=== PATIENT | female | born 1970 | race Caucasian/White ===

== ENCOUNTER 2018-06-25 23:28 | Emergency (ER) | payer MEDICARE, OTHER ==
[2018-06-25 23:38] VITALS: TEMP 98.2
--- NOTE | 2018-06-25 23:56 | ED ---
Chest Pain HPI - General Chief Complaint: Chest Pain Stated Complaint: Chest Pain Time Seen by Provider: 06/25/18 23:42 Source: patient, family Mode of arrival: ambulatory Limitations: no limitations - History of Present Illness MD Complaint: chest pain -: days(s) Onset: during rest Pain Location: substernal Pain Radiation: LUE, back Quality: aching Consistency: constant Improves With: nothing Worsens With: nothing Anginal Symptoms: nausea Other Symptoms: acid taste in mouth Treatments Prior to Arrival: none - Related Data Allergies Allergy/AdvReac Type Severity Reaction Status Date / Time alprazolam [From Xanax] Allergy Unknown Verified 06/25/18 23:38 amphetamine aspartate Allergy Unknown Verified 06/25/18 23:38 [From Adderall] amphetamine sulfate Allergy Unknown Verified 06/25/18 23:38 [From Adderall] dextroamphetamine saccharate Allergy Unknown Verified 06/25/18 23:38 [From Adderall] dextroamphetamine sulfate Allergy Unknown Verified 06/25/18 23:38 [From Adderall] pentazocine lactate Allergy Unknown Verified 06/25/18 23:38 [From Talwin] Review of Systems ROS Statement: Those systems with pertinent positive or pertinent negative responses have been documented in the HPI. ROS Other: All systems not noted in ROS Statement are negative. Constitutional: Denies: fever, chills Respiratory: Denies: cough, dyspnea Cardiovascular: Reports: chest pain. Denies: palpitations, edema, syncope Gastrointestinal: Reports: nausea. Denies: abdominal pain, vomiting Genitourinary: Denies: dysuria, hematuria Musculoskeletal: Reports: back pain (Chronic) Skin: Denies: rash Neurological: Denies: headache, weakness, numbness, paresthesias EKG Findings - EKG Results: EKG: interpreted by ZULEMA MORENO, sinus rhythm (Rate approximately 85 bpm), normal axis, normal QRS, normal ST/T, no acute changes - UT, Pacemaker, Normal: Normal tracing: normal tracing Past Medical History Past Medical History: Hypertension, Thyroid Disorder History of Any Multi-Drug Resistant Organisms: None Reported Past Surgical History: Hysterectomy, Tubal Ligation Additional Past Surgical History / Comment(s): lipoma removal Past Psychological History: Bipolar, Depression Smoking Status: Current every day smoker Past Alcohol Use History: None Reported Past Drug Use History: Marijuana General Exam Limitations: no limitations General appearance: alert, in no apparent distress, obese Head exam: Present: atraumatic, normocephalic Eye exam: Present: normal appearance. Absent: scleral icterus, conjunctival injection ENT exam: Present: normal oropharynx Neck exam: Present: normal inspection, full ROM Respiratory exam: Present: normal lung sounds bilaterally. Absent: respiratory distress, wheezes, rales, rhonchi, stridor Cardiovascular Exam: Present: regular rate, normal rhythm, normal heart sounds. Absent: systolic murmur, diastolic murmur, rubs, gallop GI/Abdominal exam: Present: soft. Absent: tenderness, guarding, rebound, rigid , mass Extremities exam: Present: normal inspection, normal capillary refill. Absent: pedal edema, calf tenderness Back exam: Present: normal inspection, paraspinal tenderness. Absent: CVA tenderness (R), CVA tenderness (L) Neurological exam: Present: alert Skin exam: Present: warm, dry, intact, normal color. Absent: rash Course Vital Signs 06/25/18 06/26/18 06/26/18 23:33 01:00 02:00 Temperature 98.2 F Pulse Rate 86 78 72 Respiratory 20 16 17 Rate Blood Pressure 135/96 121/87 117/76 O2 Sat by Pulse 98 96 96 Oximetry 06/26/18 06/26/18 03:00 04:00 Temperature Pulse Rate 87 72 Respiratory 20 12 Rate Blood Pressure 129/80 131/91 O2 Sat by Pulse 95 97 Oximetry Chest Pain MDM - MDM Further history reveals that the patient did have a stress test between 2 and 3 months ago as part of presurgical evaluation for bariatric surgery and she was told that this is normal. The patient is feeling better following the GI cocktail and would like to go home. She has had 2 negative troponins. We did discuss appropriate further care and follow-up as well as return parameters. Disposition Clinical Impression: Chest pain Disposition: HOME SELF-CARE Condition: Good Instructions: Chest Pain (ED) Is patient prescribed a controlled substance at d/c from ED?: No Referrals: Estuardo Aguirre DO [Primary Care Provider] - 1-2 days
[2018-06-26] LABS: Basophils # (A) 0.1 k/uL (0-0.2); Basophils % (A) 1 %; Eosinophils # (A) 0.3 k/uL (0-0.7); Eosinophils % (A) 3 %; HCT 43.1 % (34.0-46.0); Lymphocytes # (A) 2.3 k/uL (1.0-4.8); Lymphocytes % (A) 22 %; MCH 29.9 pg (25.0-35.0); MCHC 32.4 g/dL (31.0-37.0); MCV 92.3 fL (80.0-100.0); Mean Platelet Volume 7.5; Monocytes # (A) 0.3 k/uL (0-1.0); Monocytes % (A) 3 %; Neutrophils # (A) 7.3 k/uL (1.3-7.7); Neutrophils % (A) 70 %; Platelet Count 314 k/uL (150-450); RBC 4.66 m/uL (3.80-5.40); RDW 13.6 % (11.5-15.5); WBC 10.5 k/uL (3.8-10.6)
[2018-06-26 00:09] LABS: ALT 33 U/L (9-52); AST 25 U/L (14-36); Alkaline Phosphatase 116 U/L (38-126); Anion Gap 7 mmol/L; Blood Urea Nitrogen 12 mg/dL (7-17); Calcium 9.4 mg/dL (8.4-10.2); Carbon Dioxide 27 mmol/L (22-30); Chloride 105 mmol/L (98-107); Glucose 109 mg/dL (74-99); Magnesium 2.2 mg/dL (1.6-2.3); Potassium 3.8 mmol/L (3.5-5.1); Sodium 139 mmol/L (137-145); Total Bilirubin 0.2 mg/dL (0.2-1.3)
--- NOTE | 2018-06-26 00:15 | XR ---
EXAMINATION TYPE: XR chest 2V DATE OF EXAM: 06/26/2018 COMPARISON: NONE HISTORY: Chest pain TECHNIQUE: Frontal and lateral views of the chest are obtained. FINDINGS: Heart and mediastinum are normal. Lungs are clear. Diaphragm is normal. Bony thorax is int act. Pulmonary vascularity is normal. There are chest leads. IMPRESSION: Normal chest
[2018-06-26 00:20] LABS: Creatine Kinase 96 U/L (30-135)
[2018-06-26 00:27] LABS: INR 0.9 (<1.2); Partial Thromboplastin Time 24.7 sec (22.0-30.0); Prothrombin Time 9.4 sec (9.0-12.0)
[2018-06-26 00:30] LABS: D-Dimer 0.62 mg/L FEU (<0.60)
[2018-06-26 00:33] LABS: Creatine Kinase MB 0.5 ng/mL (0.0-2.4); Troponin I <0.012 ng/mL (0.000-0.034)
[2018-06-26] MEDS ORDERED: ONDANSETRON 4 MG/2 ML VIAL IVP STA (00:39)
[2018-06-26] MEDS ORDERED: MAG HYDROX/AL HYDROX/SIMETH 30 ML, HYOSCYAMINE ELIXIR 10 ML, CIMETIDINE HCL 300 MG, LID... PO STA ×4 (00:52)
[2018-06-26] MEDS ORDERED: HYDROcodone/APAP 10-325MG 1 EACH TAB PO ONE (00:52)
--- NOTE | 2018-06-26 02:41 | CT ---
EXAMINATION TYPE: CT chest angio for PE DATE OF EXAM: 06/26/2018 COMPARISON: None HISTORY: r/o PE chest pain CT DLP: 518.1 mGycm Automated exposure control for dose reduction was used. CONTRAST: CT Chest for pulmonary embolism performed with with IV Contrast, patient injected with 70 mL of Isovu e 370. FINDINGS: There are 3-D post processed images. The lungs are clear of consolidation. There is no evidence of a pulmonary mass. There is no pleural effusion. There is minimal subsegmental atelectasis at the left l shanda base. There is no pericardial effusion. There is normal contrast opacification of the pulmonary a rteries. There are no filling defects. There are no hilar masses. There is no mediastinal adenopathy. Thoracic aorta is intact without evidence of aneurysm or dissection. The bony thorax is intact. IMPRESSION: No evidence of pulmonary embolism. Negative exam.
[2018-06-26 04:06] VITALS: BP 131/91; PULSE 72; RESP 12
== END 2018-06-26 04:17 | disposition home or self-care (01) ==
LOC: EC 23:28
DX: R07.2 Precordial pain (principal); R11.0 Nausea; F17.200 Nicotine dependence, unspecified, uncomplicated; Z88.8 Allergy status to other drugs, medicaments and biological substances
CPT/HCPCS: 36415 ×2; 93005; 85379; 80053; 82550; 82553; 83735; 84484 ×2; 85025; 85610; 85730; 71046; 71275; 99285; 96374; J2405; Q9967

== ENCOUNTER → 2021-04-04 | Outpatient (CLI) | payer MEDICARE, OTHER ==
--- NOTE | 2021-04-05 16:44 | CT ---
EXAMINATION TYPE: CT lumbar spine wo con DATE OF EXAM: 04/04/2021 COMPARISON: HISTORY: Pt past sx hx L5/S1, several months ago bent over, felt a crack/pop. Chronic pain and numbne ss from waist to mid thigh bilaterally CT DLP: 436.50 mGycm CONTRAST: CT scan of the lumbar is performed , patient injected with mL of . TECHNIQUE: CT of the lumbar spine is performed on a spiral scan at 3 mm thick sections. Reconstructed images are performed in the coronal and sagittal planes. FINDINGS: T12-L1: No focal disc herniation or significant disc bulge is evident. No spinal canal stenosis or neural foraminal stenosis is present. L1-L2: No focal disc herniation or significant disc bulge is evident. No spinal canal stenosis or n eural foraminal stenosis is present L2-L3: Mild broad-based disc bulge present with anterior thecal sac contact. No spinal canal stenosis or neural foraminal stenosis is present. L3-L4: Broad-based disc bulge is mild anterior thecal sac compression. Facet hypertrophy and ligament um flavum laxity is posterior-lateral thecal sac impression. Some spinal canal narrowing may be prese nt. Neural foramen are patent. L4-L5: No focal disc herniation or significant disc bulge is evident. No spinal canal stenosis or n eural foraminal stenosis is present L5-S1: There is a fusion with pedicle screws at L5-S1. No focal disc herniation or significant disc b ulge is identified. Vertebral alignment appears normal. IMPRESSION: 1. Disc bulge at L2-3 discussed above, no stenosis is present. 2. L3-4 Broad-based disc bulging with mild anterior thecal sac impression. Facet hypertrophy and liga mentum flavum laxity or contribute to some spinal canal narrowing through this level
== END | disposition home or self-care (01) ==
LOC: RADCTMAIN 17:06
PROVIDERS: ATTEND Orthopaedic Surgery
DX: M51.26 Other intervertebral disc displacement, lumbar region (principal); M47.816 Spondylosis without myelopathy or radiculopathy, lumbar region; M99.73 Connective tissue and disc stenosis of intervertebral foramina of lumbar region
CPT/HCPCS: 72131

== ENCOUNTER 2021-09-05 23:31 | Inpatient (IN) | payer MEDICARE, OTHER ==
[2021-09-05] MEDS ORDERED: SODIUM CHLORIDE 0.9% 1,000 ML IV STA (23:33)
[2021-09-05] MEDS ORDERED: SODIUM CHLORIDE 0.9% 500 ML 500 ML IV STA (23:33)
--- NOTE | 2021-09-05 23:35 | ED ---
Overdose HPI - General Stated Complaint: Overdose Time Seen by Provider: 09/05/21 23:32 Source: RN notes reviewed, old records reviewed, Caregiver Mode of arrival: EMS Limitations: altered mental status - History of Present Illness Initial Comments: This is a 51-year-old female to the emergency room today. Patient presents today for evaluation of overdose or possibly taking too much over medication. Patient is currently denying suicidal thoughts. No recent travel history or sick contacts. Patient does have a long medical history, mildly responsive. A poor strain. History obtained from EMS and patient's prior chart. Patient apparently did take too much transferring as well as too much Depakote prior to arrival. MD Complaint: intentional overdose -: hour(s) Intent: unwilling to say, other (Denying suicide) How Overdose Was Discovered: family/friend present at time, called 911 Context: Accidental Overdose: uncertain what happened Associated Symptoms: depression Treatments Prior to Arrival: oxygen, IV fluids - Related Data Home Medications Medication Instructions Recorded Confirmed Albuterol Sulfate [Ventolin HFA] 1 - 2 puff INHALATION Q6H PRN 05/20/21 05/20/21 Dextroamphetamine/Amphetamine 20 mg PO DAILY 05/20/21 05/20/21 [Adderall] Divalproex ER [Depakote ER] 750 mg PO HS 05/20/21 05/20/21 Doxepin [SINEquan] 25 mg PO HS 05/20/21 05/20/21 Gabapentin [Neurontin] 600 mg PO TID 05/20/21 05/20/21 HYDROcodone/APAP 10-325MG [[place] 2 tab PO Q6HR PRN 05/20/21 05/20/21 10-325] Tiotropium 18 Mcg/Puff [Spiriva] 1 puff INHALATION DAILY PRN 05/20/21 05/20/21 Vortioxetine Hydrobromide 20 mg PO DAILY 05/20/21 05/20/21 [Trintellix] amLODIPine BESYLATE 5 mg PO DAILY 05/20/21 05/20/21 clonazePAM [KlonoPIN] 0.5 mg PO TID PRN 05/20/21 05/20/21 Allergies Allergy/AdvReac Type Severity Reaction Status Date / Time alprazolam [From Xanax] Allergy Unknown Verified 09/05/21 23:37 codeine Allergy Dyspnea Verified 09/05/21 23:37 Latex, Natural Rubber Allergy Rash/Hives Verified 09/05/21 23:37 pentazocine lactate Allergy Dyspnea Verified 09/05/21 23:37 [From Tangela] morphine AdvReac Itching Verified 09/05/21 23:37 Review of Systems ROS Statement: Those systems with pertinent positive or pertinent negative responses have been documented in the HPI. ROS Other: All systems not noted in ROS Statement are negative. Past Medical History Past Medical History: Asthma, Cancer, COPD, Hypertension, Musculoskeletal Disorder, Thyroid Disorder Additional Past Medical History / Comment(s): herniated disc, had surg. 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 cervical cancer History of Any Multi-Drug Resistant Organisms: None Reported Past Surgical History: Back Surgery, Hysterectomy, Tubal Ligation Additional Past Surgical History / Comment(s): lipoma removal, back surg. x2-2nd was fusion Past Anesthesia/Blood Transfusion Reactions: No Reported Reaction Smoking Status: Current every day smoker General Exam Limitations: altered mental status General appearance: alert, lethargic, in distress Head exam: Present: atraumatic, normocephalic, normal inspection Eye exam: Present: normal appearance, PERRL, EOMI. Absent: scleral icterus, conjunctival injection, periorbital swelling ENT exam: Present: normal exam, mucous membranes dry Neck exam: Present: normal inspection. Absent: tenderness, meningismus, lymphadenopathy Respiratory exam: Present: normal lung sounds bilaterally. Absent: respiratory distress, wheezes, rales, rhonchi, stridor Cardiovascular Exam: Present: regular rate, normal rhythm, normal heart sounds. Absent: systolic murmur, diastolic murmur, rubs, gallop, clicks GI/Abdominal exam: Present: soft, normal bowel sounds. Absent: distended, tenderness, guarding, rebound, rigid Extremities exam: Present: normal inspection, full ROM, normal capillary refill. Absent: tenderness, pedal edema, joint swelling, calf tenderness Back exam: Present: normal inspection Neurological exam: Present: alert, oriented X3, CN II-XII intact Psychiatric exam: Present: normal affect, normal mood Skin exam: Present: warm, dry, intact, normal color. Absent: rash Course Vital Signs 09/05/21 09/06/21 23:32 00:21 Temperature 97.4 F L Pulse Rate 83 95 Respiratory 14 16 Rate Blood Pressure 98/69 103/66 O2 Sat by Pulse 100 98 Oximetry - Reevaluation(s) Reevaluation #1: 09/06/21 00:51 Medical record is reviewed Reevaluation #2: 09/06/21 00:51 Is informed of results and questions are answered Reevaluation #3: 09/06/21 00:52 Patient improvement with symptomatic treatment here in the ER - Consultations Consultation #1: Spoke with jazmin who agrees to admit this patient Medical Decision Making - Medical Decision Making 51 female who took likely overdose of medication unintentional not suicidal, patient severely dehydrated with low blood pressure here in the ER blood pressure improved with hydration here in the ER. Patient will be admitted for continued hydration and monitoring - Lab Data Result diagrams: 09/05/21 23:40 Lab Results 09/05/21 09/05/21 09/06/21 Range/Units 23:40 23:42 00:04 WBC 14.6 H (3.8-10.6) k/uL RBC 4.68 (3.80-5.40) m/uL Hgb 14.8 (11.4-16.0) gm/dL Hct 43.6 (34.0-46.0) % MCV 93.2 (80.0-100.0) fL MCH 31.6 (25.0-35.0) pg MCHC 33.9 (31.0-37.0) g/dL RDW 13.8 (11.5-15.5) % Plt Count 332 (150-450) k/uL MPV 8.9 Neutrophils % 88 % Lymphocytes % 9 % Monocytes % 3 % Eosinophils % 0 % Basophils % 0 % Neutrophils # 12.8 H (1.3-7.7) k/uL Lymphocytes # 1.3 (1.0-4.8) k/uL Monocytes # 0.4 (0-1.0) k/uL Eosinophils # 0.0 (0-0.7) k/uL Basophils # 0.0 (0-0.2) k/uL POC Glucose (mg/dL) 115 H (75-99) mg/dL POC Glu [place] ID Ronna Padilla Urine HCG, Qual Not Detected (Not Detectd) - EKG Data -: EKG Interpreted by Me (EKG is sinus tachycardia 102 [place] 160 QRS 107 QTC 436`) Disposition Clinical Impression: Drug overdose, Weakness, Dehydration Narrative: Triamterene Overdose Disposition: ADMITTED IP TO THIS HOSP Condition: Fair Is patient prescribed a controlled substance at d/c from ED?: No Referrals: None,Stated [REFERRING] - 1-2 days
[2021-09-05 23:44] LABS: Glucose,Whole Blood 115 mg/dL (75-99)
[2021-09-06 00:10] LABS: Basophils % (A) 0 %; Eosinophils % (A) 0 %; HCT 43.6 % (34.0-46.0); HGB 14.8 gm/dL (11.4-16.0); Lymphocytes # (A) 1.3 k/uL (1.0-4.8); Lymphocytes % (A) 9 %; MCH 31.6 pg (25.0-35.0); MCHC 33.9 g/dL (31.0-37.0); MCV 93.2 fL (80.0-100.0); Mean Platelet Volume 8.9; Monocytes # (A) 0.4 k/uL (0-1.0); Monocytes % (A) 3 %; Neutrophils # (A) 12.8 k/uL (1.3-7.7); Neutrophils % (A) 88 %; Platelet Count 332 k/uL (150-450); RBC 4.68 m/uL (3.80-5.40); RDW 13.8 % (11.5-15.5); WBC 14.6 k/uL (3.8-10.6)
[2021-09-06 00:14] LABS: AST 36 U/L (14-36); Acetaminophen <10.0 ug/mL; African American GFR (CKD) 60 (>60 ml/min/1.73 sqM); Albumin 4.3 g/dL (3.5-5.0); Alcohol <10 mg/dL; Alkaline Phosphatase 85 U/L (38-126); Anion Gap 18 mmol/L; Blood Urea Nitrogen 26 mg/dL (7-17); Calcium 9.8 mg/dL (8.4-10.2); Carbon Dioxide 20 mmol/L (22-30); Chloride 100 mmol/L (98-107); Glucose 140 mg/dL (74-99); Lipase 65 U/L (23-300); Non-African American GFR(CKD) 52 (>60 ml/min/1.73 sqM); Phosphorus 4.2 mg/dL (2.5-4.5); Potassium 3.8 mmol/L (3.5-5.1); Salicylate <1.0 mg/dL; Sodium 138 mmol/L (137-145); Total Bilirubin 0.5 mg/dL (0.2-1.3); Total Protein 7.6 g/dL (6.3-8.2)
[2021-09-06 00:20] LABS: ALT 20 U/L (4-34)
[2021-09-06] MEDS ORDERED: SODIUM CHLORIDE 0.9% 1,000 ML IV STA (00:45)
[2021-09-06] MEDS ORDERED: ONDANSETRON 4 MG/2 ML VIAL IVP PRN (00:46)
[2021-09-06] MEDS ORDERED: NALOXONE 0.4 MG/ML 1 ML VIAL IV PRN (00:46)
[2021-09-06 00:55] LABS: Amphetamine Screen,Urine Detected (NotDetected); Barbiturate Screen,Urine Not Detected (NotDetected); Benzodiazepines Screen,Urine Not Detected (NotDetected); Cocaine Screen,Urine Not Detected (NotDetected); Methadone Screen, Urine Not Detected (NotDetected); Opiate Screen,Urine Not Detected (NotDetected); Oxycodone Screen, Urine Not Detected (NotDetected); Phencyclidine Screen,Urine Not Detected (NotDetected); Tricyclic Antidepressant,Urine Detected (NotDetected); Urn Cannabinoid Scrn Detected (NotDetected)
[2021-09-06] MEDS: SODIUM CHLORIDE 0.9% 1,000 ML IV SCH ×3 (03:36→17:07)
[2021-09-06] MEDS ORDERED: SODIUM CHLORIDE 0.9% 1,000 ML IV ONE (03:41)
--- NOTE | 2021-09-06 04:17 | P.HPIM ---
History of Present Illness H&P Date: 09/06/21 The patient is a 51-year-old female with an extensive PMH including bipolar disorder, COPD, hypertension, hypothyroidism, depression, who was brought into the emergency room after an overdose. The patient was was lethargic at the time of interview and thereby history obtained from the sister at the bedside in the ED physician. The patient reportedly told the ED staff that she took her nighttime medications including clonazepam, Flexeril, and gabapentin, and may have taken more than her usual dose. The sister however reports that the patient had been sleeping all day, although she did not pay much attention to this as the patient often sleeps during the daytime. The sister also states анна t the patient is also had multiple social stressors and she believes this may be an intentional overdose as she appeared to be depressed over the past few days. The patient was arousable but was not answering any questions appropriately. EKG in emergency room revealed sinus tachycardia with short MN interval at 102 bpm. laboratory evaluation revealed WBC count of 14.6, BUN 26, creatinine 1.22 (up from baseline of 0.6) with urine toxicology positive for amphetamines, marijuana, and TCAs. Review of systems: Pertinent positives and negatives as discussed in HPI, a complete review of systems was performed and all other systems are negative. Physical examination: General: non toxic, no distress, appears older than stated age, overweight Derm: no unusual rashes/lesions no unusual ecchymoses, warm, dry Head: atraumatic, normocephalic, symmetric Eyes: EOMI, no lid lag, anicteric sclera, pupils equal round reactive to light ENT: Nose and ears atraumatic, no thrush, no pharyngeal erythema Neck: No thyromegaly, no cervical lymphadenopathy, trachea midline, supple Mouth: no lip lesion, mucus membranes dry Cardiovascular: S1S2 reg, no murmur, positive posterior tibial pulse bilateral, no edema, capillary refill less than 2 seconds Lungs: CTA bilateral, no rhonchi, no rales , no accessory muscle use Abdominal: soft, nontender to palpation, no guarding, no appreciable organomegaly, normal bowel sounds Ext: no gross muscle atrophy, moving all extremities, no contractures, Neuro: No gross focal deficits noted although exam limited as patient not following all commands Psych: Somnolent Assessment/plan Overdose of unknown substance, multiple possible medications -Valproic level therapeutic -Salicylates and Tylenol levels unremarkable -Possibly secondary to clonazepam overdose -Continue to monitor closely -IV fluids -Cardiac monitoring -Obtain lactate levels -Question patient regarding possible suicidal ideation upon improvements in mental status Acute kidney injury -Suspect is secondary to dehydration -IV fluids DVT prophylaxis -Heparin subcu The patient is admitted with an anticipated less than 2 midnight stay for evaluation of overdose CODE STATUS: Full Code Discussed with: Patient Anticipated discharge date: 1-[address]: Home Past Medical History Past Medical History: Asthma, Cancer, COPD, Hypertension, Musculoskeletal Disorder, Thyroid Disorder Additional Past Medical History / Comment(s): herniated disc, had surg. 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 cervical cancer History of Any Multi-Drug Resistant Organisms: None Reported Past Surgical History: Back Surgery, Hysterectomy, Tubal Ligation Additional Past Surgical History / Comment(s): lipoma removal, back surg. x2-2nd was fusion Past Anesthesia/Blood Transfusion Reactions: No Reported Reaction Smoking Status: Current every day smoker Medications and Allergies Home Medications Medication Instructions Recorded Confirmed Type Albuterol Sulfate [Ventolin HFA] 1 - 2 puff INHALATION Q6H PRN 05/20/21 05/20/21 History Dextroamphetamine/Amphetamine 20 mg PO DAILY 05/20/21 05/20/21 History [Adderall] Divalproex ER [Depakote ER] 750 mg PO HS 05/20/21 05/20/21 History Doxepin [SINEquan] 25 mg PO HS 05/20/21 05/20/21 History Gabapentin [Neurontin] 600 mg PO TID 05/20/21 05/20/21 History HYDROcodone/APAP 10-325MG [[place] 2 tab PO Q6HR PRN 05/20/21 05/20/21 History 10-325] Tiotropium 18 Mcg/Puff [Spiriva] 1 puff INHALATION DAILY PRN 05/20/21 05/20/21 History Vortioxetine Hydrobromide 20 mg PO DAILY 05/20/21 05/20/21 History [Trintellix] amLODIPine BESYLATE 5 mg PO DAILY 05/20/21 05/20/21 History clonazePAM [KlonoPIN] 0.5 mg PO TID PRN 05/20/21 05/20/21 History Allergies Allergy/AdvReac Type Severity Reaction Status Date / Time alprazolam [From Xanax] Allergy Unknown Verified 09/05/21 23:37 codeine Allergy Dyspnea Verified 09/05/21 23:37 Latex, Natural Rubber Allergy Rash/Hives Verified 09/05/21 23:37 pentazocine lactate Allergy Dyspnea Verified 09/05/21 23:37 [From Talwin] morphine AdvReac Itching Verified 09/05/21 23:37 Physical Exam Vitals: Vital Signs Temp Pulse Resp BP Pulse Ox 09/06/21 02:23 97.4 F L 100 14 102/74 93 L 09/06/21 01:37 94 12 107/64 94 L 09/06/21 00:21 95 16 103/66 98 09/05/21 23:32 97.4 F L 83 14 98/69 100 Intake and Output 09/05/21 09/05/21 09/06/21 14:59 22:59 06:59 Other: Weight 77.111 kg Results CBC & Chem 7: 09/05/21 23:40 09/05/21 23:40 Labs: Abnormal Lab Results - Last 24 Hours (Table) 09/05/21 09/05/21 09/05/21 Range/Units 23:40 23:40 23:42 WBC 14.6 H (3.8-10.6) k/uL Neutrophils # 12.8 H (1.3-7.7) k/uL Carbon Dioxide 20 L (22-30) mmol/L BUN 26 H (7-17) mg/dL Creatinine 1.22 H (0.52-1.04) mg/dL Glucose 140 H (74-99) mg/dL POC Glucose (mg/dL) 115 H (75-99) mg/dL U Tricyclic Antidepress (NotDetected) Ur Amphetamines Screen (NotDetected) U Marijuana (THC) Screen (NotDetected) 09/06/21 Range/Units 00:03 WBC (3.8-10.6) k/uL Neutrophils # (1.3-7.7) k/uL Carbon Dioxide (22-30) mmol/L BUN (7-17) mg/dL Creatinine (0.52-1.04) mg/dL Glucose (74-99) mg/dL POC Glucose (mg/dL) (75-99) mg/dL U Tricyclic Antidepress Detected H (NotDetected) Ur Amphetamines Screen Detected H (NotDetected) U Marijuana (THC) Screen Detected H (NotDetected)
[2021-09-06] MEDS ORDERED: VANCOMYCIN IV PER PHARMACY 1 EACH MISC MISCELLANE PRN (04:34)
[2021-09-06] MEDS: PIPERACILLIN-TAZOBACTAM 3.375 GM in SODIUM CHLORIDE 0.9% 100 ML IVPB SCH ×2 (05:46→17:07)
[2021-09-06] MEDS ORDERED: VANCOMYCIN 1,500 MG in SODIUM CHLORIDE 0.9% 250 ML IVPB SCH (06:00)
[2021-09-06] MEDS ORDERED: HALOPERIDOL LACTATE 5 MG/ML 1 ML VIAL IM STA (07:35)
[2021-09-06 09:29] LABS: Lactic Acid, Venous 6.4 mmol/L (0.7-2.0)
[2021-09-06 09:31] LABS: AST 42 U/L (14-36); African American GFR (CKD) 88 (>60 ml/min/1.73 sqM); Albumin 3.8 g/dL (3.5-5.0); Albumin/Globulin Ratio 1.3; Alkaline Phosphatase 70 U/L (38-126); Anion Gap 14 mmol/L; Blood Urea Nitrogen 23 mg/dL (7-17); Carbon Dioxide 20 mmol/L (22-30); Chloride 104 mmol/L (98-107); Glucose 139 mg/dL (74-99); Non-African American GFR(CKD) 76 (>60 ml/min/1.73 sqM); Potassium 3.2 mmol/L (3.5-5.1); Sodium 138 mmol/L (137-145); Total Bilirubin 0.6 mg/dL (0.2-1.3); Total Protein 6.8 g/dL (6.3-8.2)
[2021-09-06 09:34] LABS: HGB 13.2 gm/dL (11.4-16.0); MCH 31.5 pg (25.0-35.0); MCHC 32.9 g/dL (31.0-37.0); MCV 95.7 fL (80.0-100.0); Mean Platelet Volume 8.7; Platelet Count 267 k/uL (150-450); RBC 4.18 m/uL (3.80-5.40); RDW 13.3 % (11.5-15.5); WBC 19.3 k/uL (3.8-10.6)
[2021-09-06 09:44] LABS: ALT 24 U/L (4-34)
[2021-09-06] MEDS: HEPARIN SODIUM,PORCINE/PF 5,000 UNIT/0.5 ML SYRINGE SQ SCH ×3 (10:13→22:31)
[2021-09-06 12:14] LABS: Appearance,Urine Cloudy (Clear); Bilirubin,Urine Negative (Negative); Blood,Urine Negative (Negative); Color,Urine Yellow; Glucose,Urine (UA) Negative (Negative); Hyaline Casts,Urine 1 /lpf (0-2); Ketones,Urine Negative (Negative); Leukocyte Esterase,Urine Negative (Negative); Mucus,Urine Rare /hpf; Nitrite,Urine Negative (Negative); PH, Urine 6.5 (5.0-8.0); Protein,Urine Negative (Negative); RBC,Urine 1 /hpf (0-5); Specific Gravity,Urine 1.014 (1.001-1.035); Squamous Epithelial Cell,Urine 2 /hpf (0-4); Urobilinogen,Urine <2.0 mg/dL (<2.0); WBC,Urine 1 /hpf (0-5)
[2021-09-06] MEDS: PANTOPRAZOLE 40 MG/10 ML VIAL IV SCH (14:03)
--- NOTE | 2021-09-06 14:03 | XR ---
EXAMINATION TYPE: XR chest 1V portable DATE OF EXAM: 09/06/2021 COMPARISON: X-ray dated 06/26/2018 HISTORY: Pneumonia TECHNIQUE: Single frontal view of the chest is obtained. FINDINGS: Elongated opacity seen in the left mid to lower lung zone with a triangular opacity in the left lung base. They could represent areas of pneumonia versus atelectasis, please correlate clinically. Follow -up to complete resolution is advised as they were not appreciated on the previous x-ray. Grossly unremarkable remainder of the lungs. No sizable pleural effusion or definite pneumothorax. No cardiomegaly. Osteophytosis of the inferior aspect of the left humeral head. IMPRESSION: New opacities in the left mid to lower lung zones as described above, pneumonia versus atelectasis. R ecommend clinical correlation and follow-up to complete resolution after appropriate treatment.
[2021-09-06] MEDS ORDERED: HALOPERIDOL LACTATE 5 MG/ML 1 ML VIAL IM PRN (16:12)
[2021-09-06] MEDS ORDERED: AZITHROMYCIN 500 MG TAB PO STA (17:43)
[2021-09-06] MEDS ORDERED: AMOXIC-POT CLAV 875-125MG 1 EACH TAB PO STA (17:43)
[2021-09-06] MEDS ORDERED: HYDROcodone/APAP 10-325MG 1 EACH TAB PO PRN (17:52)
[2021-09-06] MEDS ORDERED: ALBUTEROL NEBULIZED 2.5 MG/3 ML INHALATION PRN (17:53)
[2021-09-06] MEDS ORDERED: clonazePAM 0.5 MG TAB PO PRN (17:56)
--- NOTE | 2021-09-06 17:58 | P.PN ---
Subjective Progress Note Date: 09/06/21 (delayed charting seen at 0930) Principal diagnosis: suicide attempt Patient is a 51-year-old female with multiple comorbid conditions including COPD, hypertension, hypothyroidism, bipolar disorder, and history of prior overdose attempts was brought to the emergency room after an overdose. In the ER she was found to be rather lethargic. EKG demonstrated sinus tachycardia with short [place] interval at 102. Laboratory analysis demonstrated white blood cell count at 14.6, BUN 26, creatinine 1.22 up from a baseline of 0.6. Urine toxicology was positive for amphetamines, marijuana, and TCAs. She was admitted and started on IV fluids. She did become slightly hypotensive overnight and required 2 L bolus. She was also started on Zosyn with concerns for possible sepsis. On the morning of 09/06 she became arousable and very agitated. She required IM Haldol. She reports that her IV and was refusing all medical interventions. Patient seen and examined at bedside. She is requesting to be discharged. She states she needs to go home. I asked her why she took some any pills and she stated she was depressed and didn't know what to do with herself anymore. She denies any nausea, vomiting, shortness of breath. She demands that she be released I told her we are unable to. Her lactic acid is elevated at 6 I strongly recommended that she allow us to r econsider her IV for fluid hydration. She denies continued to refuse care. We discussed risks and benefits and was clear the patient was not capable of full understanding risks and benefits at this time due to being upset about wanting to leave. General: non toxic, no distress, appears at stated age Derm: warm, dry Head: atraumatic, normocephalic, symmetric Eyes: EOMI, no lid lag, anicteric sclera Mouth: no lip lesion, [mucus membranes dry Cardiovascular: S1S2 reg, no murmur, positive posterior tibial pulse bilateral, Lungs: Decreased breath sounds bilateral, no rhonchi, no rales , no accessory muscle use Abdominal: soft, nontender to palpation, no guarding, no appreciable organomegaly Ext: no gross muscle atrophy, no edema, no contractures Neuro: CN II-XI grossly intact, no focal neuro deficits Psych: Alert, oriented, angry, hostile, and argumentative Suicide attempt Intentional Depakote overdose Patient had a petition filled out, I did fill out a certification and she is kelvin sekou not understanding of her need for treatment at this time and cannot comprehend risks versus benefits. However I do not feel there is an indication to treat over objection. We'll attempt to continue to treat the patient with Haldol and increase her compliance. Should she become more lethargic we will get an insert an IV and it received with rapid fluid resuscitation for her sepsis. Pneumonia with sepsis -Ideally would proceed with IV antibiotics, however patient adamantly refusing to have an IV reinserted. Therefore we'll attempt oral Zithromax and Augmentin. -Repeat chest x-ray as indicated -Patient will not produce sputum cultures. -Urinalysis was negative Elevated lactic acidosis which may be secondary to Depakote ingestion versus sepsis Acute kidney injury -Continue to follow lactic acid -Encourage oral fluid intake as patient has refused IV access - reapt labs in AM HTN, now with hypotnesion - hod triamterene/HCTZ - follow BP Hypothyroidism - synthroid Tobacco abuse - cesation - nicotine replacement DVT prophylaxis: early ambulation Discussed with: patient, nursing Anticipated discharge: in 1-[address]: MHU A total of 65 minutes was spent on the care of this complex patient more than 50% of the time was spent in counseling and care coordination. Objective - Vital Signs Vital signs: Vital Signs Temp 98.3 F 09/06/21 15:22 Pulse 98 09/06/21 15:22 Resp 18 09/06/21 15:22 BP 101/64 09/06/21 15:22 Pulse Ox 96 09/06/21 15:22 Intake & Output 09/05/21 09/06/21 09/06/21 18:59 06:59 18:59 Weight 77.111 kg - Labs CBC & Chem 7: 09/06/21 09:01 09/06/21 09:01 Labs: Abnormal Lab Results - Last 24 Hours (Table) 09/05/21 09/05/21 09/05/21 Range/Units 23:40 23:40 23:42 WBC 14.6 H (3.8-10.6) k/uL Neutrophils # 12.8 H (1.3-7.7) k/uL Potassium (3.5-5.1) mmol/L Carbon Dioxide 20 L (22-30) mmol/L BUN 26 H (7-17) mg/dL Creatinine 1.22 H (0.52-1.04) mg/dL Glucose 140 H (74-99) mg/dL POC Glucose (mg/dL) 115 H (75-99) mg/dL Plasma Lactic Acid Mahamed (0.7-2.0) mmol/L AST (14-36) U/L Urine Appearance (Clear) Urine Mucus (None) /hpf U Tricyclic Antidepress (NotDetected) Ur Amphetamines Screen (NotDetected) U Marijuana (THC) Screen (NotDetected) 09/06/21 09/06/21 09/06/21 Range/Units 00:03 03:47 09:01 WBC (3.8-10.6) k/uL Neutrophils # (1.3-7.7) k/uL Potassium (3.5-5.1) mmol/L Carbon Dioxide (22-30) mmol/L BUN (7-17) mg/dL Creatinine (0.52-1.04) mg/dL Glucose (74-99) mg/dL POC Glucose (mg/dL) (75-99) mg/dL Plasma Lactic Acid Mahamed 6.0 H* 6.4 H* (0.7-2.0) mmol/L AST (14-36) U/L Urine Appearance (Clear) Urine Mucus (None) /hpf U Tricyclic Antidepress Detected H (NotDetected) Ur Amphetamines Screen Detected H (NotDetected) U Marijuana (THC) Screen Detected H (NotDetected) 09/06/21 09/06/21 09/06/21 Range/Units 09:01 09:01 10:50 WBC 19.3 H (3.8-10.6) k/uL Neutrophils # (1.3-7.7) k/uL Potassium 3.2 L (3.5-5.1) mmol/L Carbon Dioxide 20 L (22-30) mmol/L BUN 23 H (7-17) mg/dL Creatinine (0.52-1.04) mg/dL Glucose 139 H (74-99) mg/dL POC Glucose (mg/dL) (75-99) mg/dL Plasma Lactic Acid Mahamed (0.7-2.0) mmol/L AST 42 H (14-36) U/L Urine Appearance Cloudy H (Clear) Urine Mucus Rare H (None) /hpf U Tricyclic Antidepress (NotDetected) Ur Amphetamines Screen (NotDetected) U Marijuana (THC) Screen (NotDetected)
[2021-09-06] MEDS: NICOTINE 21MG/24HR PATCH TRANSDERM SCH (18:18)
[2021-09-06] MEDS ORDERED: POTASSIUM CHLORIDE ER 20 MEQ TAB.ER PO STA (22:01)
[2021-09-06] MEDS: AMOXIC-POT CLAV 875-125MG 1 EACH TAB PO SCH ×2 (22:25)
[2021-09-06] MEDS: PRAMIPEXOLE 1 MG TAB PO SCH ×2 (22:25)
[2021-09-06] MEDS: GABAPENTIN 300 MG CAP PO SCH (22:25)
[2021-09-07] MEDS: SODIUM CHLORIDE 0.9% 1,000 ML IV SCH (01:42)
[2021-09-07] MEDS: LEVOTHYROXINE 25 MCG TAB PO SCH (06:03)
[2021-09-07] MEDS: PANTOPRAZOLE 40 MG/10 ML VIAL IV SCH (07:50)
[2021-09-07] MEDS: NICOTINE 21MG/24HR PATCH TRANSDERM SCH (07:57)
[2021-09-07] MEDS: AMOXIC-POT CLAV 875-125MG 1 EACH TAB PO SCH ×2 (07:58→20:15)
[2021-09-07] MEDS: AZITHROMYCIN 500 MG TAB PO SCH (07:58)
[2021-09-07] MEDS: GABAPENTIN 300 MG CAP PO SCH ×3 (07:58→20:15)
[2021-09-07] MEDS: HEPARIN SODIUM,PORCINE/PF 5,000 UNIT/0.5 ML SYRINGE SQ SCH ×3 (08:03→23:06)
[2021-09-07] MEDS: IPRATROPIUM 0.5 MG/2.5 ML NEBU INHALATION SCH ×4 (08:19→19:36)
[2021-09-07 08:53] LABS: Basophils # (A) 0.04 X 10*3/uL (0.00-0.10); Basophils % (A) 0.2 %; Eosinophils # (A) 0.05 X 10*3/uL (0.04-0.35); Eosinophils % (A) 0.2 %; HCT 37.8 % (37.2-46.3); HGB 12.5 g/dL (12.0-15.0); Immature Grans, Automated 0.8 %; Lymphocytes % (A) 5.9 %; MCH 31.2 pg (27.0-32.0); MCHC 33.1 g/dL (32.0-37.0); MCV 94.3 fL (80.0-97.0); Monocytes # (A) 0.79 X 10*3/uL (0.20-1.00); Monocytes % (A) 3.9 %; NRBC Per 100 WBC 0 /100 WBCS (0.0-0.0); Neutrophils # (A) 18.07 X 10*3/uL (1.80-7.70); Platelet Count 264 X 10*3/uL (140-440); RBC 4.01 X 10*6/uL (4.10-5.20); RDW 13.6 % (11.5-14.5); WBC 20.31 X 10*3/uL (4.50-10.00)
[2021-09-07 09:06] LABS: African American GFR (CKD) 100.3 (60.0-200.0); Albumin 3.5 g/dL (3.8-4.9); Albumin/Globulin Ratio 1.46 (1.60-3.17); Anion Gap 12.5 mmol/L (10.00-18.00); BUN/Creat Ratio 16.5 Ratio (12.00-20.00); Blood Urea Nitrogen 13.2 mg/dL (9.0-27.0); Calcium 8.9 mg/dL (8.7-10.3); Carbon Dioxide 27.5 mmol/L (20.0-27.5); Globulin 2.4 g/dL (1.6-3.3); Non-African American GFR(CKD) 86.6 (60.0-200.0); Potassium 3.5 mmol/L (3.5-5.5); Total Bilirubin 0.6 mg/dL (0.30-1.20); Total Protein 5.9 g/dL (6.2-8.2)
--- NOTE | 2021-09-07 11:35 | P.PN ---
Progress Note - Text Progress Note Date: 09/07/21 medically optimized for discharge. Awaiting mental health evaluation. Will need 5 days of oral antibiotics. Formal note or discharge summary to follow after mental health assessment.
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
--- NOTE | 2021-09-07 17:00 | P.PN ---
Subjective Progress Note Date: 09/07/21 (delayed charting seen at 1130) Principal diagnosis: suicide attempt Patient is a 51-year-old female with multiple comorbid conditions including COPD, hypertension, hypothyroidism, bipolar disorder, and history of prior overdose attempts was brought to the emergency room after an overdose. In the ER she was found to be rather lethargic. EKG demonstrated sinus tachycardia with short [place] interval at 102. Laboratory analysis demonstrated white blood cell count at 14.6, BUN 26, creatinine 1.22 up from a baseline of 0.6. Urine toxicology was positive for amphetamines, marijuana, and TCAs. She was admitted and started on IV fluids. She did become slightly hypotensive overnight and required 2 L bolus. She was also started on Zosyn with concerns for possible sepsis. On the morning of 09/06 she became arousable and very agitated. She required IM Haldol. She reports that her IV and was refusing all medical interventions. Her psychosis was improved on 09/07. Patient seen and examined at bedside. She is feeling much better today. Slight cough, No body aches, No nausea. General: non toxic, no distress, appears at stated age Derm: warm, dry, multiple tattoos Head: atraumatic, normocephalic, symmetric Eyes: EOMI, no lid lag, anicteric sclera Mouth: no lip lesion, [mucus membranes dry Cardiovascular: S1S2 reg, no murmur, positive posterior tibial pulse bilateral, Lungs: course breath sounds bilateral, no rhonchi, no rales , no accessory muscle use Abdominal: soft, nontender to palpation, no guarding, no appreciable organomegaly Ext: no gross muscle atrophy, no edema, no contractures Neuro: CN II-XI grossly intact, no focal neuro deficits Psych: Alert, oriented, appropriate affect Suicide attempt Intentional Depakote overdose - psych recs appreciated no indication for MHU at this time. Pneumonia with sepsis, sepsis resolved -encourage oral fluids - zithromax and augmentin -Repeat chest x-ray as indicated -Patient will not produce sputum cultures. -Urinalysis was negative Elevated lactic acidosis which may be secondary to Depakote ingestion versus sepsis, resolved Acute kidney injury, resolved HTN, controlled - Continue to hold triamterene/HCTZ - follow BP Hypothyroidism - synthroid Tobacco abuse - cesation - nicotine replacement DVT prophylaxis: early ambulation Discussed with: patient, nursing Anticipated discharge: in AM Anticipated discharge place: undetermined A total of 35 minutes was spent on the care of this complex patient more than 50% of the time was spent in counseling and care coordination. Objective - Vital Signs Vital signs: Vital Signs Temp 98.6 F 09/07/21 08:00 Pulse 87 09/07/21 08:00 Resp 16 09/07/21 08:00 BP 95/59 09/07/21 08:00 Pulse Ox 91 L 09/07/21 08:00 Intake & Output 09/06/21 09/07/21 09/07/21 18:59 06:59 18:59 Output Total 4 Balance -4 Output: Urine 4 Other: # Voids 1 2 - Labs CBC & Chem 7: 09/07/21 03:54 09/07/21 03:54 Labs: Abnormal Lab Results - Last 24 Hours (Table) 09/07/21 09/07/21 Range/Units 03:54 03:54 WBC 20.31 H (4.50-10.00) X 10*3/uL RBC 4.01 L (4.10-5.20) X 10*6/uL Immature Gran # 0.16 H (0.00-0.04) X 10*3/uL Neutrophils # 18.07 H (1.80-7.70) X 10*3/uL Total Protein 5.9 L (6.2-8.2) g/dL Albumin 3.5 L (3.8-4.9) g/dL Albumin/Globulin Ratio 1.46 L (1.60-3.17) g/dL
[2021-09-07] MEDS: PRAMIPEXOLE 1 MG TAB PO SCH (20:15)
[2021-09-08] MEDS ORDERED: VANCOMYCIN TROUGH DUE 1 EACH MISC MISCELLANE ONE (05:00)
[2021-09-08 05:52] LABS: MCH 31.5 pg (25.0-35.0); MCHC 33.4 g/dL (31.0-37.0); MCV 94.5 fL (80.0-100.0); Mean Platelet Volume 8.8; Platelet Count 224 k/uL (150-450); RBC 3.81 m/uL (3.80-5.40); RDW 13.1 % (11.5-15.5); WBC 16.4 k/uL (3.8-10.6)
[2021-09-08 06:03] LABS: African American GFR (CKD) >90 (>60 ml/min/1.73 sqM); Anion Gap 6 mmol/L; Blood Urea Nitrogen 16 mg/dL (7-17); Calcium 8.5 mg/dL (8.4-10.2); Carbon Dioxide 30 mmol/L (22-30); Chloride 96 mmol/L (98-107); Glucose 90 mg/dL (74-99); Non-African American GFR(CKD) >90 (>60 ml/min/1.73 sqM); Potassium 3.5 mmol/L (3.5-5.1); Sodium 132 mmol/L (137-145)
[2021-09-08] MEDS ORDERED: PANTOPRAZOLE 40 MG TABLET PO SCH (07:30)
[2021-09-08] MEDS: NICOTINE 21MG/24HR PATCH TRANSDERM SCH (07:53)
[2021-09-08] MEDS: HEPARIN SODIUM,PORCINE/PF 5,000 UNIT/0.5 ML SYRINGE SQ SCH ×2 (07:53→15:10)
[2021-09-08] MEDS: AMOXIC-POT CLAV 875-125MG 1 EACH TAB PO SCH (07:54)
[2021-09-08] MEDS: AZITHROMYCIN 500 MG TAB PO SCH (07:54)
[2021-09-08] MEDS: LEVOTHYROXINE 25 MCG TAB PO SCH (07:54)
[2021-09-08] MEDS: GABAPENTIN 300 MG CAP PO SCH ×2 (07:54→15:48)
[2021-09-08] MEDS: IPRATROPIUM 0.5 MG/2.5 ML NEBU INHALATION SCH ×3 (08:09→15:15)
[2021-09-08 14:43] VITALS: BP 94/60; PULSE 95; RESP 18; TEMP 98.4
--- NOTE | 2021-09-08 15:49 | P.DS ---
Providers Date of admission: 09/06/21 05:26 Expected date of discharge: 09/08/21 Attending physician: Loyd Laurent MD Consults: 09/06/21 11:42 Consult Physician Routine Consulting Provider: Gianluca Chau Consult Reason/Comments: suicide attempt Do you want consulting provider notified?: Yes Primary care physician: Estuardo Aguirre Hospital Course: Discharge Diagnosis: Intentional Depakote overdose Pneumonia with sepsis, sepsis resolved Elevated lactic acidosis which may be secondary to Depakote ingestion versus sepsis, resolved Acute kidney injury, resolved HTN, controlled Hypothyroidism Tobacco abuse Hospital Course: Patient is a 51-year-old female with multiple comorbid conditions including COPD, hypertension, hypothyroidism, bipolar disorder, and history of prior overdose attempts was brought to the emergency room after an overdose. In the ER she was found to be rather lethargic. EKG demonstrated sinus tachycardia with short [place] interval at 102. Laboratory analysis demonstrated white blood cell count at 14.6, BUN 26, creatinine 1.22 up from a baseline of 0.6. Urine toxicology was positive for amphetamines, marijuana, and TCAs. She was admitted and started on IV fluids. She did become slightly hypotensive overnight and required 2 L bolus. She was also started on Zosyn with concerns for possible sepsis. On the morning of 09/06 she became arousable and very agitated. She required IM Haldol. She ripper out her IV and was refusing all medical interventions. Her psychosis was improved on 09/07. She was seen by psychiatry who felt she did not need inpatient admission. Her pneumonia improved. She was determined stable for discharge home. Follow-up: She'll complete 3 additional days of Zithromax and Augmentin. She'll follow up with [facility] on 09/12. She'll remain off Depakote told that time. Patient seen and examined at bedside. No shortness of breath, no nausea, no vomiting, + cough getting better Vital signs reviewed and stable. General: non toxic, no distress, appears at stated age Derm: warm, dry, tattoos Head: atraumatic, normocephalic, symmetric Eyes: EOMI, no lid lag, anicteric sclera Mouth: no lip lesion, mucus membranes moist Cardiovascular: S1S2 reg, no murmur, positive posterior tibial pulse bilateral, Lungs: Course bs bilateral, no rhonchi, no rales , no accessory muscle use Abdominal: soft, nontender to palpation, no guarding, no appreciable organomegaly Ext: no gross muscle atrophy, no edema, no contractures Neuro: CN II-XI grossly intact, no focal neuro deficits Psych: Alert, oriented, appropriate affect A total of 35 minutes of time were spent preparing this complex discharge summary . Patient Condition at Discharge: Fair Plan - Discharge Summary New Discharge Prescriptions: New Amoxic-Pot Clav 875-125Mg [Augmentin 875-125] 1 each PO Q12HR #6 tab Azithromycin [Zithromax] 500 mg PO DAILY #3 tab Continue Tiotropium 18 Mcg/Puff [Spiriva] 1 puff INHALATION RT-DAILY clonazePAM [KlonoPIN] 0.5 mg PO QAM Vortioxetine Hydrobromide [Trintellix] 20 mg PO DAILY Fluticasone Nasal [place] [Flonase Nasal [place]] 2 spray EA NOSTRIL DAILY Doxepin [SINEquan] 10 mg PO HS Dexlansoprazole [Dexilant] 60 mg PO DAILY clonazePAM [KlonoPIN] 1 mg PO HS Meloxicam [Mobic] 15 mg PO DAILY Cyclobenzaprine [Flexeril] 10 mg PO TID PRN PRN Reason: Muscle Spasm HYDROcodone/APAP 10-325MG [[place] 10-325] 2 tab PO Q6HR PRN PRN Reason: Pain Levothyroxine Sodium [Synthroid] 25 mcg PO DAILY Triamterene/Hydrochlorothiazid [Dyazide 37.5-25 Capsule] 1 cap PO DAILY Pramipexole [Mirapex] 1 mg PO HS Gabapentin [Neurontin] 600 mg PO TID Discontinued Divalproex [Depakote] 250 mg PO HS Divalproex [Depakote] 500 mg PO HS Discharge Medication List HYDROcodone/APAP 10-325MG [[place] 10-325] 2 tab PO Q6HR PRN 05/20/21 [History] Tiotropium 18 Mcg/Puff [Spiriva] 1 puff INHALATION RT-DAILY 05/20/21 [History] Vortioxetine Hydrobromide [Trintellix] 20 mg PO DAILY 05/20/21 [History] clonazePAM [KlonoPIN] 0.5 mg PO QAM 05/20/21 [History] Cyclobenzaprine [Flexeril] 10 mg PO TID PRN 09/06/21 [History] Dexlansoprazole [Dexilant] 60 mg PO DAILY 09/06/21 [History] Doxepin [SINEquan] 10 mg PO HS 09/06/21 [History] Fluticasone Nasal [place] [Flonase Nasal [place]] 2 spray EA NOSTRIL DAILY 09/06/21 [History] Gabapentin [Neurontin] 600 mg PO TID 09/06/21 [History] Levothyroxine Sodium [Synthroid] 25 mcg PO DAILY 09/06/21 [History] Meloxicam [Mobic] 15 mg PO DAILY 09/06/21 [History] Pramipexole [Mirapex] 1 mg PO HS 09/06/21 [History] Triamterene/Hydrochlorothiazid [Dyazide 37.5-25 Capsule] 1 cap PO DAILY 09/06/21 [History] clonazePAM [KlonoPIN] 1 mg PO HS 09/06/21 [History] Amoxic-Pot Clav 875-125Mg [Augmentin 875-125] 1 each PO Q12HR #6 tab 09/08/21 [Rx] Azithromycin [Zithromax] 500 mg PO DAILY #3 tab 09/08/21 [Rx] Follow up Appointment(s)/Referral(s): None,Stated [REFERRING] - 1-2 days [facility] [NON-STAFF] - 09/12/21 (Suggested per Dr. Leonardo to change depakote to lamictal. Please keep scheduled appt) Patient Instructions/Handouts: Adult Overdose (ED) Activity/Diet/Wound Care/Special Instructions: Activity: as tolerated Diet: regular Special Instructions: Complete antibiotics Stay off depakote until seen by [facility] Discharge Disposition: HOME SELF-CARE
--- NOTE | 2021-09-08 18:19 | P.PN ---
Subjective Progress Note Date: 09/08/21 Principal diagnosis: Consultation progress note She was seen today on the unit in follow up. I have updated from her RN on the unit commenting she was ready to be medically discharged. No outstanding medical problem was pending. She was convinced that she did not want to transfe red to the MHU for further stabilization. She considered her suicidal atempt to be reactive towards the custody conflict revolving the child . She was convinced that she could work out the custody plan in the [facility] family court or family services. She is aware that her bipolar disorder Rx need to be adjusted or titrated so that her mood fluctuations can be better controlled. No further suicidal or homicidal ideation. No ground for certification . Diagnosis; Bipolar disorder residual depressive symptoms; she was observed to be sobbing slightly but quickly controlled her mood. No delirium or fixation upon suicidal plan . Follow up: she has an appointment with Mental health Clinic the coming week. Objective - Vital Signs Vital signs: Vital Signs Temp 98.4 F 09/08/21 14:00 Pulse 95 09/08/21 14:00 Resp 18 09/08/21 14:00 BP 94/60 09/08/21 14:00 Pulse Ox 93 L 09/08/21 14:00 Intake & Output 09/07/21 09/08/21 09/08/21 18:59 06:59 18:59 Other: # Voids 2 1 3 - Labs CBC & Chem 7: 09/08/21 05:20 09/08/21 05:20 Labs: Abnormal Lab Results - Last 24 Hours (Table) 09/08/21 09/08/21 Range/Units 05:20 05:20 WBC 16.4 H (3.8-10.6) k/uL Sodium 132 L (137-145) mmol/L Chloride 96 L (98-107) mmol/L
== END 2021-09-08 17:16 | disposition home or self-care (01) | DRG 871 ==
LOC: EC 23:31 → 4SSUR 09-06 00:46 → OBSVTOIN 09-06 05:26
PROVIDERS: ADMIT Internal Medicine; ATTEND Internal Medicine
DX: A41.9 Sepsis, unspecified organism (principal); J18.9 Pneumonia, unspecified organism; E87.2 Acidosis; J44.0 Chronic obstructive pulmonary disease with (acute) lower respiratory infection; N17.9 Acute kidney failure, unspecified; T42.6X2A Poisoning by other antiepileptic and sedative-hypnotic drugs, intentional self-harm, initial encounter; E03.9 Hypothyroidism, unspecified; E86.0 Dehydration; Z20.822 Contact with and (suspected) exposure to COVID-19; I95.9 Hypotension, unspecified; F17.200 Nicotine dependence, unspecified, uncomplicated; F31.9 Bipolar disorder, unspecified; I10 Essential (primary) hypertension; Z79.899 Other long term (current) drug therapy; Z85.41 Personal history of malignant neoplasm of cervix uteri; Z90.710 Acquired absence of both cervix and uterus; Z88.5 Allergy status to narcotic agent; Z88.8 Allergy status to other drugs, medicaments and biological substances; Z91.040 Latex allergy status
CPT/HCPCS: 36415; 71045; 80048; 80053; 80143; 80164; 80179; 80306; 80320; 81001; 81025; 82140; 83605; 83690; 83735; 84100; 85025; 85027; 87635; 93005; 94640; 94760; 96360; 99285

== ENCOUNTER 2021-12-04 22:31 | Inpatient (IN) | payer MEDICARE, OTHER ==
[2021-12-04] MEDS ORDERED: SODIUM CHLORIDE 0.9% 1,000 ML IV STA ×2 (22:44)
[2021-12-04] MEDS ORDERED: DEXTROSE 50% SYRINGE 50 ML IVP STA (22:44)
[2021-12-04] MEDS ORDERED: SODIUM CHLORIDE 0.9% 500 ML 500 ML IV STA (22:44)
[2021-12-04] MEDS ORDERED: NALOXONE 0.4 MG/ML 1 ML VIAL IVP STA (22:44)
--- NOTE | 2021-12-04 22:48 | ED ---
Altered Mental Status HPI - General Stated Complaint: Possible overdose Time Seen by Provider: 12/04/21 22:40 Source: RN notes reviewed, old records reviewed Mode of arrival: EMS Limitations: altered mental status, physical limitation - History of Present Illness Initial Comments: This is a 51 year female to the emergency room today for altered mental status. Patient had police called to the house due to domestic dispute is patient then went to the bathroom and came out and became very slurred speech was not speaking very well. Patient per EMS continue to have some altered mental status. Patient has some significant unresponsiveness. Patient has otherwise no travel history or sick contacts, per her records patient does have prior history of overdose. EMS provides history MD Complaint: altered mental status, decreased responsiveness, weakness -: unknown Severity: severe Consistency of Symptoms: getting worse, constant Context: unknown Associated Symptoms: other (AMS) Treatments Prior to Arrival: IV fluid, oxygen - Related Data Home Medications Medication Instructions Recorded Confirmed HYDROcodone/APAP 10-325MG [[place] 2 tab PO Q6HR PRN 05/20/21 09/06/21 10-325] Tiotropium 18 Mcg/Puff [Spiriva] 1 puff INHALATION RT-DAILY 05/20/21 09/06/21 Vortioxetine Hydrobromide 20 mg PO DAILY 05/20/21 09/06/21 [Trintellix] clonazePAM [KlonoPIN] 0.5 mg PO QAM 05/20/21 09/06/21 Cyclobenzaprine [Flexeril] 10 mg PO TID PRN 09/06/21 09/06/21 Dexlansoprazole [Dexilant] 60 mg PO DAILY 09/06/21 09/06/21 Doxepin [SINEquan] 10 mg PO HS 09/06/21 09/06/21 Fluticasone Nasal [place] [Flonase 2 spray EA NOSTRIL DAILY 09/06/21 09/06/21 Nasal [place]] Gabapentin [Neurontin] 600 mg PO TID 09/06/21 09/06/21 Levothyroxine Sodium [Synthroid] 25 mcg PO DAILY 09/06/21 09/06/21 Meloxicam [Mobic] 15 mg PO DAILY 09/06/21 09/06/21 Pramipexole [Mirapex] 1 mg PO HS 09/06/21 09/06/21 Triamterene/Hydrochlorothiazid 1 cap PO DAILY 09/06/21 09/06/21 [Dyazide 37.5-25 Capsule] clonazePAM [KlonoPIN] 1 mg PO HS 09/06/21 09/06/21 Previous Rx's Medication Instructions Recorded Amoxic-Pot Clav 875-125Mg 1 each PO Q12HR #6 tab 09/08/21 [Augmentin 875-125] Azithromycin [Zithromax] 500 mg PO DAILY #3 tab 09/08/21 Allergies Allergy/AdvReac Type Severity Reaction Status Date / Time alprazolam [From Xanax] Allergy Unknown Verified 09/06/21 11:25 codeine Allergy Dyspnea Verified 09/06/21 11:25 Latex, Natural Rubber Allergy Rash/Hives Verified 09/06/21 11:25 pentazocine lactate Allergy Dyspnea Verified 09/06/21 11:25 [From Talwin] morphine AdvReac Itching Verified 09/06/21 11:25 Review of Systems ROS Statement: Those systems with pertinent positive or pertinent negative responses have been documented in the HPI. ROS Other: All systems not noted in ROS Statement are negative. Past Medical History Past Medical History: Asthma, Cancer, COPD, Hypertension, Musculoskeletal Disorder, Thyroid Disorder Additional Past Medical History / Comment(s): herniated disc, had surg. 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 cervical cancer History of Any Multi-Drug Resistant Organisms: None Reported Past Surgical History: Back Surgery, Hysterectomy, Tubal Ligation Additional Past Surgical History / Comment(s): lipoma removal, back surg. x2-2nd was fusion Past Anesthesia/Blood Transfusion Reactions: No Reported Reaction Smoking Status: Current every day smoker General Exam Limitations: altered mental status, physical limitation General appearance: alert, lethargic, obtunded, in distress Head exam: Present: atraumatic, normocephalic, normal inspection Eye exam: Present: normal appearance, PERRL, EOMI. Absent: scleral icterus, conjunctival injection, periorbital swelling ENT exam: Present: normal exam, mucous membranes moist Neck exam: Present: normal inspection. Absent: tenderness, meningismus, lymphadenopathy Respiratory exam: Present: normal lung sounds bilaterally. Absent: respiratory distress, wheezes, rales, rhonchi, stridor Cardiovascular Exam: Present: regular rate, normal rhythm, normal heart sounds. Absent: systolic murmur, diastolic murmur, rubs, gallop, clicks GI/Abdominal exam: Present: soft, normal bowel sounds. Absent: distended, tenderness, guarding, rebound, rigid Extremities exam: Present: normal inspection, full ROM, normal capillary refill. Absent: tenderness, pedal edema, joint swelling, calf tenderness Back exam: Present: normal inspection Neurological exam: Present: alert, oriented X3, CN II-XII intact Psychiatric exam: Present: normal affect, normal mood Skin exam: Present: warm, dry, intact, normal color. Absent: rash Course Vital Signs 12/04/21 12/04/21 12/04/21 22:40 22:45 22:55 Temperature Pulse Rate 78 70 Respiratory 14 12 12 Rate Blood Pressure 67/38 62/41 O2 Sat by Pulse 96 97 Oximetry 12/04/21 12/04/21 12/04/21 23:00 23:15 23:30 Temperature 96.8 F L Pulse Rate 73 71 72 Respiratory 12 12 12 Rate Blood Pressure 59/38 64/38 60/38 O2 Sat by Pulse 97 97 97 Oximetry 12/04/21 12/05/21 12/05/21 23:45 00:00 00:15 Temperature Pulse Rate 71 71 71 Respiratory 12 12 12 Rate Blood Pressure 56/35 55/37 53/33 O2 Sat by Pulse 97 97 97 Oximetry 12/05/21 12/05/21 12/05/21 00:30 00:45 01:00 Temperature 94.0 F L Pulse Rate 87 82 76 Respiratory 12 12 12 Rate Blood Pressure 73/45 67/41 59/36 O2 Sat by Pulse 97 95 95 Oximetry 12/05/21 12/05/21 12/05/21 04:16 04:23 06:04 Temperature 98.6 F Pulse Rate 96 96 Respiratory 18 16 Rate Blood Pressure 79/49 71/48 O2 Sat by Pulse 92 L 93 L Oximetry - Reevaluation(s) Reevaluation #1: 12/04/21 22:47 medical record is reviewe Reevaluation #2: 12/05/21 00:01 Patient does show some improvement blood pressure with significant IV resuscitation here in Reevaluation #3: 12/05/21 00:01 Patient will have potassium replaced Reevaluation #4: 12/05/21 00:02 Patient continues to remain altered - Consultations Consultation #1: Patient will be admitted to [facility] who agree to admit the patient Medical Decision Making - Medical Decision Making 51 female to the ED with overdose, patient remians unresponsive but protective of airway, patient BP remains low, will start on levophed, occasional improvement with fluid, patient will admit to ICU - Lab Data Result diagrams: 12/04/21 22:50 12/04/21 22:50 Lab Results 12/04/21 12/04/21 12/04/21 Range/Units 22:49 22:50 22:50 WBC 5.7 (3.8-10.6) k/uL RBC 3.71 L (3.80-5.40) m/uL Hgb 11.4 (11.4-16.0) gm/dL Hct 34.1 (34.0-46.0) % MCV 91.9 (80.0-100.0) fL MCH 30.8 (25.0-35.0) pg MCHC 33.5 (31.0-37.0) g/dL RDW 13.5 (11.5-15.5) % Plt Count 218 (150-450) k/uL MPV 8.6 Neutrophils % 69 % Lymphocytes % 22 % Monocytes % 5 % Eosinophils % 2 % Basophils % 0 % Neutrophils # 3.9 (1.3-7.7) k/uL Lymphocytes # 1.3 (1.0-4.8) k/uL Monocytes # 0.3 (0-1.0) k/uL Eosinophils # 0.1 (0-0.7) k/uL Basophils # 0.0 (0-0.2) k/uL PT 10.7 (9.0-12.0) sec INR 1.0 (<1.2) APTT 26.1 (22.0-30.0) sec VBG pH (7.31-7.41) VBG pCO2 (37-51) mmHg VBG HCO3 (24-28) mmol/L Sodium (137-145) mmol/L Potassium (3.5-5.1) mmol/L Chloride (98-107) mmol/L Carbon Dioxide (22-30) mmol/L Anion Gap mmol/L BUN (7-17) mg/dL Creatinine (0.52-1.04) mg/dL Est GFR (CKD-EPI)AfAm (>60 ml/min/1.73 sqM) Est GFR (CKD-EPI)NonAf (>60 ml/min/1.73 sqM) Glucose (74-99) mg/dL POC Glucose (mg/dL) 90 (75-99) mg/dL POC Glu Dupligraph Operator ID [place], Mathew Plasma Lactic Acid Mahamed (0.7-2.0) mmol/L Calcium (8.4-10.2) mg/dL Phosphorus (2.5-4.5) mg/dL Magnesium (1.6-2.3) mg/dL Total Bilirubin (0.2-1.3) mg/dL AST (14-36) U/L ALT (4-34) U/L Alkaline Phosphatase (38-126) U/L Ammonia (<30) umol/L Troponin I (0.000-0.034) ng/mL Total Protein (6.3-8.2) g/dL Albumin (3.5-5.0) g/dL TSH (0.465-4.680) mIU/L Urine Color Urine Appearance (Clear) Urine pH (5.0-8.0) Ur Specific [employer] (1.001-1.035) Urine Protein (Negative) Urine Glucose (UA) (Negative) Urine Ketones (Negative) Urine Blood (Negative) Urine Nitrite (Negative) Urine Bilirubin (Negative) Urine Urobilinogen (<2.0) mg/dL Ur Leukocyte Esterase (Negative) Urine RBC (0-5) /hpf Urine WBC (0-5) /hpf Ur Squamous Epith Cells (0-4) /hpf Hyaline Casts (0-2) /lpf Urine Mucus (None) /hpf Salicylates mg/dL Urine Opiates Screen (NotDetected) Ur Oxycodone Screen (NotDetected) Urine Methadone Screen (NotDetected) Ur Propoxyphene Screen (NotDetected) Acetaminophen ug/mL Ur Barbiturates Screen (NotDetected) Valproic Acid ug/mL U Tricyclic Antidepress (NotDetected) Ur Phencyclidine Scrn (NotDetected) Ur Amphetamines Screen (NotDetected) U Methamphetamines Scrn (NotDetected) U Benzodiazepines Scrn (NotDetected) Urine Cocaine Screen (NotDetected) U Marijuana (THC) Screen (NotDetected) Serum Alcohol mg/dL 12/04/21 12/04/21 12/04/21 Range/Units 22:50 22:50 22:50 WBC (3.8-10.6) k/uL RBC (3.80-5.40) m/uL Hgb (11.4-16.0) gm/dL Hct (34.0-46.0) % MCV (80.0-100.0) fL MCH (25.0-35.0) pg MCHC (31.0-37.0) g/dL RDW (11.5-15.5) % Plt Count (150-450) k/uL MPV Neutrophils % % Lymphocytes % % Monocytes % % Eosinophils % % Basophils % % Neutrophils # (1.3-7.7) k/uL Lymphocytes # (1.0-4.8) k/uL Monocytes # (0-1.0) k/uL Eosinophils # (0-0.7) k/uL Basophils # (0-0.2) k/uL PT (9.0-12.0) sec INR (<1.2) APTT (22.0-30.0) sec VBG pH (7.31-7.41) VBG pCO2 (37-51) mmHg VBG HCO3 (24-28) mmol/L Sodium 135 L (137-145) mmol/L Potassium 2.8 L (3.5-5.1) mmol/L Chloride 102 (98-107) mmol/L Carbon Dioxide 30 (22-30) mmol/L Anion Gap 3 mmol/L BUN 16 (7-17) mg/dL Creatinine 0.85 (0.52-1.04) mg/dL Est GFR (CKD-EPI)AfAm >90 (>60 ml/min/1.73 sqM) Est GFR (CKD-EPI)NonAf 81 (>60 ml/min/1.73 sqM) Glucose 82 (74-99) mg/dL POC Glucose (mg/dL) (75-99) mg/dL POC Glu Dupligraph Operator ID Plasma Lactic Acid Mahamed 1.0 (0.7-2.0) mmol/L Calcium 8.5 (8.4-10.2) mg/dL Phosphorus 3.5 (2.5-4.5) mg/dL Magnesium 2.0 (1.6-2.3) mg/dL Total Bilirubin 0.3 (0.2-1.3) mg/dL AST 19 (14-36) U/L ALT 13 (4-34) U/L Alkaline Phosphatase 58 (38-126) U/L Ammonia <9 (<30) umol/L Troponin I (0.000-0.034) ng/mL Total Protein 6.0 L (6.3-8.2) g/dL Albumin 3.5 (3.5-5.0) g/dL TSH (0.465-4.680) mIU/L Urine Color Yellow Urine Appearance Clear (Clear) Urine pH 5.5 (5.0-8.0) Ur Specific [employer] 1.020 (1.001-1.035) Urine Protein 1+ H (Negative) Urine Glucose (UA) Negative (Negative) Urine Ketones Negative (Negative) Urine Blood Negative (Negative) Urine Nitrite Negative (Negative) Urine Bilirubin Negative (Negative) Urine Urobilinogen 2.0 (<2.0) mg/dL Ur Leukocyte Esterase Negative (Negative) Urine RBC 1 (0-5) /hpf Urine WBC 1 (0-5) /hpf Ur Squamous Epith Cells 3 (0-4) /hpf Hyaline Casts 20 H (0-2) /lpf Urine Mucus Rare H (None) /hpf Salicylates mg/dL Urine Opiates Screen (NotDetected) Ur Oxycodone Screen (NotDetected) Urine Methadone Screen (NotDetected) Ur Propoxyphene Screen (NotDetected) Acetaminophen ug/mL Ur Barbiturates Screen (NotDetected) Valproic Acid <10.0 ug/mL U Tricyclic Antidepress (NotDetected) Ur Phencyclidine Scrn (NotDetected) Ur Amphetamines Screen (NotDetected) U Methamphetamines Scrn (NotDetected) U Benzodiazepines Scrn (NotDetected) Urine Cocaine Screen (NotDetected) U Marijuana (THC) Screen (NotDetected) Serum Alcohol mg/dL 12/04/21 12/04/21 12/04/21 Range/Units 22:50 22:50 22:53 WBC (3.8-10.6) k/uL RBC (3.80-5.40) m/uL Hgb (11.4-16.0) gm/dL Hct (34.0-46.0) % MCV (80.0-100.0) fL MCH (25.0-35.0) pg MCHC (31.0-37.0) g/dL RDW (11.5-15.5) % Plt Count (150-450) k/uL MPV Neutrophils % % Lymphocytes % % Monocytes % % Eosinophils % % Basophils % % Neutrophils # (1.3-7.7) k/uL Lymphocytes # (1.0-4.8) k/uL Monocytes # (0-1.0) k/uL Eosinophils # (0-0.7) k/uL Basophils # (0-0.2) k/uL PT (9.0-12.0) sec INR (<1.2) APTT (22.0-30.0) sec VBG pH 7.38 (7.31-7.41) VBG pCO2 48 (37-51) mmHg VBG HCO3 28 (24-28) mmol/L Sodium (137-145) mmol/L Potassium (3.5-5.1) mmol/L Chloride (98-107) mmol/L Carbon Dioxide (22-30) mmol/L Anion Gap mmol/L BUN (7-17) mg/dL Creatinine (0.52-1.04) mg/dL Est GFR (CKD-EPI)AfAm (>60 ml/min/1.73 sqM) Est GFR (CKD-EPI)NonAf (>60 ml/min/1.73 sqM) Glucose (74-99) mg/dL POC Glucose (mg/dL) (75-99) mg/dL POC Glu Dupligraph Operator ID Plasma Lactic Acid Mahamed (0.7-2.0) mmol/L Calcium (8.4-10.2) mg/dL Phosphorus (2.5-4.5) mg/dL Magnesium (1.6-2.3) mg/dL Total Bilirubin (0.2-1.3) mg/dL AST (14-36) U/L ALT (4-34) U/L Alkaline Phosphatase (38-126) U/L Ammonia (<30) umol/L Troponin I <0.012 (0.000-0.034) ng/mL Total Protein (6.3-8.2) g/dL Albumin (3.5-5.0) g/dL TSH (0.465-4.680) mIU/L Urine Color Urine Appearance (Clear) Urine pH (5.0-8.0) Ur Specific [employer] (1.001-1.035) Urine Protein (Negative) Urine Glucose (UA) (Negative) Urine Ketones (Negative) Urine Blood (Negative) Urine Nitrite (Negative) Urine Bilirubin (Negative) Urine Urobilinogen (<2.0) mg/dL Ur Leukocyte Esterase (Negative) Urine RBC (0-5) /hpf Urine WBC (0-5) /hpf Ur Squamous Epith Cells (0-4) /hpf Hyaline Casts (0-2) /lpf Urine Mucus (None) /hpf Salicylates mg/dL Urine Opiates Screen Not Detected (NotDetected) Ur Oxycodone Screen Not Detected (NotDetected) Urine Methadone Screen Not Detected (NotDetected) Ur Propoxyphene Screen Not Detected (NotDetected) Acetaminophen ug/mL Ur Barbiturates Screen Not Detected (NotDetected) Valproic Acid ug/mL U Tricyclic Antidepress Detected H (NotDetected) Ur Phencyclidine Scrn Not Detected (NotDetected) Ur Amphetamines Screen Detected H (NotDetected) U Methamphetamines Scrn Not Detected (NotDetected) U Benzodiazepines Scrn Not Detected (NotDetected) Urine Cocaine Screen Not Detected (NotDetected) U Marijuana (THC) Screen Detected H (NotDetected) Serum Alcohol mg/dL 12/05/21 Range/Units 00:00 WBC (3.8-10.6) k/uL RBC (3.80-5.40) m/uL Hgb (11.4-16.0) gm/dL Hct (34.0-46.0) % MCV (80.0-100.0) fL MCH (25.0-35.0) pg MCHC (31.0-37.0) g/dL RDW (11.5-15.5) % Plt Count (150-450) k/uL MPV Neutrophils % % Lymphocytes % % Monocytes % % Eosinophils % % Basophils % % Neutrophils # (1.3-7.7) k/uL Lymphocytes # (1.0-4.8) k/uL Monocytes # (0-1.0) k/uL Eosinophils # (0-0.7) k/uL Basophils # (0-0.2) k/uL PT (9.0-12.0) sec INR (<1.2) APTT (22.0-30.0) sec VBG pH (7.31-7.41) VBG pCO2 (37-51) mmHg VBG HCO3 (24-28) mmol/L Sodium (137-145) mmol/L Potassium (3.5-5.1) mmol/L Chloride (98-107) mmol/L Carbon Dioxide (22-30) mmol/L Anion Gap mmol/L BUN (7-17) mg/dL Creatinine (0.52-1.04) mg/dL Est GFR (CKD-EPI)AfAm (>60 ml/min/1.73 sqM) Est GFR (CKD-EPI)NonAf (>60 ml/min/1.73 sqM) Glucose (74-99) mg/dL POC Glucose (mg/dL) (75-99) mg/dL POC Glu Dupligraph Operator ID Plasma Lactic Acid Mahamed (0.7-2.0) mmol/L Calcium (8.4-10.2) mg/dL Phosphorus (2.5-4.5) mg/dL Magnesium (1.6-2.3) mg/dL Total Bilirubin (0.2-1.3) mg/dL AST (14-36) U/L ALT (4-34) U/L Alkaline Phosphatase (38-126) U/L Ammonia (<30) umol/L Troponin I (0.000-0.034) ng/mL Total Protein (6.3-8.2) g/dL Albumin (3.5-5.0) g/dL TSH 1.760 (0.465-4.680) mIU/L Urine Color Urine Appearance (Clear) Urine pH (5.0-8.0) Ur Specific [employer] (1.001-1.035) Urine Protein (Negative) Urine Glucose (UA) (Negative) Urine Ketones (Negative) Urine Blood (Negative) Urine Nitrite (Negative) Urine Bilirubin (Negative) Urine Urobilinogen (<2.0) mg/dL Ur Leukocyte Esterase (Negative) Urine RBC (0-5) /hpf Urine WBC (0-5) /hpf Ur Squamous Epith Cells (0-4) /hpf Hyaline Casts (0-2) /lpf Urine Mucus (None) /hpf Salicylates <1.0 mg/dL Urine Opiates Screen (NotDetected) Ur Oxycodone Screen (NotDetected) Urine Methadone Screen (NotDetected) Ur Propoxyphene Screen (NotDetected) Acetaminophen <10.0 ug/mL Ur Barbiturates Screen (NotDetected) Valproic Acid ug/mL U Tricyclic Antidepress (NotDetected) Ur Phencyclidine Scrn (NotDetected) Ur Amphetamines Screen (NotDetected) U Methamphetamines Scrn (NotDetected) U Benzodiazepines Scrn (NotDetected) Urine Cocaine Screen (NotDetected) U Marijuana (THC) Screen (NotDetected) Serum Alcohol <10 mg/dL - EKG Data -: EKG Interpreted by Me (EKG shows sinus rhythm 83 NC 158 QRS 411 QTc 440) - Radiology Data Radiology results: report reviewed (CT brain Cspine negative for acute disease), image reviewed Critical Care Time Critical Care Time: Yes Total Critical Care Time: 31 Disposition Clinical Impression: Weakness, Drug overdose, Dehydration, Altered mental status, Delirium due to general medical condition, Hypotension, Hypokalemia Disposition: ADMITTED IP TO THIS [facility] Condition: Serious Is patient prescribed a controlled substance at d/c from ED?: No Referrals: None,Stated [Primary Care Provider] - 1-2 days
[2021-12-04 22:51] LABS: Glucose,Whole Blood 90 mg/dL (75-99)
[2021-12-04] MEDS: NALOXONE 0.4 MG/ML 10 ML VIAL IVP STA ×2 (22:55→23:03)
[2021-12-04 23:07] LABS: Basophils % (A) 0 %; Eosinophils # (A) 0.1 k/uL (0-0.7); Eosinophils % (A) 2 %; HCT 34.1 % (34.0-46.0); HGB 11.4 gm/dL (11.4-16.0); Lymphocytes # (A) 1.3 k/uL (1.0-4.8); Lymphocytes % (A) 22 %; MCH 30.8 pg (25.0-35.0); MCHC 33.5 g/dL (31.0-37.0); MCV 91.9 fL (80.0-100.0); Mean Platelet Volume 8.6; Monocytes # (A) 0.3 k/uL (0-1.0); Monocytes % (A) 5 %; Neutrophils # (A) 3.9 k/uL (1.3-7.7); Neutrophils % (A) 69 %; Platelet Count 218 k/uL (150-450); RBC 3.71 m/uL (3.80-5.40); RDW 13.5 % (11.5-15.5); WBC 5.7 k/uL (3.8-10.6)
[2021-12-04 23:08] LABS: VBG PH 7.38 (7.31-7.41)
[2021-12-04 23:15] LABS: Partial Thromboplastin Time 26.1 sec (22.0-30.0); Prothrombin Time 10.7 sec (9.0-12.0)
[2021-12-04 23:20] LABS: ALT 13 U/L (4-34); AST 19 U/L (14-36); African American GFR (CKD) >90 (>60 ml/min/1.73 sqM); Albumin 3.5 g/dL (3.5-5.0); Alkaline Phosphatase 58 U/L (38-126); Anion Gap 3 mmol/L; Blood Urea Nitrogen 16 mg/dL (7-17); Calcium 8.5 mg/dL (8.4-10.2); Carbon Dioxide 30 mmol/L (22-30); Chloride 102 mmol/L (98-107); Glucose 82 mg/dL (74-99); Non-African American GFR(CKD) 81 (>60 ml/min/1.73 sqM); Phosphorus 3.5 mg/dL (2.5-4.5); Potassium 2.8 mmol/L (3.5-5.1); Sodium 135 mmol/L (137-145); Total Bilirubin 0.3 mg/dL (0.2-1.3)
[2021-12-04 23:25] LABS: Valproic Acid (Depakene) <10.0 ug/mL
--- NOTE | 2021-12-04 23:51 | XR ---
EXAMINATION TYPE: XR chest 1V portable DATE OF EXAM: 12/04/2021 COMPARISON: 09/06/2021 HISTORY: Altered mental status. TECHNIQUE: Single view FINDINGS: There is no heart failure nor confluent pneumonic infiltrate. Costophrenic angles are clear . There are chest leads. There are no hilar masses. Bony thorax is intact. IMPRESSION: No active cardia pulmonary disease. Normal heart. There is essentially complete clearing of atelectasis and infiltrate left lung base compared to old exam.
--- NOTE | 2021-12-04 23:58 | CT ---
EXAMINATION TYPE: CT brain cspine wo con DATE OF EXAM: 12/04/2021 COMPARISON: None HISTORY: possible OD CT DLP: 1348.7 mGycm Automated exposure control for dose reduction was used. Images of the brain and cervical spine obtained without contrast. Ventricles have fairly normal size. There is no mass effect or midline shift. No sign of intracranial hemorrhage. Calvarium is intact. There is normal aeration of the mastoid sinuses. The temporal shahnaz bular joints are intact. The cervical vertebra show fairly normal alignment. There is some degenerative disc space narrowing a t C5-C6 with spurring of the endplates. There is endplate spur formation and mild encroachment on the spinal canal at C5-6. There is calcified posterior C5-6 cervical disc herniation. The spinal canal a ppears to be narrowed to 6 mm. No evidence of focal bone destruction. IMPRESSION: Negative CT scan of the brain. Spondylosis at C5-6. Calcified posterior disc herniation with 6 mm spinal stenosis at C5-6. No cervic al spine fracture.
[2021-12-05] MEDS ORDERED: methylPREDNISolone SOD SUCCI 125 MG/2 ML VIAL IV STA (00:05)
[2021-12-05] MEDS ORDERED: LEVOTHYROXINE IVP 100 MCG/5 ML VIAL IV STA ×2 (00:05→01:50)
[2021-12-05 00:13] LABS: Appearance,Urine Clear (Clear); Bilirubin,Urine Negative (Negative); Blood,Urine Negative (Negative); Color,Urine Yellow; Glucose,Urine (UA) Negative (Negative); Hyaline Casts,Urine 20 /lpf (0-2); Ketones,Urine Negative (Negative); Leukocyte Esterase,Urine Negative (Negative); Mucus,Urine Rare /hpf; Nitrite,Urine Negative (Negative); PH, Urine 5.5 (5.0-8.0); Protein,Urine 1+ (Negative); RBC,Urine 1 /hpf (0-5); Squamous Epithelial Cell,Urine 3 /hpf (0-4); WBC,Urine 1 /hpf (0-5)
[2021-12-05] MEDS: POTASSIUM CHLORIDE 20 MEQ in WATER FOR INJECTION 1 100ML.BAG IVPB SCH ×4 (00:20→07:04)
[2021-12-05 00:57] LABS: Amphetamine Screen,Urine Detected (NotDetected); Barbiturate Screen,Urine Not Detected (NotDetected); Benzodiazepines Screen,Urine Not Detected (NotDetected); Cocaine Screen,Urine Not Detected (NotDetected); Methadone Screen, Urine Not Detected (NotDetected); Opiate Screen,Urine Not Detected (NotDetected); Oxycodone Screen, Urine Not Detected (NotDetected); Phencyclidine Screen,Urine Not Detected (NotDetected); Tricyclic Antidepressant,Urine Detected (NotDetected); Urn Cannabinoid Scrn Detected (NotDetected)
[2021-12-05 01:37] LABS: Acetaminophen <10.0 ug/mL; Alcohol <10 mg/dL; Salicylate <1.0 mg/dL
[2021-12-05] MEDS ORDERED: SODIUM CHLORIDE 0.9% 1,000 ML IV STA (01:50)
[2021-12-05] MEDS ORDERED: NOREPINEPHRINE 4 MG in SODIUM CHLORIDE 0.9% 250 ML IV ONE (06:11)
[2021-12-05] MEDS ORDERED: NALOXONE 0.4 MG/ML 1 ML VIAL IV PRN (06:16)
--- NOTE | 2021-12-05 07:38 | XR ---
EXAMINATION TYPE: XR chest 1V portable DATE OF EXAM: 12/05/2021 Comparison: 12/04/2021 Clinical History: 51-year-old female line placement Findings: Patient is rotated towards the right likely accounting for the increased paratracheal and left hilar density. Attention on follow-up. Right IJ CVC tip within the right atrium. Heart borderline in size. Interstitial/vascular prominence is similar. No consolidation or pleural effusion. Impression: 1. Rightward patient rotation likely accounts for the paratracheal and left hilar density. Attention on follow-up. If there is any persisting excessive hilar or paratracheal density, CT may be indicated . 2. Right IJ CVC tip in the right atrium. 3. Borderline cardiomegaly. Possible mild pulmonary vascular congestion. Clinically correlate.
[2021-12-05 07:55] LABS: Glucose,Whole Blood 144 mg/dL (75-99)
[2021-12-05] MEDS: DEXTROSE 5%-0.45% NACL 1,000 ML IV SCH ×2 (08:24→19:49)
[2021-12-05 10:16] LABS: ABG HCO3 21 mmol/L (21-25); ABG Oxygen Saturation 90.9 % (94-97); ABG PCO2 38 mmHg (35-45); ABG PH 7.35 (7.35-7.45); ABG TCO2 22 mmol/L (19-24); Allen Test Performed? Yes
[2021-12-05 10:18] LABS: ABG PO2 59 mmHg (83-108)
[2021-12-05] MEDS: ENOXAPARIN 40 MG/0.4 ML SYRINGE SQ SCH (10:43)
[2021-12-05] MEDS: IPRATROPIUM-ALBUTEROL 3 ML NEB INHALATION SCH ×3 (11:36→19:59)
[2021-12-05] MEDS: DEXTROSE 5% IN WATER 1,000 ML with SODIUM BICARB (1 MEQ/ML) 150 ML IV SCH (11:36)
--- NOTE | 2021-12-05 12:51 | P.CNPUL ---
History of Present Illness Consult date: 12/05/21 Requesting physician: Cristina Cash Reason for consult: other (Multiple drugs overdose, ICU management) Chief complaint: Altered mental status History of present illness: This is a 51-year-old female with history of multiple medical problems, patient has bipolar disorder, hypertension, COPD, hypothyroidism, depression, previous history of suicidal attempt back on 09/06/21. Patient was in the hospital at the time and she was seen by psychiatry on consultation. At that time the patient had intentional overdose and she tested positive for try cyclic's, amphetamine, and marijuana. Last night, the patient came into the ER upon police requests . they were called to the house due to domestic dispute. Patient went at the time to the bathroom and came out and became very confused, speech was noted to be slurred, and she became unresponsive. Not much history could be obtained from the patient as he seems to be quite obtunded weak, she arouses briefly but she goes back to sleep and snoring. Patient does arouse with deep painful stimuli, and she seems to be able to protect her airways. She does have a good gag reflex at any rate patient was seen in the ER, and her drug screen came back positive for try cyclic, amphetamine, and positive for marijuana again. Patient did receive Narcan she also received dextrose in the ER, and not much of a change was noted. Patient had mostly dilated pupils, she is on IV fluid at 80 mL/h, on oxygen at 3 L/m, she is also on norepinephrine at 0.1 mcg/kg/m. Patient was noted to have labile blood pressure, received 2 L of fluids in the ER, her blood pressure did not improve much, hence norepinephrine was started via central line that was placed by the ER physician/right IJ central line. I saw the patient is ICU, considering that the patient had positive tricyclic and her drug screen, and considering the patient is relatively acidotic/metab olically, I started the patient on sodium bicarb drip. EKG in the ER showed mostly sinus rhythm, there was intraventricular conduction delay and nonspecific T-wave abnormality. She was also noted to have occasional premature ventricular complexes Review of Systems ROS unobtainable: due to mental status Past Medical History Past Medical History: Asthma, Cancer, COPD, Hypertension, Musculoskeletal Disorder, Thyroid Disorder Additional Past Medical History / Comment(s): herniated disc, had surg. 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 cervical cancer History of Any Multi-Drug Resistant Organisms: None Reported Past Surgical History: Back Surgery, Hysterectomy, Tubal Ligation Additional Past Surgical History / Comment(s): lipoma removal, back surg. x2-2nd was fusion Past Anesthesia/Blood Transfusion Reactions: No Reported Reaction Past Psychological History: ADD/ADHD, Bipolar, Depression Smoking Status: Current every day smoker Past Alcohol Use History: None Reported Additional Past Alcohol Use History / Comment(s): almost 1ppd Past Drug Use History: None Reported Additional Drug Use History / Comment(s): daily use Medications and Allergies Home Medications Medication Instructions Recorded Confirmed Type HYDROcodone/APAP 10-325MG [[place] 2 tab PO Q6HR PRN 05/20/21 12/05/21 History 10-325] Cyclobenzaprine [Flexeril] 10 mg PO TID PRN 09/06/21 12/05/21 History Dexlansoprazole [Dexilant] 60 mg PO DAILY 09/06/21 12/05/21 History Fluticasone Nasal [place] [Flonase 2 spray EA NOSTRIL DAILY 09/06/21 12/05/21 His tory Nasal [place]] Gabapentin [Neurontin] 600 mg PO TID 09/06/21 12/05/21 History Pramipexole [Mirapex] 1 mg PO HS 09/06/21 12/05/21 History Triamterene/Hydrochlorothiazid 1 cap PO DAILY 09/06/21 12/05/21 History [Dyazide 37.5-25 Capsule] Albuterol Sulfate [Albuterol 1 - 2 puff PO RT-Q4H PRN 12/05/21 12/05/21 History Sulfate Hfa] Cariprazine HCl [Vraylar] 3 mg PO QAM 12/05/21 12/05/21 History DULoxetine HCL [Cymbalta] 60 mg PO DAILY 12/05/21 12/05/21 History Dextroamphetamine/Amphetamine 20 mg PO QAM 12/05/21 12/05/21 History [Adderall Xr] Famotidine [Pepcid] 20 mg PO BID 12/05/21 12/05/21 History amLODIPine [Norvasc] 5 mg PO DAILY 12/05/21 12/05/21 History clonazePAM [KlonoPIN] 1 mg PO BID PRN 12/05/21 12/05/21 History lamoTRIgine [LaMICtal] 50 mg PO QAM 12/05/21 12/05/21 History Allergies Allergy/AdvReac Type Severity Reaction Status Date / Time alprazolam [From Xanax] Allergy Unknown Verified 09/06/21 11:25 codeine Allergy Dyspnea Verified 09/06/21 11:25 Latex, Natural Rubber Allergy Rash/Hives Verified 09/06/21 11:25 pentazocine lactate Allergy Dyspnea Verified 09/06/21 11:25 [From Talwin] morphine AdvReac Itching Verified 09/06/21 11:25 Physical Exam Vitals: Vital Signs Temp Pulse Resp BP Pulse Ox 12/05/21 11:46 98 12/05/21 11:37 97 12/05/21 11:30 99 13 99 12/05/21 11:15 101 H 13 99 12/05/21 11:00 101 H 14 87/52 99 12/05/21 10:45 96 12 92/52 100 12/05/21 10:30 96 9 L 92/52 100 12/05/21 10:15 100 16 92/55 95 12/05/21 10:00 97 13 82/55 95 12/05/21 09:45 100 14 96/55 94 L 12/05/21 09:30 100 13 94/60 94 L 12/05/21 09:15 101 H 17 98/52 90 L 12/05/21 09:00 96 13 98/52 93 L 12/05/21 08:45 96 14 90/53 92 L 12/05/21 08:30 94 15 83/48 92 L 12/05/21 08:15 92 14 85/49 92 L 12/05/21 08:00 98.1 F 92 11 L 84/50 93 L 12/05/21 07:24 93 16 83/50 93 L 12/05/21 06:04 96 16 71/48 93 L 12/05/21 04:23 98.6 F 12/05/21 04:16 96 18 79/49 92 L 12/05/21 01:00 76 12 59/36 95 12/05/21 00:45 82 12 67/41 95 12/05/21 00:30 94.0 F L 87 12 73/45 97 12/05/21 00:15 71 12 53/33 97 12/05/21 00:00 71 12 55/37 97 12/04/21 23:45 71 12 56/35 97 12/04/21 23:30 72 12 60/38 97 12/04/21 23:15 96.8 F L 71 12 64/38 97 12/04/21 23:00 73 12 59/38 97 12/04/21 22:55 12 12/04/21 22:45 70 12 62/41 97 12/04/21 22:40 78 14 67/38 96 Intake and Output 12/04/21 12/05/21 12/05/21 22:59 06:59 14:59 Intake Total 1259.834 Output Total 150 Balance 1109.834 Intake: IV 1239 Dextrose 5%-0.45% NaCl 1, 240 000 ml @ 80 mls/hr IV . [id number] [facility] Rx#:[id number] Sodium Chloride 0.9% 1, 999 000 ml @ 999 mls/hr IV . Q1H1M [facility] Rx#:[id number] Intake, IV Titration 20.834 Amount Norepinephrine 4 mg In 20.834 Sodium Chloride 0.9% 250 ml @ 0.05 MCG/KG/MIN 15. 061 mls/hr IV .[id number] [facility] Rx#:[id number] Output: Urine 150 Other: Voiding Method Indwelling Catheter Weight 79.061 kg ABP, PAP, CO, CI - Last 8 Hours Arterial Blood Pressure 90/45 Arterial Blood Pressure 103/54 General appearance: Patient is obtunded, lethargic, arousable only with deep painful stimuli, but she tends to fall asleep easily on her own if left alone. Head exam: Atraumatic, normocephalic Eye exam: Pupils are dilated, reactive, to light ENT exam: Dry mucous membranes, throat is clear. Neck exam: Supple no neck masses no JVD no stridor. Respiratory exam: Diminished breath sound bilaterally no rhonchi or wheezes. Cardiovascular Exam: Distant S1 and S2, no S3 gallop, no murmur. GI/Abdominal exam: Obese soft nontender, no guarding, no rebound Extremities exam: No clubbing edema or cyanosis. Neurological exam: Obtunded, lethargic, arousable only with deep painful stimuli, she has a good gag reflex Psychiatric exam: Cannot assess, patient has a flat affect. Skin exam: Multiple tattoos all over, no rashes otherwise. Results - Laboratory Findings CBC and BMP: 12/04/21 22:50 12/05/21 10:43 ABG ABG pH 7.35 (7.35-7.45) 12/05/21 10:14 ABG pCO2 38 mmHg (35-45) 12/05/21 10:14 ABG pO2 59 mmHg (83-108) L* 12/05/21 10:14 ABG O2 Saturation 90.9 % (94-97) L 12/05/21 10:14 PT/INR, D-dimer PT 10.7 sec (9.0-12.0) 12/04/21 22:50 INR 1.0 (<1.2) 12/04/21 22:50 Abnormal lab findings: Abnormal Labs 12/04/21 12/04/21 12/04/21 22:50 22:50 22:50 RBC 3.71 L ABG pO2 ABG O2 Saturation Sodium 135 L Potassium 2.8 L POC Glucose (mg/dL) Total Protein 6.0 L Urine Protein 1+ H Hyaline Casts 20 H Urine Mucus Rare H U Tricyclic Antidepress Ur Amphetamines Screen U Marijuana (THC) Screen 12/04/21 12/05/21 12/05/21 22:50 07:53 10:14 RBC ABG pO2 59 L* ABG O2 Saturation 90.9 L Sodium Potassium POC Glucose (mg/dL) 144 H Total Protein Urine Protein Hyaline Casts Urine Mucus U Tricyclic Antidepress Detected H Ur Amphetamines Screen Detected H U Marijuana (THC) Screen Detected H - Diagnostic Findings Chest x-ray: image reviewed (No evidence of active disease. Minimal atelectasis at the bases.) Assessment and Plan Assessment: Impression: Altered mental status secondary to multiple drugs overdose, strongly suspect mostly tricyclics overdose, and possibly amphetamine overdose Hypotension secondary to above History of depression and history of suicidal attempts in the past. Previous history of Depakote overdose Benign essential hypertension History of hypothyroidism History of underlying COPD Bipolar disorder Acute hypoxic respiratory failure secondary to drug overdose, and underlying COPD as well as bibasilar atelectasis is noted on chest x-ray. Recommendation: Continue oxygen and titrate accordingly Start patient on updrafts that DuoNeb. GI and DVT prophylaxis. Continue to monitor the patient in the ICU Continue IV fluids and she will be given more fluid boluses and will continue norepinephrine in the meantime. Start patient on sodium bicarb drip. Continue to monitor the patient hemodynamically, and a right radial arterial li ne was placed for that purpose. Continue to monitor electrolytes. Monitor neurological status on hourly basis Continue to monitor pulmonary status, at this point I don't see need to intubate patient however if the patient's condition deteriorates, may require intubation mechanical ventilation. Will eventually need psychiatric evaluation and consultation on this patient. This will likely be done tomorrow. In the meantime continue suicidal precautions. Prognosis is guarded, we'll continue to follow. Time with Patient: Greater than 30
--- NOTE | 2021-12-05 13:44 | P.CN ---
Psychiatric Consult - . Consult date: 12/05/21 Consult:: Clinical Problems: Suicide attempt by multiple drug overdose, history of attempted suicide by overdose, history of a bipolar illness Interim history: I reviewed the medical record and spoke with the patient's nurse on the intensive care unit. The patient was unresponsive. According to the information in the medical record the EMS brought her to the ER at the request of the police who were called to her home due to a domestic dispute. Apparently the patient went to bathroom and came out and became very confused and her speech was slurred. She denied became unresponsive. Her UDS was positive for tricyclic antidepressants, amphetamines and marijuana. Her serum alcohol level was less than 10. The acetaminophen level was less than 10 and salicylates was less than 1. She was admitted to medicine service in August 2021 with lethargy following a overdose of prescription medications. She was evaluated by the engagement quality consultant psychiatrist who determined that the overdose was unintentional. The psychiatrist did not recommend transfer to the psychiatric unit. Mental status exam: She presented disheveled appearing female laying comfortably in bed. She didn't respond to verbal or tactile stimuli. Her respiratory rate was 13 and her breathing was unlabored. Assessment: Suicide attempt by overdose by prescription; her outpatient psychotropic medications including Lamictal, clonazepam, adderal XR, Neurontin a nd Cymbalta, Flexeril or Vrylar Plan: Due to her current mental status she is not appropriate for transfer to the mental health unit. She should remain on suicide precautions. Hold her psychotropic medications. Psychiatry will follow. 12/05/21 13:34
--- NOTE | 2021-12-05 14:43 | OP ---
OPERATIVE REPORT OPERATIVE REPORT: Placement of right radial arterial line. PREOPERATIVE DIAGNOSIS: Multiple drug overdose and hypotension. POSTOPERATIVE DIAGNOSIS: Multiple drug overdose and hypotension. ANESTHESIA USED: None deployed. PROCEDURE DESCRIPTION: The right wrist was prepared in a sterile fashion and drapes were applied. The right radial artery was palpated, cannulated, and a guidewire was placed. A Cook's catheter was inserted over the guidewire, and the guidewire was removed. Good blood flow and good waveform were noted. No complications. Line was secured using 3.0 silk sutures. MMODL / IJN: [id number] /
--- NOTE | 2021-12-05 14:44 | P.HPIM ---
History of Present Illness H&P Date: 12/05/21 Chief Complaint: Altered mental status Patient is a 51-year-old female with a known history of asthma/COPD, hypertension, hypothyroidism, herniated disc, depression/bipolar disorder and other medical problems and previous history of overdose while brought to the ER due to altered mental status. Patient was brought to the hospital by police due to domestic dispute and the patient went to the bathroom and came out and started having slurred speech and was not speaking well EMS was called and patient was brought to the hospital. Otherwise patient was noted any symptoms prior to the episode. No nausea vomiting abdominal pain or diarrhea. No recent illnesses. Patient is currently admitted to the MICU. Currently requiring Levophed due to hypotension. UDS is positive for tree tricyclic antidepressants, amphetamines and marijuana. Chest x-ray showed no active cardiopulmonary disease. Normal heart. There is essentially complete clearing of the atelectasis and infiltrate left lung base compared to old exam. CT head and cervical spine showed negative CT scan of the brain. Spondylosis at C5-C6. Calcified posterior disc herniation with 6 mm spinal stenosis at C5-C6. No cervical spine fracture. EKG showed sinus rhythm with occasional ventricular premature complexes. Other laboratory data showed WBC 5.7 hemoglobin 11.4 platelets 218 INR 1.0 ABG showed pH 7.35 PCO2 38 and PO2 59 Sodium 135 potassium 2.8 chloride 102 BUN 16 creatinine 0.85 liver enzymes are not elevated. TSH 1.7 within normal limits. Urinalysis is negative for infection. Review of Systems Review of systems could not be obtained from the patient. Past Medical History Past Medical History: Asthma, Cancer, COPD, Hypertension, Musculoskeletal Disorder, Thyroid Disorder Additional Past Medical History / Comment(s): herniated disc, had surg. 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 cervical cancer History of Any Multi-Drug Resistant Organisms: None Reported Past Surgical History: Back Surgery, Hysterectomy, Tubal Ligation Additional Past Surgical History / Comment(s): lipoma removal, back surg. x2-2nd was fusion Past Anesthesia/Blood Transfusion Reactions: No Reported Reaction Past Psychological History: ADD/ADHD, Bipolar, Depression Smoking Status: Current every day smoker Past Alcohol Use History: None Reported Additional Past Alcohol Use History / Comment(s): almost 1ppd Past Drug Use History: None Reported Additional Drug Use History / Comment(s): daily use Medications and Allergies Home Medications Medication Instructions Recorded Confirmed Type HYDROcodone/APAP 10-325MG [[place] 2 tab PO Q6HR PRN 05/20/21 12/05/21 History 10-325] Cyclobenzaprine [Flexeril] 10 mg PO TID PRN 09/06/21 12/05/21 History Dexlansoprazole [Dexilant] 60 mg PO DAILY 09/06/21 12/05/21 History Fluticasone Nasal [place] [Flonase 2 spray EA NOSTRIL DAILY 09/06/21 12/05/21 History Nasal [place]] Gabapentin [Neurontin] 600 mg PO TID 09/06/21 12/05/21 History Pramipexole [Mirapex] 1 mg PO HS 09/06/21 12/05/21 History Triamterene/Hydrochlorothiazid 1 cap PO DAILY 09/06/21 12/05/21 History [Dyazide 37.5-25 Capsule] Albuterol Sulfate [Albuterol 1 - 2 puff PO RT-Q4H PRN 12/05/21 12/05/21 History Sulfate Hfa] Cariprazine HCl [Vraylar] 3 mg PO QAM 12/05/21 12/05/21 History DULoxetine HCL [Cymbalta] 60 mg PO DAILY 12/05/21 12/05/21 History Dextroamphetamine/Amphetamine 20 mg PO QAM 12/05/21 12/05/21 History [Adderall Xr] Famotidine [Pepcid] 20 mg PO BID 12/05/21 12/05/21 History amLODIPine [Norvasc] 5 mg PO DAILY 12/05/21 12/05/21 History clonazePAM [KlonoPIN] 1 mg PO BID PRN 12/05/21 12/05/21 History lamoTRIgine [LaMICtal] 50 mg PO QAM 12/05/21 12/05/21 History Allergies Allergy/AdvReac Type Severity Reaction Status Date / Time alprazolam [From Xanax] Allergy Unknown Verified 09/06/21 11:25 codeine Allergy Dyspnea Verified 09/06/21 11:25 Latex, Natural Rubber Allergy Rash/Hives Verified 09/06/21 11:25 pentazocine lactate Allergy Dyspnea Verified 09/06/21 11:25 [From Talwin] morphine AdvReac Itching Verified 09/06/21 11:25 Physical Exam Vitals: Vital Signs Temp Pulse Resp BP Pulse Ox 12/05/21 09:30 100 13 94/60 94 L 12/05/21 09:15 101 H 17 98/52 90 L 12/05/21 09:00 96 13 98/52 93 L 12/05/21 08:45 96 14 90/53 92 L 12/05/21 08:30 94 15 83/48 92 L 12/05/21 08:15 92 14 85/49 92 L 12/05/21 08:00 98.1 F 92 11 L 84/50 93 L 12/05/21 07:24 93 16 83/50 93 L 12/05/21 06:04 96 16 71/48 93 L 12/05/21 04:23 98.6 F 12/05/21 04:16 96 18 79/49 92 L 12/05/21 01:00 76 12 59/36 95 12/05/21 00:45 82 12 67/41 95 12/05/21 00:30 94.0 F L 87 12 73/45 97 12/05/21 00:15 71 12 53/33 97 12/05/21 00:00 71 12 55/37 97 12/04/21 23:45 71 12 56/35 97 12/04/21 23:30 72 12 60/38 97 12/04/21 23:15 96.8 F L 71 12 64/38 97 12/04/21 23:00 73 12 59/38 97 12/04/21 22:55 12 12/04/21 22:45 70 12 62/41 97 12/04/21 22:40 78 14 67/38 96 Intake and Output 12/04/21 12/05/21 12/05/21 22:59 06:59 14:59 Intake Total 180.834 Output Total 125 Balance 55.834 Intake: IV 160 Dextrose 5%-0.45% NaCl 1, 160 000 ml @ 80 mls/hr IV . [id number] [facility] Rx#:[id number] Intake, IV Titration 20.834 Amount Norepinephrine 4 mg In 20.834 Sodium Chloride 0.9% 250 ml @ 0.05 MCG/KG/MIN 15. 061 mls/hr IV .[id number] [facility] Rx#:[id number] Output: Urine 125 Other: Voiding Method Indwelling Catheter Weight 79.061 kg PHYSICAL EXAMINATION: Patient is lying in the bed comfortably, lethargic and drowsy and could not communicate.. HEENT: Normocephalic. Neck is supple. Pupils reactive. Nostrils clear. Oral cavity is moist. Neck reveals no JVD, carotid bruits, or thyromegaly. CHEST EXAMINATION: Trachea is central. Symmetrical expansion. Bibasilar diminished sounds. Lung [place] clear to auscultation and percussion. CARDIAC: Normal S1, S2 with no gallops. No murmurs ABDOMEN: Soft. Bowel sounds normal. No organomegaly. No abdominal bruits. Extremities: reveal no edema. No clubbing or cyanosis Neurologically patient is lethargic and obtunded. No gross focal deficits noted Skin: No rash or skin lesions. Psychiatric: Could not be assessed at this time. Musculoskeletal: No joint swelling or deformity. Results CBC & Chem 7: 12/04/21 22:50 12/05/21 10:43 Labs: Abnormal Lab Results - Last 24 Hours (Table) 12/04/21 12/04/21 12/04/21 Range/Units 22:50 22:50 22:50 RBC 3.71 L (3.80-5.40) m/uL ABG pO2 (83-108) mmHg ABG O2 Saturation (94-97) % Sodium 135 L (137-145) mmol/L Potassium 2.8 L (3.5-5.1) mmol/L POC Glucose (mg/dL) (75-99) mg/dL Total Protein 6.0 L (6.3-8.2) g/dL Urine Protein 1+ H (Negative) Hyaline Casts 20 H (0-2) /lpf Urine Mucus Rare H (None) /hpf U Tricyclic Antidepress (NotDetected) Ur Amphetamines Screen (NotDetected) U Marijuana (THC) Screen (NotDetected) 12/04/21 12/05/21 12/05/21 Range/Units 22:50 07:53 10:14 RBC (3.80-5.40) m/uL ABG pO2 59 L* (83-108) mmHg ABG O2 Saturation 90.9 L (94-97) % Sodium (137-145) mmol/L Potassium (3.5-5.1) mmol/L POC Glucose (mg/dL) 144 H (75-99) mg/dL Total Protein (6.3-8.2) g/dL Urine Protein (Negative) Hyaline Casts (0-2) /lpf Urine Mucus (None) /hpf U Tricyclic Antidepress Detected H (NotDetected) Ur Amphetamines Screen Detected H (NotDetected) U Marijuana (THC) Screen Detected H (NotDetected) Assessment and Plan Assessment: Acute metabolic and toxic encephalopathy due to drug overdose. UDS positive for marijuana, TCA'S and amphetamines. Acute hypoxic respiratory failure secondary to drug overdose Hypotension requiring pressor support. Rule out infection. Severe hypokalemia Depression with suicide attempt and prior history of similar episode. COPD not in exacerbation Hypothyroidism Hypertension Osteoarthritis Bipolar disorder and depression DVT prophylaxis Plan: Patient will be continued on IV hydration and oxygen supplementation. Currently requiring pressor support with Levophed. Replace electrolytes and monitor closely. Continue with supportive care. Pulmonary is on board. Continue with GI and DVT prophylaxis. Psychiatry was consulted for evaluation. Time with Patient: Greater than 30
[2021-12-05] MEDS: PANTOPRAZOLE 40 MG/10 ML VIAL IVP SCH (15:48)
[2021-12-05] MEDS: NOREPINEPHRINE 32 MG in SODIUM CHLORIDE 0.9% 218 ML IV SCH (15:49)
[2021-12-06] MEDS ORDERED: propofoL 100 ML IV ONE (00:46)
--- NOTE | 2021-12-06 01:34 | XR ---
EXAMINATION TYPE: XR chest 1V portable DATE OF EXAM: 12/06/2021 COMPARISON: Yesterday HISTORY: Tube placement TECHNIQUE: Single view FINDINGS: Endotracheal tube is 3 cm from the mason. There is right jugular catheter with tip in the right atrium. There is nasogastric tube in the stomach. There is right upper lobe and right lower lob e patchy airspace pneumonia. There is also some pneumonic infiltrate left lower lobe. There is probab ly a hiatal hernia. There are chest leads. IMPRESSION: Bilateral pneumonia increased compared to exam yesterday. No heart failure.
[2021-12-06] MEDS: DEXTROSE 5% IN WATER 1,000 ML with SODIUM BICARB (1 MEQ/ML) 150 ML IV SCH (02:30)
[2021-12-06] MEDS ORDERED: MIDAZOLAM HCL 50 MG in SODIUM CHLORIDE 0.9% 40 ML IV SCH (03:30)
[2021-12-06 05:44] LABS: ABG Base Excess 4.2 mmol/L; ABG HCO3 28 mmol/L (21-25); ABG Oxygen Saturation 99.6 % (94-97); ABG PCO2 40 mmHg (35-45); ABG PH 7.46 (7.35-7.45); ABG PO2 225 mmHg (83-108); ABG TCO2 29 mmol/L (19-24)
[2021-12-06 05:47] LABS: Allen Test Performed? No
[2021-12-06 06:51] LABS: HCT 37.2 % (34.0-46.0); HGB 12.4 gm/dL (11.4-16.0); MCHC 33.3 g/dL (31.0-37.0); MCV 93.3 fL (80.0-100.0); Mean Platelet Volume 8.3; Platelet Count 235 k/uL (150-450); RBC 3.98 m/uL (3.80-5.40); RDW 13.8 % (11.5-15.5); WBC 12.7 k/uL (3.8-10.6)
[2021-12-06 07:01] LABS: ALT 14 U/L (4-34); AST 22 U/L (14-36); African American GFR (CKD) >90 (>60 ml/min/1.73 sqM); Alkaline Phosphatase 50 U/L (38-126); Anion Gap 5 mmol/L; Blood Urea Nitrogen 13 mg/dL (7-17); Calcium 7.5 mg/dL (8.4-10.2); Carbon Dioxide 27 mmol/L (22-30); Chloride 104 mmol/L (98-107); Glucose 137 mg/dL (74-99); Magnesium 1.7 mg/dL (1.6-2.3); Non-African American GFR(CKD) >90 (>60 ml/min/1.73 sqM); Phosphorus 2.4 mg/dL (2.5-4.5); Sodium 136 mmol/L (137-145); Total Bilirubin 0.5 mg/dL (0.2-1.3); Total Protein 5.5 g/dL (6.3-8.2)
[2021-12-06 07:21] LABS: Band Neutrophils % 9 %; Lymphocytes # (M) 0.51 k/uL (1.0-4.8); Monocytes # (M) 0.38 k/uL (0-1.0); Neutrophils % (M) 84 %; Nucleated Red Blood Cells 0 /100 WBC (0-0); Total Cells Counted 100
[2021-12-06] MEDS ORDERED: Potassium Replacement Protocol 1 EACH MISC MISCELLANE PRN (07:53)
[2021-12-06] MEDS ORDERED: Magnesium Replacement Protocol 1 EACH MISC MISCELLANE PRN (07:54)
[2021-12-06] MEDS: IPRATROPIUM-ALBUTEROL 3 ML NEB INHALATION SCH ×4 (08:07→20:04)
[2021-12-06] MEDS: CHLORHEXIDINE GLUCONATE 15 ML CUP MUCOUS MEM SCH ×2 (08:23→19:51)
[2021-12-06] MEDS: PANTOPRAZOLE 40 MG/10 ML VIAL IVP SCH (08:23)
[2021-12-06] MEDS: DEXTROSE 5%-0.45% NACL 1,000 ML IV SCH ×3 (08:23→22:43)
[2021-12-06] MEDS: ENOXAPARIN 40 MG/0.4 ML SYRINGE SQ SCH (08:23)
[2021-12-06] MEDS: POTASSIUM BICARBONATE/CIT AC 20 MEQ TABLET.EFF NG-TUBE SCH ×6 (08:23→19:51)
[2021-12-06] MEDS: MAGNESIUM SULFATE-D5W PMX 1 GM in DEXTROSE/WATER 1 100ML.BAG IVPB SCH ×2 (08:23→09:48)
[2021-12-06] MEDS: PIPERACILLIN-TAZOBACTAM 3.375 GM in SODIUM CHLORIDE 0.9% 100 ML IVPB SCH ×3 (08:52→23:03)
--- NOTE | 2021-12-06 09:23 | CDI ---
Documentation Clarification Form Date: 12/06/2021 09:07:12 AM From: Suze DunlapRubioMATY ornelas, CCDS Admit Date: 12/05/2021 06:16:00 AM Patient Name: Cm Meadows Visit Number: [id number] Discharge Date: ATTENTION: The Clinical Documentation Specialists (CDI) and [facility] Coding Staff appreciate your assistance in clarifying documentation. Please respond to the clarification below the line at the bottom and electronically sign. The CDI & [facility] Coding staff will review the response and follow-up if needed. Please note: Queries are made part of the Legal Health Record. If you have any questions, please contact the author of this message via ITS. Dr. Cristina Cash or Dr. Aly Mahan: The patient is admitted with Acute metabolic & toxic encephalopathy due to a drug overdose, UDS positive for Marijuana, TCA's and Amphetamines; Acute hypoxic respiratory failure and Hypotension requiring pressor support. Is there an additional diagnosis for this patient based on the clinical information? Patient history/risk factors per the 12/05 H/P: Depression with prior suicide attempt, COPD, Hypothyroidism, Hypertension, Osteoarthritis, Bipolar Disorder. Clinical Indicators: Presented to the ED on 12/04 vis EMS with Altered Mental Status possible Overdose. Police were called to the patient's home due to a domestic dispute, patient went into the bathroom and came out with very slurred speech, significant unresponsiveness. Admit with Weakness, Drug Overdose, Dehydration, Altered Mental Status, Delirium due to general medical condition, Hypotension and Hypokalemia. 12/05 VS: T 96.8, P 78, R 14, BP 67/38, 62/41, 59/38; PO 96 2Lnc, BMI: 31.2 12/04 LAB: RBC 3.71; Na 135, K 2.8, Total Protein 6.0 12/04 UA: Clear, 1+ protein, Hyaline casts 12/04 Toxicology: Salicylates <1.0, Acetaminophen <10.0, Valproic Acid <10.0, Tricyclic Antidepressants, Amphetamines, Marijuana & Serum Alcohol <10 Treatment 12/04, 12/05: Blood glucose monitoring, Telemetry, Hypoglycemia Protocol, Suicide precautions, Ngo cath, O2 2-3Lnc, IV Na Cl 1,000 mls @ 999 mls/hr q1H x3, IV Na Cl 1,000 mls @ 130 mls/hr q7H, IV Kcl 100 mls @ 50 mls/hr q2H, IV Synthroid 100 mg x2, IV Solumedrol 125 mg x1, IV Norepinephrine, Lovenox sq Daily. 12/05 O2 increased to High flow 10-15L. 12/06 Intubated, remains on vent. Please clarify if there is an additional diagnosis for this patient: [ x ] Hypovolemic Shock [ ] Traumatic Shock [ ] Other, please specify [ ] Unable to determine (Template Last Revised: September 2020) MTDD
--- NOTE | 2021-12-06 11:22 | OP ---
OPERATIVE REPORT OPERATIVE REPORT: Placement of left radial arterial line. PREOPERATIVE DIAGNOSIS: Acute hypoxic respiratory failure and multiple drug overdose. POSTOPERATIVE DIAGNOSIS: Acute hypoxic respiratory failure and multiple drug overdose. ANESTHESIA USED: None deployed. PROCEDURE DESCRIPTION: The left wrist was prepared in sterile fashion. Drapes were applied. The left radial artery was palpated, cannulated easily, and a guidewire was placed. A radial arterial catheter was placed over the guidewire. Guidewire was removed. Good blood flow and good waveform were noted. No complications. Line was secured using a 3.0 silk suture. MMODL / IJN: [id number] /
--- NOTE | 2021-12-06 12:50 | P.PN ---
Subjective Progress Note Date: 12/06/21 Principal diagnosis: Multiple drugs overdose This is a 51-year-old female with history of multiple medical problems, patient has bipolar disorder, hypertension, COPD, hypothyroidism, depression, previous history of suicidal attempt back on 09/06/21. Patient was in the hospital at the time and she was seen by psychiatry on consultation. At that time the patient had intentional overdose and she tested positive for try cyclic's, amphetamine, and marijuana. Last night, the patient came into the ER upon police requests . they were called to the house due to domestic dispute. Patient went at the time to the bathroom and came out and became very confused, speech was noted to be slurred, and she became unresponsive. Not much history could be obtained from the patient as he seems to be quite obtunded weak, she arouses briefly but she goes back to sleep and snoring. Patient does arouse with deep painful stimuli, and she seems to be able to protect her airways. She does have a good gag reflex at any rate patient was seen in the ER, and her drug screen came back positive for try cyclic, amphetamine, and positive for marijuana again. Patient did receive Narcan she also received dextrose in the ER, and not much of a change was noted. Patient had mostly dilated pupils, she is on IV fluid at 80 mL/h, on oxygen at 3 L/m, she is also on norepinephrine at 0.1 mcg/kg/m. Patient was noted to have labile blood pressure, received 2 L of fluids in the ER, her blood pressure did not improve much, hence norepinephrine was started via central line that was placed by the ER physician/right IJ central line. I saw the patient is ICU, considering that the patient had positive tricyclic and her drug screen, and considering the patient is relatively acidotic/metabolically, I started the patient on sodium bicarb drip. EKG in the ER showed mostly sinus rhythm, there was intraventricular conduction delay and nonspecific T-wave abnormality. She was also noted to have occasional premature ventricular complexes Patient was reevaluated today on , patient was doing fairly well yesterday, however when she woke up from her overdose yesterday, patient became extremely agitated, restless, and could not be controlled with Precedex, could not be controlled with IV medications including Ativan, I was notified about this patient and I recommended immediate intubation. He was intubated placed initially on propofol alone and she was still agitated on propofol, and could not be ventilated well, and Versed was added. At 10 mg per hour. Patient was maximized on propofol yesterday. And today she is on propofol at 40 mcg/kg/m Versed 1 mg/h. Patient was on bicarb on a long bicarb drip which I have discontinued this morning. She is on assist control rate of 24 volume 450 FiO2 50% PEEP of 8. ABG this morning showed a pO2 of 225 pCO2 40 pH of 7.46, I cut down her FiO2 down to 40%. And I have ordered discontinuation of Versed. Her chest x-ray clearly showing some component of aspiration pneumonia, hence I'm recommending that was started the patient on Zosyn. Patient is clearly not ready for any weaning, she'll be kept on mechanical ventilation, she'll be kept on propofol, and she'll be kept on GI and DVT prophylaxis, as well as antibiotics in the form of Zosyn. WBC count is 12.7 hemoglobin is 12.4 electrolytes and renal profile are normal except for low potassium of 3.0 Objective - Vital Signs Vital signs: Vital Signs Temp 98.6 F 12/06/21 12:00 Pulse 98 12/06/21 12:30 Resp 19 12/06/21 12:30 BP 95/60 12/06/21 10:15 Pulse Ox 99 12/06/21 12:30 Intake & Output 12/05/21 12/06/21 12/06/21 18:59 06:59 18:59 Intake Total 2705.752 1998.436 972.404 Output Total 450 1175 425 Balance 2255.752 823.436 547.404 Weight 79.061 kg 85 kg 85 kg Intake: IV 2479 1860 875 .9@ 10 30 Dextrose 5% in Water 1, 600 900 225 000 ml @ 75 mls/hr IV . [id number] [facility] with Sodium Bicarb (1 Meq/ml) 150 ml Rx#:[id number] Dextrose 5%-0.45% NaCl 1, 880 960 320 000 ml @ 80 mls/hr IV . [id number] [facility] Rx#:[id number] Magnesium Sulfate-D5w Pmx 200 1 gm In Dextrose/Water 1 100ml.bag @ 100 mls/hr IVPB Q1H [facility] Rx#: [id number] Piperacillin-Tazobactam 3 100 .375 gm In Sodium Chloride 0.9% 100 ml @ 25 mls/hr IVPB Q8HR [facility] Rx# :[id number] Sodium Chloride 0.9% 1, 999 000 ml @ 999 mls/hr IV . Q1H1M [facility] Rx#:[id number] Intake, IV Titration 226.752 138.436 97.404 Amount Midazolam HCl 50 mg In 0.25 10.2 Sodium Chloride 0.9% 40 ml @ 1 MG/HR 1 mls/hr IV .Q24H [facility] Rx#:[id number] Norepinephrine 32 mg In 2.594 38.186 Sodium Chloride 0.9% 218 ml @ 0.05 MCG/KG/MIN 1. 853 mls/hr IV .Q24H [facility] Rx#:[id number] Norepinephrine 4 mg In 224.158 Sodium Chloride 0.9% 250 ml @ 0.05 MCG/KG/MIN 15. 061 mls/hr IV .[id number] [facility] Rx#:[id number] propofoL 1,000 mg In 100.000 87.204 Empty Bag 1 bag @ 5 MCG/ KG/MIN 2.372 mls/hr IV . Q24H [facility] Rx#:[id number] Output: Urine 450 1175 425 Other: Voiding Method Indwelling Catheter Indwelling Catheter Indwelling Catheter ABP, PAP, CO, CI - Last Documented Arterial Blood Pressure 108/52 - Exam General appearance: Patient is intubated, mechanically ventilated, sedated, on propofol and Versed. Head exam: Atraumatic, normocephalic Eye exam: PERRLA, EOMI, anicteric. ENT exam: Dry mucous membranes, throat is clear. Neck exam: Supple no neck masses no JVD no stridor. Respiratory exam: Crackles and rhonchi noted bilaterally. Cardiovascular Exam: Distant S1 and S2, no S3 gallop, no murmur. GI/Abdominal exam: Obese soft nontender, no guarding, no rebound Extremities exam: No clubbing edema or cyanosis. Neurological exam: Could not assess, fully sedated. Psychiatric exam: Could not be assessed, fully sedated Skin exam: Multiple tattoos all over, no rashes otherwise. - Labs CBC & Chem 7: 12/06/21 06:45 12/06/21 06:45 Labs: Abnormal Lab Results - Last 24 Hours (Table) 12/06/21 12/06/21 12/06/21 Range/Units 05:21 06:45 06:45 WBC 12.7 H (3.8-10.6) k/uL Neutrophils # (Manual) 11.80 H (1.3-7.7) k/uL Lymphocytes # (Manual) 0.51 L (1.0-4.8) k/uL ABG pH 7.46 H (7.35-7.45) ABG pO2 225 H (83-108) mmHg ABG HCO3 28 H (21-25) mmol/L ABG Total CO2 29 H (19-24) mmol/L ABG O2 Saturation 99.6 H (94-97) % Sodium 136 L (137-145) mmol/L Potassium 3.0 L (3.5-5.1) mmol/L Glucose 137 H (74-99) mg/dL Calcium 7.5 L (8.4-10.2) mg/dL Phosphorus 2.4 L (2.5-4.5) mg/dL Total Protein 5.5 L (6.3-8.2) g/dL Albumin 3.0 L (3.5-5.0) g/dL Assessment and Plan Assessment: Impression: Acute hypoxic respiratory failure secondary to aspiration pneumonia and possibly withdrawal from different drugs and drug overdose. Altered mental status secondary to multiple drugs overdose, strongly suspect mostly tricyclics overdose, and possibly amphetamine overdose History of depression and history of suicidal attempts in the past. Previous history of Depakote overdose Benign essential hypertension History of hypothyroidism History of underlying COPD Bipolar disorder Acute hypoxic respiratory failure secondary to drug overdose, aspiration pneumonia Recommendation: Continue ventilatory support. Start the nutritional support/enteral feeding. Antibiotics for presumptive aspiration pneumonia. Will utilize Zosyn. GI and DVT prophylaxis. Continue to monitor the patient in the ICU Patient is off norepinephrine. Discontinue sodium bicarb. Continue to monitor the patient hemodynamically, patient lost her right radial arterial line yesterday when she was agitated, a new left radial arterial line was placed today. Continue to monitor electrolytes. No plans to wean the patient at this point, patient was just intubated last night. continue suicidal precautions. Patient is critically ill, critical care time is over 30 minutes, not including the time spent on procedures Time with Patient: Greater than 30
--- NOTE | 2021-12-06 15:30 | P.CON ---
Consult Note - . Consult date: 12/06/21 Assessment/Plan:: Clinical Problems: Acute hypoxic respiratory failure secondary to aspiration pneumonia and possibly withdrawal from different drugs and drug overdose, delirium secondary to multiple drugs overdose, strongly suspect mostly tricyclics overdose, and possibly amphetamine overdose, history of depression and past suicide attempts and gestures. Interim history: I reviewed the medical record and attempted to interview the patient. She is currently intubated and on a propofol drip for the treatment of acute agitation secondary to multiple drug overdose. According to the record she woke up yesterday and became extremely agitated. The agitation and could not be controlled with Precedex or IV Ativan. She was intubated and placed on a propofol and Versed. Mental status exam: She is responsive and on a ventilator. Assessment: She is not appropriate for psychiatric assessment at this time. Plan: Psychiatrist sign off on the case. Please reconsult which she has medically decompensated.
[2021-12-06] MEDS: NOREPINEPHRINE 32 MG in SODIUM CHLORIDE 0.9% 218 ML IV SCH (17:24)
[2021-12-07] MEDS ORDERED: POTASSIUM BICARBONATE/CIT AC 20 MEQ TABLET.EFF NG-TUBE SCH ×4 (02:00→22:00)
[2021-12-07 05:54] LABS: ABG Base Excess 7.6 mmol/L; ABG HCO3 31 mmol/L (21-25); ABG Oxygen Saturation 95.5 % (94-97); ABG PCO2 40 mmHg (35-45); ABG PO2 68 mmHg (83-108); ABG TCO2 32 mmol/L (19-24); Allen Test Performed? Yes
[2021-12-07 06:03] LABS: Basophils % (A) 0 %; Eosinophils # (A) 0.1 k/uL (0-0.7); Eosinophils % (A) 1 %; HCT 32.3 % (34.0-46.0); HGB 10.7 gm/dL (11.4-16.0); Lymphocytes % (A) 7 %; MCH 30.5 pg (25.0-35.0); MCV 92.4 fL (80.0-100.0); Monocytes # (A) 0.3 k/uL (0-1.0); Monocytes % (A) 2 %; Neutrophils # (A) 13.9 k/uL (1.3-7.7); Neutrophils % (A) 90 %; Platelet Count 187 k/uL (150-450); RBC 3.49 m/uL (3.80-5.40); RDW 13.9 % (11.5-15.5); WBC 15.3 k/uL (3.8-10.6)
[2021-12-07 06:15] LABS: African American GFR (CKD) >90 (>60 ml/min/1.73 sqM); Anion Gap 1 mmol/L; Blood Urea Nitrogen 15 mg/dL (7-17); Calcium 7.5 mg/dL (8.4-10.2); Carbon Dioxide 31 mmol/L (22-30); Chloride 103 mmol/L (98-107); Glucose 109 mg/dL (74-99); Magnesium 2.3 mg/dL (1.6-2.3); Non-African American GFR(CKD) >90 (>60 ml/min/1.73 sqM); Potassium 3.6 mmol/L (3.5-5.1); Sodium 135 mmol/L (137-145)
--- NOTE | 2021-12-07 06:21 | XR ---
EXAMINATION TYPE: XR chest 1V portable DATE OF EXAM: 12/07/2021 CLINICAL HISTORY: Difficulty breathing progress study. TECHNIQUE: Single AP portable semiupright view of the chest is obtained. COMPARISON: Chest x-ray from one day earlier and older studies FINDINGS: Stable endotracheal and orogastric tubes. Stable right internal jugular central venous cat heter. Persistent right central airspace opacity with superior extension and left basilar opacity. Cardiac s ilhouette size is stable and within normal limits. Osseous structures are intact. IMPRESSION: Persistent central right lung acute infiltrate and left basilar acute infiltrate and/or a telectasis with suspected small to tiny left pleural effusion. No significant change from one day ear lier.
[2021-12-07] MEDS: IPRATROPIUM-ALBUTEROL 3 ML NEB INHALATION SCH ×4 (07:44→20:11)
[2021-12-07] MEDS: CHLORHEXIDINE GLUCONATE 15 ML CUP MUCOUS MEM SCH ×2 (08:48→20:13)
[2021-12-07] MEDS: PIPERACILLIN-TAZOBACTAM 3.375 GM in SODIUM CHLORIDE 0.9% 100 ML IVPB SCH ×3 (08:48→23:18)
[2021-12-07] MEDS: PANTOPRAZOLE 40 MG/10 ML VIAL IVP SCH (08:48)
[2021-12-07] MEDS: ENOXAPARIN 40 MG/0.4 ML SYRINGE SQ SCH (08:48)
[2021-12-07] MEDS: DEXTROSE 5%-0.45% NACL 1,000 ML IV SCH ×2 (08:50→20:13)
--- NOTE | 2021-12-07 10:43 | P.PN ---
Subjective Progress Note Date: 12/07/21 Principal diagnosis: Multiple drugs overdose This is a 51-year-old female with history of multiple medical problems, patient has bipolar disorder, hypertension, COPD, hypothyroidism, depression, previous history of suicidal attempt back on 09/06/21. Patient was in the hospital at the time and she was seen by psychiatry on consultation. At that time the patient had intentional overdose and she tested positive for try cyclic's, amphetamine, and marijuana. Last night, the patient came into the ER upon police requests . they were called to the house due to domestic dispute. Patient went at the time to the bathroom and came out and became very confused, speech was noted to be slurred, and she became unresponsive. Not much history could be obtained from the patient as he seems to be quite obtunded weak, she arouses briefly but she goes back to sleep and snoring. Patient does arouse with deep painful stimuli, and she seems to be able to protect her airways. She does have a good gag reflex at any rate patient was seen in the ER, and her drug screen came back positive for try cyclic, amphetamine, and positive for marijuana again. Patient did receive Narcan she also received dextrose in the ER, and not much of a change was noted. Patient had mostly dilated pupils, she is on IV fluid at 80 mL/h, on oxygen at 3 L/m, she is also on norepinephrine at 0.1 mcg/kg/m. Patient was noted to have labile blood pressure, received 2 L of fluids in the ER, her blood pressure did not improve much, hence norepinephrine was started via central line that was placed by the ER physician/right IJ central line. I saw the patient is ICU, considering that the patient had positive tricyclic and her drug screen, and considering the patient is relatively acidotic/metabolically, I started the patient on sodium bicarb drip. EKG in the ER showed mostly sinus rhythm, there was intraventricular conduction delay and nonspecific T-wave abnormality. She was also noted to have occasional premature ventricular complexes Patient was reevaluated today on 12/06/21, patient was doing fairly well yesterday, however when she woke up from her overdose yesterday, patient became extremely agitated, restless, and could not be controlled with Precedex, could not be controlled with IV medications including Ativan, I was notified about this patient and I recommended immediate intubation. He was intubated placed initially on propofol alone and she was still agitated on propofol, and could not be ventilated well, and Versed was added. At 10 mg per hour. Patient was maximized on propofol yesterday. And today she is on propofol at 40 mcg/kg/m Versed 1 mg/h. Patient was on bicarb on a long bicarb drip which I have discontinued this morning. She is on assist control rate of 24 volume 450 FiO2 50% PEEP of 8. ABG this morning showed a pO2 of 225 pCO2 40 pH of 7.46, I cut down her FiO2 down to 40%. And I have ordered discontinuation of Versed. Her chest x-ray clearly showing some component of aspiration pneumonia, hence I'm recommending that was started the patient on Zosyn. Patient is clearly not ready for any weaning, she'll be kept on mechanical ventilation, she'll be kept on propofol, and she'll be kept on GI and DVT prophylaxis, as well as antibiotics in the form of Zosyn. WBC count is 12.7 hemoglobin is 12.4 electrolytes and renal profile are normal except for low potassium of 3.0 reevaluated today on 12/07/21, patient remains in the ICU, intubated and mec hanically ventilated. Patient is on assist control rate of 2010 volume 450 FiO2 40% and PEEP is 8 her ABG showed a pO2 of 68 pCO2 of 40 0 pH of 7.50. Hence no changes were made in her ventilator settings. Patient remains on propofol at 50 mcg/kg/m, D5 4 5 at 80 mL/h, vital AF at 29 mL/h, and she is on Zosyn empirically for presumptive aspiration pneumonia. Chest x-ray continues to show right upper lobe and left lower lobe infiltrate consistent with aspiration.sputum cultures were ordered, and they are pending.WBC count today is 15.3 hemoglobin is 10.7.basic metabolic profile is normal, renal profile is normal Objective - Vital Signs Vital signs: Vital Signs Temp 98.4 F 12/07/21 08:00 Pulse 92 12/07/21 10:00 Resp 20 12/07/21 10:00 BP 95/60 12/06/21 10:15 Pulse Ox 97 12/07/21 10:00 Intake & Output 12/06/21 12/07/21 12/07/21 18:59 06:59 18:59 Intake Total 5446.563 3551.908 496 Output Total 645 715 350 Balance 5211.876 5483.908 146 Weight 85 kg 89.9 kg Intake: IV 1515 1203 379 .9@ 10 90 163 39 Dextrose 5% in Water 1, 225 000 ml @ 75 mls/hr IV . [id number] [facility] with Sodium Bicarb (1 Meq/ml) 150 ml Rx#:[id number] Dextrose 5%-0.45% NaCl 1, 800 1040 240 000 ml @ 80 mls/hr IV . [id number] [facility] Rx#:[id number] Magnesium Sulfate-D5w Pmx 200 1 gm In Dextrose/Water 1 100ml.bag @ 100 mls/hr IVPB Q1H [facility] Rx#: [id number] Piperacillin-Tazobactam 3 200 100 .375 gm In Sodium Chloride 0.9% 100 ml @ 25 mls/hr IVPB Q8HR [facility] Rx# :[id number] Intake, IV Titration 197.404 265.908 Amount Midazolam HCl 50 mg In 10.2 Sodium Chloride 0.9% 40 ml @ 1 MG/HR 1 mls/hr IV .Q24H [facility] Rx#:[id number] propofoL 1,000 mg In 187.204 265.908 Empty Bag 1 bag @ 5 MCG/ KG/MIN 2.372 mls/hr IV . Q24H [facility] Rx#:[id number] Tube Feeding 20 224 87 Other 90 30 Output: Urine 645 715 350 Other: Voiding Method Indwelling Catheter Indwelling Catheter Indwelling Catheter ABP, PAP, CO, CI - Last Documented Arterial Blood Pressure 106/53 - Exam General appearance: Patient is intubated, mechanically ventilated, sedated, on propofol patient is off Versed today Head exam: Atraumatic, normocephalic Eye exam: PERRLA, EOMI, anicteric. ENT exam: Dry mucous membranes, throat is clear. Neck exam: Supple no neck masses no JVD no stridor. Respiratory exam: Crackles and rhonchi noted bilaterally. Cardiovascular Exam: Distant S1 and S2, no S3 gallop, no murmur. GI/Abdominal exam: Obese soft nontender, no guarding, no rebound Extremities exam: No clubbing edema or cyanosis. Neurological exam: Could not assess, fully sedated. Psychiatric exam: Could not be assessed, fully sedated Skin exam: Multiple tattoos all over, no rashes otherwise. - Labs CBC & Chem 7: 12/07/21 05:53 12/07/21 05:53 Labs: Abnormal Lab Results - Last 24 Hours (Table) 12/06/21 12/06/21 12/07/21 Range/Units 13:35 18:06 05:45 WBC (3.8-10.6) k/uL RBC (3.80-5.40) m/uL Hgb (11.4-16.0) gm/dL Hct (34.0-46.0) % Neutrophils # (1.3-7.7) k/uL ABG pH 7.50 H (7.35-7.45) ABG pO2 68 L (83-108) mmHg ABG HCO3 31 H (21-25) mmol/L ABG Total CO2 32 H (19-24) mmol/L Sodium (137-145) mmol/L Potassium 3.1 L 3.4 L (3.5-5.1) mmol/L Carbon Dioxide (22-30) mmol/L Glucose (74-99) mg/dL Calcium (8.4-10.2) mg/dL 12/07/21 12/07/21 Range/Units 05:53 05:53 WBC 15.3 H (3.8-10.6) k/uL RBC 3.49 L (3.80-5.40) m/uL Hgb 10.7 L (11.4-16.0) gm/dL Hct 32.3 L (34.0-46.0) % Neutrophils # 13.9 H (1.3-7.7) k/uL ABG pH (7.35-7.45) ABG pO2 (83-108) mmHg ABG HCO3 (21-25) mmol/L ABG Total CO2 (19-24) mmol/L Sodium 135 L (137-145) mmol/L Potassium (3.5-5.1) mmol/L Carbon Dioxide 31 H (22-30) mmol/L Glucose 109 H (74-99) mg/dL Calcium 7.5 L (8.4-10.2) mg/dL Assessment and Plan Assessment: Impression: Acute hypoxic respiratory failure secondary to aspiration pneumonia and possibly withdrawal from different drugs and drug overdose. Altered mental status secondary to multiple drugs overdose, strongly suspect mostly tricyclics overdose, and possibly amphetamine overdose History of depression and history of suicidal attempts in the past. Previous history of Depakote overdose Benign essential hypertension History of hypothyroidism History of underlying COPD Bipolar disorder Acute hypoxic respiratory failure secondary to drug overdose, aspiration pneumonia Recommendation: Continue ventilatory support. continue empiric antibiotics, cultures are pending sputum cultures were ordered. continue nutritional support/enteral feeding. Antibiotics for presumptive aspiration pneumonia. Will utilize Zosyn. GI and DVT prophylaxis. Continue to monitor the patient in the ICU Continue to monitor the patient hemodynamically Continue to monitor electrolytes.Venkat profile on a daily basis. patient is not ready for any weaning trials. continue suicidal precautions. Patient is critically ill, critical care time is over 30 minutes Time with Patient: Greater than 30
[2021-12-07] MEDS: NOREPINEPHRINE 32 MG in SODIUM CHLORIDE 0.9% 218 ML IV SCH (15:46)
[2021-12-07] MEDS ORDERED: Potassium Replacement Protocol 1 EACH MISC MISCELLANE PRN (21:16)
--- NOTE | 2021-12-08 00:06 | P.PN ---
Subjective Progress Note Date: 12/06/21 Patient is a 51-year-old female with a known history of asthma/COPD, hypertension, hypothyroidism, herniated disc, depression/bipolar disorder and other medical problems and previous history of overdose while brought to the ER due to altered mental status. Patient was brought to the hospital by police due to domestic dispute and the patient went to the bathroom and came out and started having slurred speech and was not speaking well EMS was called and patient was brought to the hospital. Otherwise patient was noted any symptoms prior to the episode. No nausea vomiting abdominal pain or diarrhea. No recent illnesses. Patient is currently admitted to the MICU. Currently requiring Levophed due to hypotension. UDS is positive for tree tricyclic antidepressants, amphetamines and marijuana. Chest x-ray showed no active cardiopulmonary disease. Normal heart. There is essentially complete clearing of the atelectasis and infiltrate left lung base compared to old exam. CT head and cervical spine showed negative CT scan of the brain. Spondylosis at C5-C6. Calcified posterior disc herniation with 6 mm spinal stenosis at C5-C6. No cervical spine fracture. EKG showed sinus rhythm with occasional ventricular premature complexes. Other laboratory data showed WBC 5.7 hemoglobin 11.4 platelets 218 INR 1.0 ABG showed pH 7.35 PCO2 38 and PO2 59 Sodium 135 potassium 2.8 chloride 102 BUN 16 creatinine 0.85 liver enzymes are not elevated. TSH 1.7 within normal limits. Urinalysis is negative for infection. 12/06/2021. Patient is in the MICU. Patient was agitated and could not be controlled with Precedex and IV Ativan. Patient was intubated and added Versed. . ABG showed pH 7.46 PCO2 40 PO2 225 Sodium 136 potassium 3.0 chloride 104 bicarb is 27. Bicarb drip has been discontinued. Blood sugar is 137 calcium 7.4 and albumin 3.0 BUN 30 and creatinine 0.58. WBC 12.7 hemoglobin 12.4 and platelets 235 Patient is being continued antibiotics in the form of Zosyn for possible aspiration. Chest x-ray showed bilateral pneumonia increased compared to exam yesterday. No heart failure. Current medications reviewed. Objective - Vital Signs Vital signs: Vital Signs Temp 99.2 F 12/06/21 20:00 Pulse 98 12/06/21 21:00 Resp 24 12/06/21 21:00 BP 95/60 12/06/21 10:15 Pulse Ox 97 12/06/21 21:00 Intake & Output 12/06/21 12/06/21 12/07/21 06:59 18:59 06:59 Intake Total 3490.727 6230.404 230 Output Total 1175 645 70 Balance 143.114 9583.404 160 Weight 85 kg 85 kg Intake: IV 1860 1515 180 .9@ 10 90 20 Dextrose 5% in Water 1, 900 225 000 ml @ 75 mls/hr IV . [id number] [facility] with Sodium Bicarb (1 Meq/ml) 150 ml Rx#:[id number] Dextrose 5%-0.45% NaCl 1, 960 800 160 000 ml @ 80 mls/hr IV . [id number] [facility] Rx#:[id number] Magnesium Sulfate-D5w Pmx 200 1 gm In Dextrose/Water 1 100ml.bag @ 100 mls/hr IVPB Q1H [facility] Rx#: [id number] Piperacillin-Tazobactam 3 200 .375 gm In Sodium Chloride 0.9% 100 ml @ 25 mls/hr IVPB Q8HR [facility] Rx# :[id number] Intake, IV Titration 138.436 197.404 Amount Midazolam HCl 50 mg In 0.25 10.2 Sodium Chloride 0.9% 40 ml @ 1 MG/HR 1 mls/hr IV .Q24H [facility] Rx#:[id number] Norepinephrine 32 mg In 38.186 Sodium Chloride 0.9% 218 ml @ 0.05 MCG/KG/MIN 1. 853 mls/hr IV .Q24H [facility] Rx#:[id number] propofoL 1,000 mg In 100.000 187.204 Empty Bag 1 bag @ 5 MCG/ KG/MIN 2.372 mls/hr IV . Q24H [facility] Rx#:[id number] Tube Feeding 20 20 Other 30 Output: Urine 1175 645 70 Other: Voiding Method Indwelling Catheter Indwelling Catheter Indwelling Catheter ABP, PAP, CO, CI - Last Documented Arterial Blood Pressure 97/51 - Exam PHYSICAL EXAMINATION: Patient is lying in the bed. Patient is intubated on mechanical ventilator and sedated. HEENT: Normocephalic. Neck is supple. Pupils reactive. Nostrils clear. Oral cavity is moist. Neck reveals no JVD, carotid bruits, or thyromegaly. CHEST EXAMINATION: Trachea is central. Symmetrical expansion. Bibasilar diminished sounds. No rhonchi or wheezing.. CARDIAC: Normal S1, S2 with no gallops. No murmurs ABDOMEN: Soft. Bowel sounds present. No organomegaly. No abdominal bruits. Extremities: reveal no edema. No clubbing or cyanosis Neurologically patient is sedated and on mechanical ventilator. No gross focal deficits noted Skin: No rash or skin lesions. Psychiatric: Could not be assessed at this time. Musculoskeletal: No joint swelling or deformity. - Labs CBC & Chem 7: 12/07/21 05:53 12/07/21 20:30 Labs: Abnormal Lab Results - Last 24 Hours (Table) 12/06/21 12/06/21 12/06/21 Range/Units 05: 06:45 06:45 WBC 12.7 H (3.8-10.6) k/uL Neutrophils # (Manual) 11.80 H (1.3-7.7) k/uL Lymphocytes # (Manual) 0.51 L (1.0-4.8) k/uL ABG pH 7.46 H (7.35-7.45) ABG pO2 225 H (83-108) mmHg ABG HCO3 28 H (21-25) mmol/L ABG Total CO2 29 H (19-24) mmol/L ABG O2 Saturation 99.6 H (94-97) % Sodium 136 L (137-145) mmol/L Potassium 3.0 L (3.5-5.1) mmol/L Glucose 137 H (74-99) mg/dL Calcium 7.5 L (8.4-10.2) mg/dL Phosphorus 2.4 L (2.5-4.5) mg/dL Total Protein 5.5 L (6.3-8.2) g/dL Albumin 3.0 L (3.5-5.0) g/dL 12/06/21 12/06/21 Range/Units 13:35 18:06 WBC (3.8-10.6) k/uL Neutrophils # (Manual) (1.3-7.7) k/uL Lymphocytes # (Manual) (1.0-4.8) k/uL ABG pH (7.35-7.45) ABG pO2 (83-108) mmHg ABG HCO3 (21-25) mmol/L ABG Total CO2 (19-24) mmol/L ABG O2 Saturation (94-97) % Sodium (137-145) mmol/L Potassium 3.1 L 3.4 L (3.5-5.1) mmol/L Glucose (74-99) mg/dL Calcium (8.4-10.2) mg/dL Phosphorus (2.5-4.5) mg/dL Total Protein (6.3-8.2) g/dL Albumin (3.5-5.0) g/dL Assessment and Plan Assessment: Acute hypoxic respiratory failure secondary to aspiration pneumonia and possible drug withdrawal. Currently patient is on mechanical ventilator. Acute metabolic and toxic encephalopathy due to drug overdose. UDS positive for marijuana, TCA'S and amphetamines. Acute hypoxic respiratory failure secondary to drug overdose Hypotension requiring pressor support. Rule out infection. Severe hypokalemia Depression with suicide attempt and prior history of similar episode. COPD not in exacerbation Hypothyroidism Hypertension Osteoarthritis Bipolar disorder and depression DVT prophylaxis Plan: Patient will be continued on IV hydration and oxygen supplementation. Continue with antibiotics in the form of Zosyn. was requiring pressor support with Levophed. Replace electrolytes and monitor closely. Continue with supportive care. Pulmonary is on board. Continue with GI and DVT prophylaxis. Psychiatry was consulted for evaluation. Time with Patient: Greater than 30
--- NOTE | 2021-12-08 00:08 | P.PN ---
Subjective Progress Note Date: 12/07/21 Patient is a 51-year-old female with a known history of asthma/COPD, hypertension, hypothyroidism, herniated disc, depression/bipolar disorder and other medical problems and previous history of overdose while brought to the ER due to altered mental status. Patient was brought to the hospital by police due to domestic dispute and the patient went to the bathroom and came out and started having slurred speech and was not speaking well EMS was called and patient was brought to the hospital. Otherwise patient was noted any symptoms prior to the episode. No nausea vomiting abdominal pain or diarrhea. No recent illnesses. Patient is currently admitted to the MICU. Currently requiring Levophed due to hypotension. UDS is positive for tree tricyclic antidepressants, amphetamines and marijuana. Chest x-ray showed no active cardiopulmonary disease. Normal heart. There is essentially complete clearing of the atelectasis and infiltrate left lung base compared to old exam. CT head and cervical spine showed negative CT scan of the brain. Spondylosis at C5-C6. Calcified posterior disc herniation with 6 mm spinal stenosis at C5-C6. No cervical spine fracture. EKG showed sinus rhythm with occasional ventricular premature complexes. Other laboratory data showed WBC 5.7 hemoglobin 11.4 platelets 218 INR 1.0 ABG showed pH 7.35 PCO2 38 and PO2 59 Sodium 135 potassium 2.8 chloride 102 BUN 16 creatinine 0.85 liver enzymes are not elevated. TSH 1.7 within normal limits. Urinalysis is negative for infection. 12/06/2021. Patient is in the MICU. Patient was agitated and could not be controlled with Precedex and IV Ativan. Patient was intubated and added Versed. . ABG showed pH 7.46 PCO2 40 PO2 225 Sodium 136 potassium 3.0 chloride 104 bicarb is 27. Bicarb drip has been discontinued. Blood sugar is 137 calcium 7.4 and albumin 3.0 BUN 30 and creatinine 0.58. WBC 12.7 hemoglobin 12.4 and platelets 235 Patient is being continued antibiotics in the form of Zosyn for possible aspiration. Chest x-ray showed bilateral pneumonia increased compared to exam yesterday. No heart failure. 12/07/2021. Patient remains on mechanical ventilator. Currently on propofol. ABG showed pH 7.5 PCO2 40 and PO2 68. Patient has been afebrile. Chest x-ray showed persistent central right lung acute infiltrate and left basilar acute infiltrate and/or atelectasis with suspected small to tiny left pleural effusion. No significant change from 1 day earlier. Laboratory pressure WBC 14.3 hemoglobin 10.7 and platelets 187 sodium 135 potassium 3.6 chloride 103 bicarb is 31 BUN 15 and creatinine 0.56 and calcium 7.5. Patient remains on antibiotics in the form of Zosyn. Current medications reviewed. Objective - Vital Signs Vital signs: Vital Signs Temp 98.4 F 12/07/21 20:00 Pulse 98 12/07/21 21:00 Resp 22 12/07/21 21:00 BP 95/60 12/06/21 10:15 Pulse Ox 93 L 12/07/21 21:00 Intake & Output 12/07/21 12/07/21 12/08/21 06:59 18:59 06:59 Intake Total 6906.843 8482.295 244 Output Total 715 1190 185 Balance 1067.908 723.295 59 Weight 89.9 kg Intake: IV 1203 1216 186 .9@ 10 163 156 26 Dextrose 5%-0.45% NaCl 1, 1040 960 160 000 ml @ 80 mls/hr IV . [id number] [facility] Rx#:[id number] Piperacillin-Tazobactam 3 100 .375 gm In Sodium Chloride 0.9% 100 ml @ 25 mls/hr IVPB Q8HR [facility] Rx# :[id number] Intake, IV Titration 265.908 259.295 Amount propofoL 1,000 mg In 265.908 259.295 Empty Bag 1 bag @ 5 MCG/ KG/MIN 2.372 mls/hr IV . Q24H [facility] Rx#:[id number] Tube Feeding 224 348 58 Other 90 90 Output: Urine 715 1190 185 Other: Voiding Method Indwelling Catheter Indwelling Catheter Indwelling Catheter ABP, PAP, CO, CI - Last Documented Arterial Blood Pressure 107/58 - Exam PHYSICAL EXAMINATION: Patient is lying in the bed. Patient is intubated on mechanical ventilator and sedated. HEENT: Normocephalic. Neck is supple. Pupils reactive. Nostrils clear. Oral cavity is moist. Neck reveals no JVD, carotid bruits, or thyromegaly. CHEST EXAMINATION: Trachea is central. Symmetrical expansion. Bibasilar diminished sounds. No rhonchi or wheezing.. CARDIAC: Normal S1, S2 with no gallops. No murmurs ABDOMEN: Soft. Bowel sounds present. No organomegaly. No abdominal bruits. Extremities: reveal no edema. No clubbing or cyanosis Neurologically patient is sedated and on mechanical ventilator. No gross focal deficits noted Skin: No rash or skin lesions. Psychiatric: Could not be assessed at this time. Musculoskeletal: No joint swelling or deformity. - Labs CBC & Chem 7: 12/07/21 05:53 12/07/21 20:30 Labs: Abnormal Lab Results - Last 24 Hours (Table) 12/07/21 12/07/21 12/07/21 Range/Units 05:45 05:53 05:53 WBC 15.3 H (3.8-10.6) k/uL RBC 3.49 L (3.80-5.40) m/uL Hgb 10.7 L (11.4-16.0) gm/dL Hct 32.3 L (34.0-46.0) % Neutrophils # 13.9 H (1.3-7.7) k/uL ABG pH 7.50 H (7.35-7.45) ABG pO2 68 L (83-108) mmHg ABG HCO3 31 H (21-25) mmol/L ABG Total CO2 32 H (19-24) mmol/L Sodium 135 L (137-145) mmol/L Carbon Dioxide 31 H (22-30) mmol/L Glucose 109 H (74-99) mg/dL Calcium 7.5 L (8.4-10.2) mg/dL Microbiology - Last 24 Hours (Table) 12/07/21 08:20 Sputum Culture - Preliminary Sputum Assessment and Plan Assessment: Acute hypoxic respiratory failure secondary to aspiration pneumonia and possible drug withdrawal. Currently patient is on mechanical ventilator. Acute metabolic and toxic encephalopathy due to drug overdose. UDS positive for marijuana, TCA'S and amphetamines. Acute hypoxic respiratory failure secondary to drug overdose Hypotension requiring pressor support. Rule out infection. Severe hypokalemia Depression with suicide attempt and prior history of similar episode. COPD not in exacerbation Hypothyroidism Hypertension Osteoarthritis Bipolar disorder and depression DVT prophylaxis Plan: Patient will be continued on IV hydration and oxygen supplementation. Continue with antibiotics in the form of Zosyn. was requiring pressor support with Levophed. Replace electrolytes and monitor closely. Continue with supportive care. Pulmonary is on board. Continue with GI and DVT prophylaxis. Psychiatry was consulted for evaluation. Time with Patient: Greater than 30
[2021-12-08 05:12] LABS: African American GFR (CKD) >90 (>60 ml/min/1.73 sqM); Anion Gap 3 mmol/L; Blood Urea Nitrogen 14 mg/dL (7-17); Calcium 7.6 mg/dL (8.4-10.2); Carbon Dioxide 30 mmol/L (22-30); Chloride 100 mmol/L (98-107); Glucose 123 mg/dL (74-99); Non-African American GFR(CKD) >90 (>60 ml/min/1.73 sqM); Sodium 133 mmol/L (137-145)
[2021-12-08] MEDS ORDERED: Potassium Replacement Protocol 1 EACH MISC MISCELLANE PRN ×2 (05:14→05:26)
[2021-12-08 05:52] LABS: ABG Base Excess 5.7 mmol/L; ABG HCO3 29 mmol/L (21-25); ABG Oxygen Saturation 95.9 % (94-97); ABG PCO2 40 mmHg (35-45); ABG PH 7.47 (7.35-7.45); ABG PO2 74 mmHg (83-108); ABG TCO2 31 mmol/L (19-24); Allen Test Performed? Yes
[2021-12-08] MEDS ORDERED: POTASSIUM BICARBONATE/CIT AC 20 MEQ TABLET.EFF NG-TUBE SCH (06:00)
[2021-12-08] MEDS ORDERED: POTASSIUM CHLORIDE ER 20 MEQ TAB.ER PO SCH (06:00)
--- NOTE | 2021-12-08 06:57 | XR ---
EXAMINATION TYPE: XR chest 1V portable DATE OF EXAM: 12/08/2021 CLINICAL HISTORY: Difficulty breathing progress study. TECHNIQUE: Single AP portable upright view of the chest is obtained. COMPARISON: Chest x-ray from one day earlier and older studies FINDINGS: Stable endotracheal and orogastric tubes. Stable right internal jugular central venous cat heter. Persistent right central airspace opacity with superior extension and left basilar opacity. Cardiac s ilhouette size is stable and within normal limits. Osseous structures are intact. IMPRESSION: Persistent central right lung acute infiltrate and/or edema and left basilar acute infilt rate and/or atelectasis with suspected small to tiny left pleural effusion. No significant change fro m one day earlier.
[2021-12-08] MEDS: IPRATROPIUM-ALBUTEROL 3 ML NEB INHALATION SCH ×4 (07:50→19:43)
[2021-12-08] MEDS: SODIUM CHLORIDE 0.9% 1,000 ML IV SCH ×2 (09:48→22:27)
[2021-12-08] MEDS: ENOXAPARIN 40 MG/0.4 ML SYRINGE SQ SCH (09:49)
[2021-12-08] MEDS: PIPERACILLIN-TAZOBACTAM 3.375 GM in SODIUM CHLORIDE 0.9% 100 ML IVPB SCH ×2 (09:49→16:12)
[2021-12-08] MEDS: CHLORHEXIDINE GLUCONATE 15 ML CUP MUCOUS MEM SCH ×2 (09:49→20:34)
[2021-12-08] MEDS: PANTOPRAZOLE 40 MG/10 ML VIAL IVP SCH (09:49)
[2021-12-08] MEDS: NOREPINEPHRINE 32 MG in SODIUM CHLORIDE 0.9% 218 ML IV SCH (11:55)
--- NOTE | 2021-12-08 13:00 | P.PN ---
Subjective Progress Note Date: 12/08/21 Principal diagnosis: Multiple drugs overdose This is a 51-year-old female with history of multiple medical problems, patient has bipolar disorder, hypertension, COPD, hypothyroidism, depression, previous history of suicidal attempt back on 09/06/21. Patient was in the hospital at the time and she was seen by psychiatry on consultation. At that time the patient had intentional overdose and she tested positive for try cyclic's, amphetamine, and marijuana. Last night, the patient came into the ER upon police requests . they were called to the house due to domestic dispute. Patient went at the time to the bathroom and came out and became very confused, speech was noted to be slurred, and she became unresponsive. Not much history could be obtained from the patient as he seems to be quite obtunded weak, she arouses briefly but she goes back to sleep and snoring. Patient does arouse with deep painful stimuli, and she seems to be able to protect her airways. She does have a good gag reflex at any rate patient was seen in the ER, and her drug screen came back positive for try cyclic, amphetamine, and positive for marijuana again. Patient did receive Narcan she also received dextrose in the ER, and not much of a change was noted. Patient had mostly dilated pupils, she is on IV fluid at 80 mL/h, on oxygen at 3 L/m, she is also on norepinephrine at 0.1 mcg/kg/m. Patient was noted to have labile blood pressure, received 2 L of fluids in the ER, her blood pressure did not improve much, hence norepinephrine was started via central line that was placed by the ER physician/right IJ central line. I saw the patient is ICU, considering that the patient had positive tricyclic and her drug screen, and considering the patient is relatively acidotic/metabolically, I started the patient on sodium bicarb drip. EKG in the ER showed mostly sinus rhythm, there was intraventricular conduction delay and nonspecific T-wave abnormality. She was also noted to have occasional premature ventricular complexes Patient was reevaluated today on 12/06/21, patient was doing fairly well yesterday, however when she woke up from her overdose yesterday, patient became extremely agitated, restless, and could not be controlled with Precedex, could not be controlled with IV medications including Ativan, I was notified about this patient and I recommended immediate intubation. He was intubated placed initially on propofol alone and she was still agitated on propofol, and could not be ventilated well, and Versed was added. At 10 mg per hour. Patient was maximized on propofol yesterday. And today she is on propofol at 40 mcg/kg/m Versed 1 mg/h. Patient was on bicarb on a long bicarb drip which I have discontinued this morning. She is on assist control rate of 24 volume 450 FiO2 50% PEEP of 8. ABG this morning showed a pO2 of 225 pCO2 40 pH of 7.46, I cut down her FiO2 down to 40%. And I have ordered discontinuation of Versed. Her chest x-ray clearly showing some component of aspiration pneumonia, hence I'm recommending that was started the patient on Zosyn. Patient is clearly not ready for any weaning, she'll be kept on mechanical ventilation, she'll be kept on propofol, and she'll be kept on GI and DVT prophylaxis, as well as antibiotics in the form of Zosyn. WBC count is 12.7 hemoglobin is 12.4 electrolytes and renal profile are normal except for low potassium of 3.0 reevaluated today on 12/07/21, patient remains in the ICU, intubated and mec hanically ventilated. Patient is on assist control rate of 2009 volume 450 FiO2 40% and PEEP is 8 her ABG showed a pO2 of 68 pCO2 of 40 0 pH of 7.50. Hence no changes were made in her ventilator settings. Patient remains on propofol at 50 mcg/kg/m, D5 4 5 at 80 mL/h, vital AF at 29 mL/h, and she is on Zosyn empirically for presumptive aspiration pneumonia. Chest x-ray continues to show right upper lobe and left lower lobe infiltrate consistent with aspiration.sputum cultures were ordered, and they are pending.WBC count today is 15.3 hemoglobin is 10.7.basic metabolic profile is normal, renal profile is normal Patient was reevaluated today on 12/08/21, remains in the ICU, intubated, mecha nically ventilated. She is on assist control rate of 2009 volume 450 FiO2 40% PEEP of 8. ABG today showed a pO2 of 74 pCO2 of 40 pH of 7.47, hence no changes were made in her ventilator settings. Patient is not on any pressors, she is hemodynamically stable. She is on propofol at 50 mcg/kg/m, D5 4 5 at 80 mL/h, she is on vital HPI 29 mL/h. Her urine output is averaging about 50 mL per hour. Sodium is coming down hence I recommended changing the IV fluids from D5 4 5 2.9 normal saline. Chest x-ray continues to show right upper lobe infiltrate and left lower lobe infiltrate, slightly improved compared to the previous chest x-ray. This is considered presumptively aspiration pneumonia. Basic metabolic profile today is normal except for a sodium of 133, renal profile is normal. Objective - Vital Signs Vital signs: Vital Signs Temp 98.2 F 12/08/21 12:00 Pulse 95 12/08/21 12:42 Resp 22 12/08/21 12:00 BP 103/72 12/08/21 12:00 Pulse Ox 96 12/08/21 12:00 Intake & Output 12/07/21 12/08/21 12/08/21 18:59 06:59 18:59 Intake Total 5298.884 6445.116 879.786 Output Total 1190 570 325 Balance 149.834 7798.116 554.786 Weight 91.7 kg Intake: IV 1216 1123 550 .9@ 10 156 143 50 Dextrose 5%-0.45% NaCl 1, 960 880 160 000 ml @ 80 mls/hr IV . [id number] [facility] Rx#:[id number] Piperacillin-Tazobactam 3 100 100 100 .375 gm In Sodium Chloride 0.9% 100 ml @ 25 mls/hr IVPB Q8HR [facility] Rx# :[id number] Sodium Chloride 0.9% 1, 240 000 ml @ 80 mls/hr IV . [id number] [facility] Rx#:[id number] Intake, IV Titration 259.295 192.116 124.786 Amount propofoL 1,000 mg In 259.295 192.116 124.786 Empty Bag 1 bag @ 5 MCG/ KG/MIN 2.372 mls/hr IV . Q24H [facility] Rx#:[id number] Tube Feeding 348 319 145 Other 90 60 Output: Urine 1190 570 325 Other: Voiding Method Indwelling Catheter Indwelling Catheter Indwelling Catheter ABP, PAP, CO, CI - Last Documented Arterial Blood Pressure 117/60 - Exam General appearance: Patient is intubated, mechanically ventilated, sedated, on propofol at 50 mcg/kg/m Head exam: Atraumatic, normocephalic endotracheal tube and orogastric tube are intact Eye exam: PERRLA, EOMI, anicteric. ENT exam: Dry mucous membranes, throat is clear. Neck exam: Supple no neck masses no JVD no stridor. Respiratory exam: Fine crackles at the bases, no rhonchi no wheezes. Cardiovascular Exam: Distant S1 and S2, no S3 gallop, no murmur. GI/Abdominal exam: Obese soft nontender, no guarding, no rebound Extremities exam: No clubbing edema or cyanosis. Neurological exam: Could not assess, fully sedated. Psychiatric exam: Could not be assessed, fully sedated Skin exam: Multiple tattoos all over, no rashes otherwise. - Labs CBC & Chem 7: 12/07/21 05:53 12/08/21 04:15 Labs: Abnormal Lab Results - Last 24 Hours (Table) 12/08/21 12/08/21 Range/Units 04:15 05:48 ABG pH 7.47 H (7.35-7.45) ABG pO2 74 L (83-108) mmHg ABG HCO3 29 H (21-25) mmol/L ABG Total CO2 31 H (19-24) mmol/L Sodium 133 L (137-145) mmol/L Glucose 123 H (74-99) mg/dL Calcium 7.6 L (8.4-10.2) mg/dL Microbiology - Last 24 Hours (Table) 12/07/21 08:20 Gram Stain - Preliminary Sputum Sputum Culture - Preliminary Assessment and Plan Assessment: Impression: Acute hypoxic respiratory failure secondary to aspiration pneumonia and possibly withdrawal from different drugs and drug overdose. Altered mental status secondary to multiple drugs overdose, mostly amphetamine and to tricyclics overdose History of depression and history of suicidal attempts in the past. Previous history of Depakote overdose Benign essential hypertension History of hypothyroidism History of underlying COPD Bipolar disorder Acute hypoxic respiratory failure secondary to drug overdose, aspiration pneumonia Recommendation: Continue ventilatory support. However will give the patient a trial of sedation interruption today, and possibly assess mental status, may or may not proceed to weaning, but this is felt to be less likely since the patient's x-ray is not showing improvement, and the patient was extremely agitated off sedation before continue empiric antibiotics, patient is on Zosyn. Sputum culture is pending. continue nutritional support/enteral feeding. GI and DVT prophylaxis. Continue to monitor the patient in the ICU Continue to monitor the patient hemodynamically patient is hemodynamically stable, not requiring any pressors. Continue to monitor electrolytes. And metabolic profile daily Again not quite ready for weaning today. But may consider assessment of mental status off sedation. continue suicidal precautions. Patient is critically ill, critical care time is over 30 minutes Time with Patient: Greater than 30
[2021-12-08 14:06] LABS: Glucose,Whole Blood 128 mg/dL (75-99)
[2021-12-08 14:16] LABS: HCT 31.4 % (34.0-46.0); HGB 10.4 gm/dL (11.4-16.0); MCH 30.9 pg (25.0-35.0); MCHC 33.2 g/dL (31.0-37.0); MCV 93.1 fL (80.0-100.0); Mean Platelet Volume 8.8; Platelet Count 215 k/uL (150-450); RBC 3.37 m/uL (3.80-5.40); RDW 14.3 % (11.5-15.5); WBC 13.9 k/uL (3.8-10.6)
[2021-12-08 18:06] LABS: Glucose,Whole Blood 103 mg/dL (75-99)
--- NOTE | 2021-12-09 00:42 | P.PN ---
Subjective Progress Note Date: 12/08/21 Patient is a 51-year-old female with a known history of asthma/COPD, hypertension, hypothyroidism, herniated disc, depression/bipolar disorder and other medical problems and previous history of overdose while brought to the ER due to altered mental status. Patient was brought to the hospital by police due to domestic dispute and the patient went to the bathroom and came out and started having slurred speech and was not speaking well EMS was called and patient was brought to the hospital. Otherwise patient was noted any symptoms prior to the episode. No nausea vomiting abdominal pain or diarrhea. No recent illnesses. Patient is currently admitted to the MICU. Currently requiring Levophed due to hypotension. UDS is positive for tree tricyclic antidepressants, amphetamines and marijuana. Chest x-ray showed no active cardiopulmonary disease. Normal heart. There is essentially complete clearing of the atelectasis and infiltrate left lung base compared to old exam. CT head and cervical spine showed negative CT scan of the brain. Spondylosis at C5-C6. Calcified posterior disc herniation with 6 mm spinal stenosis at C5-C6. No cervical spine fracture. EKG showed sinus rhythm with occasional ventricular premature complexes. Other laboratory data showed WBC 5.7 hemoglobin 11.4 platelets 218 INR 1.0 ABG showed pH 7.35 PCO2 38 and PO2 59 Sodium 135 potassium 2.8 chloride 102 BUN 16 creatinine 0.85 liver enzymes are not elevated. TSH 1.7 within normal limits. Urinalysis is negative for infection. 12/06/2021. Patient is in the MICU. Patient was agitated and could not be controlled with Precedex and IV Ativan. Patient was intubated and added Versed. . ABG showed pH 7.46 PCO2 40 PO2 225 Sodium 136 potassium 3.0 chloride 104 bicarb is 27. Bicarb drip has been discontinued. Blood sugar is 137 calcium 7.4 and albumin 3.0 BUN 30 and creatinine 0.58. WBC 12.7 hemoglobin 12.4 and platelets 235 Patient is being continued antibiotics in the form of Zosyn for possible aspiration. Chest x-ray showed bilateral pneumonia increased compared to exam yesterday. No heart failure. 12/07/2021. Patient remains on mechanical ventilator. Currently on propofol. ABG showed pH 7.5 PCO2 40 and PO2 68. Patient has been afebrile. Chest x-ray showed persistent central right lung acute infiltrate and left basilar acute infiltrate and/or atelectasis with suspected small to tiny left pleural effusion. No significant change from 1 day earlier. Laboratory pressure WBC 14.3 hemoglobin 10.7 and platelets 187 sodium 135 potassium 3.6 chloride 103 bicarb is 31 BUN 15 and creatinine 0.56 and calcium 7.5. Patient remains on antibiotics in the form of Zosyn. 12/08/2021. Patient is in MICU currently intubated and sedated with propofol. ABG showed pH 7.47 PCO2 40 and PO2 74. Patient was agitated with sedation holiday and was started back on sedation again. Continued on antibiotics in the home of Zosyn. Chest x-ray showed persistent central right lung acute infiltrate and left basi lar acute infiltrate or atelectasis with suspected small to tiny left pleural effusion. No significant change. Laboratory data showed WBC 13.9 hemoglobin 10.4 and platelets 215 Sodium 133 potassium 4.0 chloride 100 bicarb is 30 BUN 14 and creatinine 0.61 and calcium 7.6. Pulmonary is on board. Current medications reviewed. Objective - Vital Signs Vital signs: Vital Signs Temp 98.6 F 12/08/21 20:00 Pulse 87 12/08/21 22:00 Resp 20 12/08/21 22:00 BP 102/70 12/08/21 22:00 Pulse Ox 99 12/08/21 22:00 Intake & Output 12/08/21 12/08/21 12/09/21 06:59 18:59 06:59 Intake Total 8316.679 4873.000 586.665 Output Total 570 1145 395 Balance 1064.116 554.000 191.665 Weight 91.7 kg Intake: IV 1123 1090 450 .9@ 10 143 110 50 Dextrose 5%-0.45% NaCl 1, 880 160 000 ml @ 80 mls/hr IV . [id number] [facility] Rx#:[id number] Piperacillin-Tazobactam 3 100 100 .375 gm In Sodium Chloride 0.9% 100 ml @ 25 mls/hr IVPB Q8HR [facility] Rx# :[id number] Sodium Chloride 0.9% 1, 720 400 000 ml @ 80 mls/hr IV . [id number] [facility] Rx#:[id number] Intake, IV Titration 192.116 200.000 78.665 Amount propofoL 1,000 mg In 192.116 200.000 78.665 Empty Bag 1 bag @ 5 MCG/ KG/MIN 2.372 mls/hr IV . Q[facility]H [facility] Rx#:[id number] Tube Feeding 319 319 58 Other 90 Output: Urine 570 1145 395 Other: Voiding Method Indwelling Catheter Indwelling Catheter Indwelling Catheter ABP, PAP, CO, CI - Last Documented Arterial Blood Pressure 118/61 - Exam PHYSICAL EXAMINATION: Patient is lying in the bed. Patient is intubated on mechanical ventilator and sedated. HEENT: Normocephalic. Neck is supple. Pupils reactive. Nostrils clear. Oral cavity is moist. Neck reveals no JVD, carotid bruits, or thyromegaly. CHEST EXAMINATION: Trachea is central. Symmetrical expansion. Bibasilar diminished sounds. No rhonchi or wheezing.. CARDIAC: Normal S1, S2 with no gallops. No murmurs ABDOMEN: Soft. Bowel sounds present. No organomegaly. No abdominal bruits. Extremities: reveal no edema. No clubbing or cyanosis Neurologically patient is sedated and on mechanical ventilator. No gross focal deficits noted Skin: No rash or skin lesions. Psychiatric: Could not be assessed at this time. Musculoskeletal: No joint swelling or deformity. - Labs CBC & Chem 7: 12/08/21 14:00 12/08/21 04:15 Labs: Abnormal Lab Results - Last 24 Hours (Table) 12/08/21 12/08/21 12/08/21 Range/Units 04:15 05:48 14:00 WBC 13.9 H (3.8-10.6) k/uL RBC 3.37 L (3.80-5.40) m/uL Hgb 10.4 L (11.4-16.0) gm/dL Hct 31.4 L (34.0-46.0) % ABG pH 7.47 H (7.35-7.45) ABG pO2 74 L (83-108) mmHg ABG HCO3 29 H (21-25) mmol/L ABG Total CO2 31 H (19-24) mmol/L Sodium 133 L (137-145) mmol/L Glucose 123 H (74-99) mg/dL POC Glucose (mg/dL) (75-99) mg/dL Calcium 7.6 L (8.4-10.2) mg/dL 12/08/21 12/08/21 Range/Units 14:05 18:05 WBC (3.8-10.6) k/uL RBC (3.80-5.40) m/uL Hgb (11.4-16.0) gm/dL Hct (34.0-46.0) % ABG pH (7.35-7.45) ABG pO2 (83-108) mmHg ABG HCO3 (21-25) mmol/L ABG Total CO2 (19-24) mmol/L Sodium (137-145) mmol/L Glucose (74-99) mg/dL POC Glucose (mg/dL) 128 H 103 H (75-99) mg/dL Calcium (8.4-10.2) mg/dL Microbiology - Last 24 Hours (Table) 12/07/21 08:20 Gram Stain - Preliminary Sputum Sputum Culture - Preliminary Gram Neg Bacilli Assessment and Plan Assessment: Acute hypoxic respiratory failure secondary to aspiration pneumonia and possible drug withdrawal. Currently patient is on mechanical ventilator. Acute metabolic and toxic encephalopathy due to drug overdose. UDS positive for marijuana, TCA'S and amphetamines. Acute hypoxic respiratory failure secondary to drug overdose Hypotension requiring pressor support. Rule out infection. Severe hypokalemia Depression with suicide attempt and prior history of similar episode. COPD not in exacerbation Hypothyroidism Hypertension Osteoarthritis Bipolar disorder and depression DVT prophylaxis Plan: Patient will be continued on IV hydration and oxygen supplementation. Continue with antibiotics in the form of Zosyn. was requiring pressor support with Levophed. off pressors now. Replace electrolytes and monitor closely. Continue with supportive care. Pulmonary is on board. Continue with GI and DVT prophylaxis. Psychiatry was consulted for evaluation. Time with Patient: Greater than 30
[2021-12-09] MEDS: PIPERACILLIN-TAZOBACTAM 3.375 GM in SODIUM CHLORIDE 0.9% 100 ML IVPB SCH ×3 (00:47→15:37)
[2021-12-09 05:41] LABS: ABG Base Excess 6.5 mmol/L; ABG HCO3 30 mmol/L (21-25); ABG Oxygen Saturation 98.3 % (94-97); ABG PCO2 39 mmHg (35-45); ABG PO2 99 mmHg (83-108); ABG TCO2 31 mmol/L (19-24); Allen Test Performed? Yes
[2021-12-09 06:21] LABS: HCT 32.8 % (34.0-46.0); HGB 10.6 gm/dL (11.4-16.0); MCH 30.8 pg (25.0-35.0); MCHC 32.3 g/dL (31.0-37.0); MCV 95.3 fL (80.0-100.0); Platelet Count 208 k/uL (150-450); RBC 3.45 m/uL (3.80-5.40); RDW 13.8 % (11.5-15.5); WBC 11.4 k/uL (3.8-10.6)
[2021-12-09 06:22] LABS: African American GFR (CKD) >90 (>60 ml/min/1.73 sqM); Anion Gap 1 mmol/L; Blood Urea Nitrogen 13 mg/dL (7-17); Calcium 7.9 mg/dL (8.4-10.2); Carbon Dioxide 30 mmol/L (22-30); Chloride 104 mmol/L (98-107); Glucose 96 mg/dL (74-99); Non-African American GFR(CKD) >90 (>60 ml/min/1.73 sqM); Potassium 4.1 mmol/L (3.5-5.1); Sodium 135 mmol/L (137-145)
[2021-12-09 06:23] LABS: Basophils # (M) 0.23 k/uL (0-0.2); Eosinophils # (M) 0.57 k/uL (0-0.7); Lymphocytes # (M) 1.94 k/uL (1.0-4.8); Monocytes # (M) 0.57 k/uL (0-1.0); Neutrophils # (M) 8.09 k/uL (1.3-7.7); Neutrophils % (M) 71 %; Nucleated Red Blood Cells 0 /100 WBC (0-0); RBC Morphology Normal; Total Cells Counted 100
[2021-12-09] MEDS: ENOXAPARIN 40 MG/0.4 ML SYRINGE SQ SCH (08:11)
[2021-12-09] MEDS: CHLORHEXIDINE GLUCONATE 15 ML CUP MUCOUS MEM SCH ×2 (08:11→21:09)
[2021-12-09] MEDS: PANTOPRAZOLE 40 MG/10 ML VIAL IVP SCH (08:12)
--- NOTE | 2021-12-09 08:13 | XR ---
EXAMINATION TYPE: XR chest 1V portable DATE OF EXAM: 12/09/2021 COMPARISON: X-ray dated 12/08/2021 HISTORY: Tube placement TECHNIQUE: Single frontal view of the chest is obtained. FINDINGS: The tip of endotracheal tube is about 3.3 cm proximal to the mason. Right central venous line with t he tip is seen within the right atrium. NG tube with tip is inferior to the diaphragm. Unchanged subtle areas of pulmonary opacities and suspected left pleural effusion. Unchanged cardiome diastinal silhouette and bony thoracic cage. IMPRESSION: As above.
[2021-12-09] MEDS: IPRATROPIUM-ALBUTEROL 3 ML NEB INHALATION SCH ×4 (08:15→19:12)
[2021-12-09] MEDS ORDERED: HYDROcodone/APAP 10-325MG 1 EACH TAB PO PRN (08:29)
--- NOTE | 2021-12-09 08:30 | P.PN ---
Subjective Progress Note Date: 12/09/21 This is a 51-year-old female with history of multiple medical problems, patient has bipolar disorder, hypertension, COPD, hypothyroidism, depression, previous history of suicidal attempt back on 09/06/21. Patient was in the hospital at the time and she was seen by psychiatry on consultation. At that time the patient had intentional overdose and she tested positive for try cyclic's, amphetamine, and marijuana. Last night, the patient came into the ER upon police requests . they were called to the house due to domestic dispute. Patient went at the time to the bathroom and came out and became very confused, speech was noted to be slurred, and she became unresponsive. Not much history could be obtained from the patient as he seems to be quite obtunded weak, she arouses briefly but she goes back to sleep and snoring. Patient does arouse with deep painful stimuli, and she seems to be able to protect her airways. She does have a good gag reflex at any rate patient was seen in the ER, and her drug screen came back positive for try cyclic, amphetamine, and positive for marijuana again. Patient did receive Narcan she also received dextrose in the ER, and not much of a change was noted. Patient had mostly dilated pupils, she is on IV fluid at 80 mL/h, on oxygen at 3 L/m, she is also on norepinephrine at 0.1 mcg/kg/m. Patient was noted to have labile blood pressure, received 2 L of fluids in the ER, her blood pressure did not improve much, hence norepinephrine was started via central line that was placed by the ER physician/right IJ central line. I saw the patient is ICU, considering that the patient had positive tricyclic and her drug screen, and considering the patient is relatively acidotic/metabolically, I started the patient on sodium bicarb drip. EKG in the ER showed mostly sinus rhythm, there was intraventricular conduction delay and nonspecific T-wave abnormality. She was also noted to have occasional premature ventricular complexes Patient was reevaluated today on 12/06/21, patient was doing fairly well yesterday, however when she woke up from her overdose yesterday, patient became extremely agitated, restless, and could not be controlled with Precedex, could not be controlled with IV medications including Ativan, I was notified about this patient and I recommended immediate intubation. He was intubated placed initially on propofol alone and she was still agitated on propofol, and could not be ventilated well, and Versed was added. At 10 mg per hour. Patient was maximized on propofol yesterday. And today she is on propofol at 40 mcg/kg/m Versed 1 mg/h. Patient was on bicarb on a long bicarb drip which I have discontinued this morning. She is on assist control rate of 24 volume 450 FiO2 50% PEEP of 8. ABG this morning showed a pO2 of 225 pCO2 40 pH of 7.46, I cut down her FiO2 down to 40%. And I have ordered discontinuation of Versed. Her chest x-ray clearly showing some component of aspiration pneumonia, hence I'm recommending that was started the patient on Zosyn. Patient is clearly not ready for any weaning, she'll be kept on mechanical ventilation, she'll be kept on propofol, and she'll be kept on GI and DVT prophylaxis, as well as antibiotics in the form of Zosyn. WBC count is 12.7 hemoglobin is 12.4 electrolytes and renal profile are normal except for low potassium of 3.0 reevaluated today on 12/07/21, patient remains in the ICU, intubated and mechanically ventilated. Patient is on assist control rate of 2009 volume 450 FiO2 40% and PEEP is 8 her ABG showed a pO2 of 68 pCO2 of 40 0 pH of 7.50. Hence no changes were made in her ventilator settings. Patient remains on propofol at 50 mcg/kg/m, D5 4 5 at 80 mL/h, vital AF at 29 mL/h, and she is on Zosyn empirically for presumptive aspiration pneumonia. Chest x-ray continues to show right upper lobe and left lower lobe infiltrate consistent with aspiration.sputum cultures were ordered, and they are pending.WBC count today is 15.3 hemoglobin is 10.7.basic metabolic profile is normal, renal profile is normal Patient was reevaluated today on 12/08/21, remains in the ICU, intubated, mechanically ventilated. She is on assist control rate of 2009 volume 450 FiO2 40% PEEP of 8. ABG today showed a pO2 of 74 pCO2 of 40 pH of 7.47, hence no changes were made in her ventilator settings. Patient is not on any pressors, she is hemodynamically stable. She is on propofol at 50 mcg/kg/m, D5 4 5 at 80 mL/h, she is on vital HPI 29 mL/h. Her urine output is averaging about 50 mL per hour. Sodium is coming down hence I recommended changing the IV fluids from D5 4 5 2.9 normal saline. Chest x-ray continues to show right upper lobe infiltrate and left lower lobe infiltrate, slightly improved compared to the previous chest x-ray. This is considered presumptively aspiration pneumonia. Basic metabolic profile today is normal except for a sodium of 133, renal profile is normal. On today's evaluation of 12/09/2021, the patient remains intubated on a mecha nical ventilator. The patient is sedated on propofol which is running at 60 mg/kg per minute. The patient remains on a mechanical ventilator on assist control mode of mechanical ventilation at the rate of 20 with a tidal volume of 450 mL with an FiO2 of 40% with a PEEP of 8. The chest x-ray shows some clearing of the right upper lobe pneumonia and the patient has some residual effusion on the left and ET tube is in a good location. Otherwise, no other acute abnormalities are noted. The patient was going gram-negative bacillus in the sputum and the patient is currently on IV Zosyn. She is afebrile. Aspiration was suspected and the patient was covered with IV Zosyn. The patient's white cell count is at 11.4 with a hemoglobin of 10.6. The blood gases from today shows a pH of 7.5 with a pCO2 of 39 and pO2 of 99. The peak airway pressures around 25. She is hemodynamically stable on no pressors. She is receiving enteral feeding for nutritional support and the patient is currently on vital high protein at the rate of 29 mL an hour. The rest of the metabolic profile is essentially within normal limits. No seizure activity has been noted. The CAT scan of the brain that was done at time of admission was essentially within normal limits. The patient is known to have COPD, hy pertension, hypothyroidism and previous history of depression. She has had previous suicide attempts in the past. Her current cardiac rhythm is sinus. The patient had an intentional overdose and she tested positive for tricyclics, marijuana and amphetamine. Objective - Vital Signs Vital signs: Vital Signs Temp 98.0 F 12/09/21 04:00 Pulse 80 12/09/21 08:15 Resp 20 12/09/21 07:00 BP 105/78 12/09/21 07:00 Pulse Ox 98 12/09/21 07:00 FiO2 40 12/09/21 07:58 Intake & Output 12/08/21 12/09/21 12/09/21 18:59 06:59 18:59 Intake Total 3962.387 4457.351 Output Total 1145 700 Balance 281.960 2388.351 Weight 92.6 kg Intake: IV 1090 1170 .9@ 10 110 130 Dextrose 5%-0.45% NaCl 1, 160 000 ml @ 80 mls/hr IV . [id number] [facility] Rx#:[id number] Piperacillin-Tazobactam 3 100 .375 gm In Sodium Chloride 0.9% 100 ml @ 25 mls/hr IVPB Q8HR [facility] Rx# :[id number] Sodium Chloride 0.9% 1, 720 1040 000 ml @ 80 mls/hr IV . [id number] [facility] Rx#:[id number] Intake, IV Titration 200.000 272.351 Amount propofoL 1,000 mg In 200.000 272.351 Empty Bag 1 bag @ 5 MCG/ KG/MIN 2.372 mls/hr IV . Q24H [facility] Rx#:[id number] Tube Feeding 319 377 Other 90 Output: Urine 1145 700 Other: Voiding Method Indwelling Catheter Indwelling Catheter ABP, PAP, CO, CI - Last Documented Arterial Blood Pressure 107/63 - Exam General appearance: Patient is intubated, mechanically ventilated, sedated, on propofol at 60 mcg/kg/m Head exam: Atraumatic, normocephalic endotracheal tube and orogastric tube are intact Eye exam: PERRLA, EOMI, anicteric. ENT exam: Dry mucous membranes, throat is clear. Neck exam: Supple no neck masses no JVD no stridor. Respiratory exam: Fine crackles at the bases, no rhonchi no wheezes. Cardiovascular Exam: Distant S1 and S2, no S3 gallop, no murmur. GI/Abdominal exam: Obese soft nontender, no guarding, no rebound Extremities exam: No clubbing edema or cyanosis. Neurological exam: Could not assess, fully sedated. She however grimaces to painful stimulation and she is withdrawing her arms to painful stimulation in all 4 extremities. Psychiatric exam: Could not be assessed, fully sedated Skin exam: Multiple tattoos all over, no rashes otherwise. - Labs CBC & Chem 7: 12/09/21 03:10 12/09/21 03:10 Labs: Abnormal Lab Results - Last 24 Hours (Table) 12/08/21 12/08/21 12/08/21 Range/Units 14:00 14:05 18:05 WBC 13.9 H (3.8-10.6) k/uL RBC 3.37 L (3.80-5.40) m/uL Hgb 10.4 L (11.4-16.0) gm/dL Hct 31.4 L (34.0-46.0) % Neutrophils # (Manual) (1.3-7.7) k/uL Basophils # (Manual) (0-0.2) k/uL ABG pH (7.35-7.45) ABG HCO3 (21-25) mmol/L ABG Total CO2 (19-24) mmol/L ABG O2 Saturation (94-97) % Sodium (137-145) mmol/L Creatinine (0.52-1.04) mg/dL POC Glucose (mg/dL) 128 H 103 H (75-99) mg/dL Calcium (8.4-10.2) mg/dL 12/09/21 12/09/21 12/09/21 Range/Units 03:10 03:10 05:38 WBC 11.4 H (3.8-10.6) k/uL RBC 3.45 L (3.80-5.40) m/uL Hgb 10.6 L (11.4-16.0) gm/dL Hct 32.8 L (34.0-46.0) % Neutrophils # (Manual) 8.09 H (1.3-7.7) k/uL Basophils # (Manual) 0.23 H (0-0.2) k/uL ABG pH 7.50 H (7.35-7.45) ABG HCO3 30 H (21-25) mmol/L ABG Total CO2 31 H (19-24) mmol/L ABG O2 Saturation 98.3 H (94-97) % Sodium 135 L (137-145) mmol/L Creatinine 0.51 L (0.52-1.04) mg/dL POC Glucose (mg/dL) (75-99) mg/dL Calcium 7.9 L (8.4-10.2) mg/dL Microbiology - Last 24 Hours (Table) 12/07/21 08:20 Gram Stain - Preliminary Sputum Sputum Culture - Preliminary Gram Neg Bacilli Assessment and Plan Plan: Acute hypoxic respiratory failure secondary to aspiration pneumonia and possibly withdrawal from different drugs and drug overdose. The sputum is positive for Gram neg bacillus and the patient is on Zosyn. The chest x-ray was noted. The blood gas was noted. The patient is oxygenating adequately for now. Awaiting final cultures and the patient will be given IV Zosyn for now. Respiratory failure as well as related to pneumonia in addition to drug overdose. Altered mental status secondary to multiple drugs overdose, mostly amphetamine and to tricyclics overdose History of depression and history of suicidal attempts in the past. The patient is demented on a combination of Cymbalta, Lamictal and Klonopin on outpatient basis. The patient is also on Vraylar for her chronic psychiatric disorder Previous history of Depakote overdose Benign essential hypertension History of hypothyroidism History of underlying COPD Bipolar disorder RLS Chronic pain disorder on norco ADD/ADHD Cervical cancer post hysterectomy Recommendation: Continue ventilatory support. Drop PEEP to 5 Sadation Holiday Assess mental status, may proceed to weaning, especially the patient remains stable and she shows adequate mentation. continue empiric antibiotics, patient is on Zosyn. Sputum culture is pending. There is gram-negative bacillus in the sputum. continue nutritional support/enteral feeding. GI and DVT prophylaxis. Continue to monitor the patient in the ICU Continue to monitor the patient hemodynamically patient is hemodynamically stable, not requiring any pressors. Continue to monitor electrolytes. continue suicidal precautions. Restart the patient on her Lamictal probably for mood stabilization at 50 mg by mouth daily. She'll be also started on Cymbalta 60 mg by mouth daily and Klonopin will be started later stage once the patient is extubated. We can start also Neurontin 600 mg by mouth 3 times a day and Mirapex 1 mg at bedtime. Definitely need a psychiatric evaluation post extubation Patient is critically ill, critical care time is over 30 minutes Time with Patient: Greater than 30
[2021-12-09] MEDS: DULoxetine HCL 60 MG CAPSULE.DR PO SCH (09:16)
[2021-12-09] MEDS: GABAPENTIN 300 MG CAP PO SCH ×3 (09:19→21:09)
[2021-12-09] MEDS: lamoTRIgine 25 MG TAB PO SCH (09:19)
[2021-12-09] MEDS: SODIUM CHLORIDE 0.9% 1,000 ML IV SCH ×2 (11:10→23:15)
[2021-12-09 11:46] LABS: Glucose,Whole Blood 109 mg/dL (75-99)
[2021-12-09] MEDS: NOREPINEPHRINE 32 MG in SODIUM CHLORIDE 0.9% 218 ML IV SCH (15:32)
[2021-12-09 18:05] LABS: Glucose,Whole Blood 94 mg/dL (75-99)
--- NOTE | 2021-12-09 19:45 | P.PN ---
Subjective Progress Note Date: 12/09/21 Patient is a 51-year-old female with a known history of asthma/COPD, hypertension, hypothyroidism, herniated disc, depression/bipolar disorder and other medical problems and previous history of overdose while brought to the ER due to altered mental status. Patient was brought to the hospital by police due to domestic dispute and the patient went to the bathroom and came out and started having slurred speech and was not speaking well EMS was called and patient was brought to the hospital. Otherwise patient was noted any symptoms prior to the episode. No nausea vomiting abdominal pain or diarrhea. No recent illnesses. Patient is currently admitted to the MICU. Currently requiring Levophed due to hypotension. UDS is positive for tree tricyclic antidepressants, amphetamines and marijuana. Chest x-ray showed no active cardiopulmonary disease. Normal heart. There is essentially complete clearing of the atelectasis and infiltrate left lung base compared to old exam. CT head and cervical spine showed negative CT scan of the brain. Spondylosis at C5-C6. Calcified posterior disc herniation with 6 mm spinal stenosis at C5-C6. No cervical spine fracture. EKG showed sinus rhythm with occasional ventricular premature complexes. Other laboratory data showed WBC 5.7 hemoglobin 11.4 platelets 218 INR 1.0 ABG showed pH 7.35 PCO2 38 and PO2 59 Sodium 135 potassium 2.8 chloride 102 BUN 16 creatinine 0.85 liver enzymes are not elevated. TSH 1.7 within normal limits. Urinalysis is negative for infection. 12/06/2021. Patient is in the MICU. Patient was agitated and could not be controlled with Precedex and IV Ativan. Patient was intubated and added Versed. . ABG showed pH 7.46 PCO2 40 PO2 225 Sodium 136 potassium 3.0 chloride 104 bicarb is 27. Bicarb drip has been discontinued. Blood sugar is 137 calcium 7.4 and albumin 3.0 BUN 30 and creatinine 0.58. WBC 12.7 hemoglobin 12.4 and platelets 235 Patient is being continued antibiotics in the form of Zosyn for possible aspirat ion. Chest x-ray showed bilateral pneumonia increased compared to exam yesterday. No heart failure. 12/07/2021. Patient remains on mechanical ventilator. Currently on propofol. ABG showed pH 7.5 PCO2 40 and PO2 68. Patient has been afebrile. Chest x-ray showed persistent central right lung acute infiltrate and left basilar acute infiltrate and/or atelectasis with suspected small to tiny left pleural effusion. No significant change from 1 day earlier. Laboratory pressure WBC 14.3 hemoglobin 10.7 and platelets 187 sodium 135 potassium 3.6 chloride 103 bicarb is 31 BUN 15 and creatinine 0.56 and calcium 7.5. Patient remains on antibiotics in the form of Zosyn. 12/08/2021. Patient is in MICU currently intubated and sedated with propofol. ABG showed pH 7.47 PCO2 40 and PO2 74. Patient was agitated with sedation holiday and was started back on sedation again. Continued on antibiotics in the home of Zosyn. Chest x-ray showed persistent central right lung acute infiltrate and left ba silar acute infiltrate or atelectasis with suspected small to tiny left pleural effusion. No significant change. Laboratory data showed WBC 13.9 hemoglobin 10.4 and platelets 215 Sodium 133 potassium 4.0 chloride 100 bicarb is 30 BUN 14 and creatinine 0.61 and calcium 7.6. Pulmonary is on board. 12/09/2021 Patient is seen in follow-up this morning and per nursing staff attempting sedation holiday although patient is not following any commands and continues to be altered and confused and is currently being re-sedated. Patient is maintained on mechanical ventilation with an FiO2 40% and PEEP is 5. Pulmonary and psychiatry following. Patient is also continued on IV antibiotics. Patient is afebrile. Review of systems are unable to obtain as patient is intubated and sedated Active Medications Albuterol/Ipratropium (Ipratropium-Albuterol 3 Ml Neb) 3 ml INHALATION RT-QID [facility] Last Admin: 12/09/21 12:23 Dose: Not Given Chlorhexidine Gluconate (Chlorhexidine Gluconate 15 Ml Cup) 15 ml MUCOUS MEM BID [facility] Last Admin: 12/09/21 08:11 Dose: 15 ml Duloxetine HCl (Duloxetine Hcl 60 Mg Capsule.Dr) 60 mg PO DAILY [facility] Last Admin: 12/09/21 09:16 Dose: Not Given Enoxaparin Sodium (Enoxaparin 40 Mg/0.4 Ml Syringe) 40 mg SQ DAILY [facility] Last Admin: 12/09/21 08:11 Dose: 40 mg Gabapentin (Gabapentin 300 Mg Cap) 600 mg PO TID [facility] Last Admin: 12/09/21 09:19 Dose: 600 mg Norepinephrine Bitartrate 32 (mg/ Sodium Chloride) 250 mls @ 1.853 mls/hr IV . Q24H [facility]; Protocol Last Admin: 12/08/21 11:55 Dose: Not Given Propofol 1,000 mg/ IV Solution 100 mls @ 2.372 mls/hr IV .Q24H [facility]; Protocol Last Titration: 12/09/21 13:00 Dose: 40 mcg/kg/min, 18.975 mls/hr Piperacillin Sod/Tazobactam (Sod 3.375 gm/ Sodium Chloride) 100 mls @ 25 mls/hr IVPB Q8HR [facility]; Protocol Last Admin: 12/09/21 08:12 Dose: 25 mls/hr Sodium Chloride (Saline 0.9%) 1,000 mls @ 80 mls/hr IV .[id number] [facility] Last Admin: 12/09/21 11:10 Dose: 80 mls/hr Lamotrigine (Lamotrigine 25 Mg Tab) 50 mg PO QAM [facility] Last Admin: 12/09/21 09:19 Dose: 50 mg Miscellaneous Information (Potassium Replacement Protocol 1 Each Misc) 1 each MISCELLANE DAILY PRN; Protocol PRN Reason: Per Protocol Miscellaneous Information (Magnesium Replacement Protocol 1 Each Misc) 1 each MISCELLANE DAILY PRN; Protocol PRN Reason: Per Protocol Naloxone HCl (Naloxone 0.4 Mg/Ml 1 Ml Vial) 0.2 mg IV Q2M PRN PRN Reason: Opioid Reversal Pantoprazole Sodium (Pantoprazole 40 Mg/10 Ml Vial) 40 mg IVP DAILY [facility] Last Admin: 12/09/21 08:12 Dose: 40 mg Pramipexole Dihydrochloride (Pramipexole 1 Mg Tab) 1 mg PO HS [facility] Physical exam: Patient is intubated on mechanical ventilator and sedated. HEENT: Normocephalic. Neck is supple. Pupils reactive. Nostrils clear. Oral cavity is moist. Neck reveals no JVD, carotid bruits, or thyromegaly. CHEST EXAMINATION: Trachea is central. Symmetrical expansion. Bibasilar diminished sounds. No rhonchi or wheezing.. CARDIAC: Normal S1, S2 with no gallops. No murmurs ABDOMEN: Soft. Bowel sounds present. No organomegaly. No abdominal bruits. Extremities: reveal no edema. No clubbing or cyanosis Neurologically patient is sedated and on mechanical ventilator. No gross focal deficits noted, sedation holiday and patient is not following commands Skin: No rash or skin lesions. Psychiatric: Could not be assessed at this time. Musculoskeletal: No joint swelling or deformity. Assessment: Acute hypoxic respiratory failure secondary to aspiration pneumonia and possible drug withdrawal. Currently patient is on mechanical ventilator. Acute metabolic and toxic encephalopathy due to drug overdose. UDS positive for marijuana, TCA'S and amphetamines. Acute hypoxic respiratory failure secondary to drug overdose Hypotension requiring pressor support. Rule out infection. Severe hypokalemia, replaced Depression with suicide attempt and prior history of similar episode. COPD not in exacerbation Hypothyroidism Hypertension Osteoarthritis Bipolar disorder and depression DVT prophylaxis Full code Plan: Patient will be continued on IV hydration and oxygen supplementation. Continue with antibiotics in the form of Zosyn. Continues off pressors and continues to be sedated. Weaning for extubation parameters although patient becomes agitated and not following commands during sedation holiday and will resume propofol. Psychiatry following as well as pulmonary. Prognosis is guarded at this time. The impression and plan of care has been dictated by Kaley Salinas, Nurse Practitioner as directed. Dr. Kalli MD I have performed a history and examination and MDM of this patient, discussed the same with the dictator, and agree with the dictator's assessment and plan as written ,documented as a scribe. Based on total visit time, I have performed more than 50% of the visit. Objective - Vital Signs Vital signs: Vital Signs Temp 98.4 F 12/09/21 08:00 Pulse 83 12/09/21 09:00 Resp 20 12/09/21 09:00 BP 114/82 12/09/21 09:00 Pulse Ox 99 12/09/21 09:00 FiO2 40 12/09/21 08:00 Intake & Output 12/08/21 12/09/21 12/09/21 18:59 06:59 18:59 Intake Total 9097.050 0811.351 288 Output Total 1145 700 400 Balance 714.165 3276.351 -112 Weight 92.6 kg Intake: IV 1090 1170 200 .9@ 10 110 130 20 Dextrose 5%-0.45% NaCl 1, 160 000 ml @ 80 mls/hr IV . [id number] [facility] Rx#:[id number] Piperacillin-Tazobactam 3 100 100 .375 gm In Sodium Chloride 0.9% 100 ml @ 25 mls/hr IVPB Q8HR [facility] Rx# :[id number] Sodium Chloride 0.9% 1, 720 1040 80 000 ml @ 80 mls/hr IV . [id number] [facility] Rx#:[id number] Intake, IV Titration 200.000 272.351 Amount propofoL 1,000 mg In 200.000 272.351 Empty Bag 1 bag @ 5 MCG/ KG/MIN 2.372 mls/hr IV . Q24H [facility] Rx#:[id number] Tube Feeding 319 377 58 Other 90 30 Output: Urine 1145 700 400 Other: Voiding Method Indwelling Catheter Indwelling Catheter Indwelling Catheter ABP, PAP, CO, CI - Last Documented Arterial Blood Pressure 125/72 - Labs CBC & Chem 7: 12/09/21 03:10 12/09/21 03:10 Labs: Abnormal Lab Results - Last 24 Hours (Table) 12/08/21 12/08/21 12/08/21 Range/Units 14:00 14:05 18:05 WBC 13.9 H (3.8-10.6) k/uL RBC 3.37 L (3.80-5.40) m/uL Hgb 10.4 L (11.4-16.0) gm/dL Hct 31.4 L (34.0-46.0) % Neutrophils # (Manual) (1.3-7.7) k/uL Basophils # (Manual) (0-0.2) k/uL ABG pH (7.35-7.45) ABG HCO3 (21-25) mmol/L ABG Total CO2 (19-24) mmol/L ABG O2 Saturation (94-97) % Sodium (137-145) mmol/L Creatinine (0.52-1.04) mg/dL POC Glucose (mg/dL) 128 H 103 H (75-99) mg/dL Calcium (8.4-10.2) mg/dL 12/09/21 12/09/21 12/09/21 Range/Units 03:10 03:10 05:38 WBC 11.4 H (3.8-10.6) k/uL RBC 3.45 L (3.80-5.40) m/uL Hgb 10.6 L (11.4-16.0) gm/dL Hct 32.8 L (34.0-46.0) % Neutrophils # (Manual) 8.09 H (1.3-7.7) k/uL Basophils # (Manual) 0.23 H (0-0.2) k/uL ABG pH 7.50 H (7.35-7.45) ABG HCO3 30 H (21-25) mmol/L ABG Total CO2 31 H (19-24) mmol/L ABG O2 Saturation 98.3 H (94-97) % Sodium 135 L (137-145) mmol/L Creatinine 0.51 L (0.52-1.04) mg/dL POC Glucose (mg/dL) (75-99) mg/dL Calcium 7.9 L (8.4-10.2) mg/dL Microbiology - Last 24 Hours (Table) 12/07/21 08:20 Gram Stain - Preliminary Sputum Sputum Culture - Preliminary Gram Neg Bacilli
[2021-12-09] MEDS: PRAMIPEXOLE 1 MG TAB PO SCH (21:10)
[2021-12-10] MEDS: PIPERACILLIN-TAZOBACTAM 3.375 GM in SODIUM CHLORIDE 0.9% 100 ML IVPB SCH ×4 (00:16→23:20)
[2021-12-10 00:39] LABS: Glucose,Whole Blood 112 mg/dL (75-99)
[2021-12-10 05:07] LABS: ABG Base Excess 5.6 mmol/L; ABG HCO3 29 mmol/L (21-25); ABG Oxygen Saturation 97.8 % (94-97); ABG PCO2 36 mmHg (35-45); ABG PH 7.51 (7.35-7.45); ABG PO2 93 mmHg (83-108); ABG TCO2 30 mmol/L (19-24); Allen Test Performed? Yes
[2021-12-10 06:02] LABS: Glucose,Whole Blood 110 mg/dL (75-99)
--- NOTE | 2021-12-10 08:04 | XR ---
EXAMINATION TYPE: XR chest 1V portable DATE OF EXAM: 12/10/2021 COMPARISON: X-ray dated 12/09/2021 HISTORY: Tube placement TECHNIQUE: Single frontal view of the chest is obtained. FINDINGS: The tip of endotracheal tube is about 3.1 cm proximal to the mason. NG tube is seen with the tip is below the diaphragm and outside the [id number]. Right central venous line with the tip is within t he right atrium. Persistent patchy opacity in the right upper to midlung zone, slightly more apparent today. Suspected left retrocardiac opacity, associated infection cannot be excluded, please correlate clinically. Per sistent left pleural effusion. Unchanged cardiomediastinal silhouette and bony thoracic cage. IMPRESSION: As above.
[2021-12-10] MEDS: IPRATROPIUM-ALBUTEROL 3 ML NEB INHALATION SCH ×4 (08:28→19:55)
[2021-12-10] MEDS: PANTOPRAZOLE 40 MG/10 ML VIAL IVP SCH (08:51)
[2021-12-10] MEDS: ENOXAPARIN 40 MG/0.4 ML SYRINGE SQ SCH (08:51)
[2021-12-10] MEDS: lamoTRIgine 25 MG TAB PO SCH (08:51)
[2021-12-10] MEDS: DULoxetine HCL 60 MG CAPSULE.DR PO SCH (08:52)
[2021-12-10] MEDS: GABAPENTIN 300 MG CAP PO SCH ×3 (08:52→22:01)
[2021-12-10] MEDS: CHLORHEXIDINE GLUCONATE 15 ML CUP MUCOUS MEM SCH (08:52)
[2021-12-10] MEDS ORDERED: clonazePAM 1 MG TAB PO PRN (08:59)
--- NOTE | 2021-12-10 09:08 | P.PN ---
Subjective Progress Note Date: 12/10/21 This is a 51-year-old female with history of multiple medical problems, patient has bipolar disorder, hypertension, COPD, hypothyroidism, depression, previous history of suicidal attempt back on 09/06/21. Patient was in the hospital at the time and she was seen by psychiatry on consultation. At that time the patient had intentional overdose and she tested positive for try cyclic's, amphetamine, and marijuana. Last night, the patient came into the ER upon police requests . they were called to the house due to domestic dispute. Patient went at the time to the bathroom and came out and became very confused, speech was noted to be slurred, and she became unresponsive. Not much history could be obtained from the patient as he seems to be quite obtunded weak, she arouses briefly but she goes back to sleep and snoring. Patient does arouse with deep painful stimuli, and she seems to be able to protect her airways. She does have a good gag reflex at any rate patient was seen in the ER, and her drug screen came back positive for try cyclic, amphetamine, and positive for marijuana again. Patient did receive Narcan she also received dextrose in the ER, and not much of a change was noted. Patient had mostly dilated pupils, she is on IV fluid at 80 mL/h, on oxygen at 3 L/m, she is also on norepinephrine at 0.1 mcg/kg/m. Patient was noted to have labile blood pressure, received 2 L of fluids in the ER, her blood pressure did not improve much, hence norepinephrine was started via central line that was placed by the ER physician/right IJ central line. I saw the patient is ICU, considering that the patient had positive tricyclic and her drug screen, and considering the patient is relatively acidotic/metabolically, I started the patient on sodium bicarb drip. EKG in the ER showed mostly sinus rhythm, there was intraventricular conduction delay and nonspecific T-wave abnormality. She was also noted to have occasional premature ventricular complexes Patient was reevaluated today on 12/06/21, patient was doing fairly well yesterday, however when she woke up from her overdose yesterday, patient became extremely agitated, restless, and could not be controlled with Precedex, could not be controlled with IV medications including Ativan, I was notified about this patient and I recommended immediate intubation. He was intubated placed initially on propofol alone and she was still agitated on propofol, and could not be ventilated well, and Versed was added. At 10 mg per hour. Patient was maximized on propofol yesterday. And today she is on propofol at 40 mcg/kg/m Versed 1 mg/h. Patient was on bicarb on a long bicarb drip which I have discontinued this morning. She is on assist control rate of 24 volume 450 FiO2 50% PEEP of 8. ABG this morning showed a pO2 of 225 pCO2 40 pH of 7.46, I cut down her FiO2 down to 40%. And I have ordered discontinuation of Versed. Her chest x-ray clearly showing some component of aspiration pneumonia, hence I'm recommending that was started the patient on Zosyn. Patient is clearly not ready for any weaning, she'll be kept on mechanical ventilation, she'll be kept on propofol, and she'll be kept on GI and DVT prophylaxis, as well as antibiotics in the form of Zosyn. WBC count is 12.7 hemoglobin is 12.4 electrolytes and renal profile are normal except for low potassium of 3.0 reevaluated today on 12/07/21, patient remains in the ICU, intubated and mechanically ventilated. Patient is on assist control rate of 2009 volume 450 FiO2 40% and PEEP is 8 her ABG showed a pO2 of 68 pCO2 of 40 0 pH of 7.50. Hence no changes were made in her ventilator settings. Patient remains on propofol at 50 mcg/kg/m, D5 4 5 at 80 mL/h, vital AF at 29 mL/h, and she is on Zosyn empirically for presumptive aspiration pneumonia. Chest x-ray continues to show right upper lobe and left lower lobe infiltrate consistent with aspiration.sputum cultures were ordered, and they are pending.WBC count today is 15.3 hemoglobin is 10.7.basic metabolic profile is normal, renal profile is normal Patient was reevaluated today on 12/08/21, remains in the ICU, intubated, mechanically ventilated. She is on assist control rate of 2009 volume 450 FiO2 40% PEEP of 8. ABG today showed a pO2 of 74 pCO2 of 40 pH of 7.47, hence no changes were made in her ventilator settings. Patient is not on any pressors, she is hemodynamically stable. She is on propofol at 50 mcg/kg/m, D5 4 5 at 80 mL/h, she is on vital HPI 29 mL/h. Her urine output is averaging about 50 mL per hour. Sodium is coming down hence I recommended changing the IV fluids from D5 4 5 2.9 normal saline. Chest x-ray continues to show right upper lobe infiltrate and left lower lobe infiltrate, slightly improved compared to the previous chest x-ray. This is considered presumptively aspiration pneumonia. Basic metabolic profile today is normal except for a sodium of 133, renal profile is normal. On today's evaluation of 12/09/2021, the patient remains intubated on a mecha nical ventilator. The patient is sedated on propofol which is running at 60 mg/kg per minute. The patient remains on a mechanical ventilator on assist control mode of mechanical ventilation at the rate of 20 with a tidal volume of 450 mL with an FiO2 of 40% with a PEEP of 8. The chest x-ray shows some clearing of the right upper lobe pneumonia and the patient has some residual effusion on the left and ET tube is in a good location. Otherwise, no other acute abnormalities are noted. The patient was going gram-negative bacillus in the sputum and the patient is currently on IV Zosyn. She is afebrile. Aspiration was suspected and the patient was covered with IV Zosyn. The patient's white cell count is at 11.4 with a hemoglobin of 10.6. The blood gases from today shows a pH of 7.5 with a pCO2 of 39 and pO2 of 99. The peak airway pressures around 25. She is hemodynamically stable on no pressors. She is receiving enteral feeding for nutritional support and the patient is currently on vital high protein at the rate of 29 mL an hour. The rest of the metabolic profile is essentially within normal limits. No seizure activity has been noted. The CAT scan of the brain that was done at time of admission was essentially within normal limits. The patient is known to have COPD, hy pertension, hypothyroidism and previous history of depression. She has had previous suicide attempts in the past. Her current cardiac rhythm is sinus. The patient had an intentional overdose and she tested positive for tricyclics, marijuana and amphetamine. On today's evaluation of 12/10/2021 - patient for a follow-up. The patient remains intubated on a mechanical ventilator. The patient this morning is on propofol. The dose being titrated for sedation. Give the patient sedation holiday yesterday which she failed. She was getting very agitated. Based on that, she was kept on propofol throughout the night and this morning she is on propofol running at 60 mcg/kg per minute. No seizure activity. No focal neurological deficits. She is on a mechanical ventilator, assist control mode at the rate of 20, with a tidal volume of 450, FiO2 of 35% with a PEEP of 5. No significant orotracheal secretions. Chest x-ray from today showing a limited right upper lobe pulmonary infiltrate and the patient had a sputum sample that was positive for Klebsiella and the patient remains on IV Zosyn. The blood gases showing a component of respiratory alkalosis. Morning blood gases from today is showing a pH of 7.51 with a pCO2 of 36 and pO2 of 93. The patient is on IV fluids currently at 80 mL an hour. She has an adequate urine output. Electrodes are all within normal limits. Note that the patient is a professional drug overdose patient and she tested positive for tricyclics, marijuana and amphetamine. She is receiving enteral feeding for nutritional support and currently she is on vital high protein at the rate of 29 mL an hour. No emesis. No fever. Cardiac rhythm is sinus. No other significant events overnight. Objective - Vital Signs Vital signs: Vital Signs Temp 98.3 F 12/10/21 00:00 Pulse 90 12/10/21 08:39 Resp 20 12/10/21 01:00 BP 122/83 12/10/21 01:00 Pulse Ox 97 12/10/21 01:00 FiO2 35 12/10/21 08:00 Intake & Output 12/09/21 12/10/21 12/10/21 18:59 06:59 18:59 Intake Total 1841.471 8910.000 249 Output Total 1780 3410 850 Balance -247.381 -1673.000 -601 Weight 92.6 kg 88.5 kg Intake: IV 870 1170 90 .9@ 10 110 130 10 Piperacillin-Tazobactam 3 200 .375 gm In Sodium Chloride 0.9% 100 ml @ 25 mls/hr IVPB Q8HR [facility] Rx# :[id number] Sodium Chloride 0.9% 1, 560 1040 80 000 ml @ 80 mls/hr IV . [id number] [facility] Rx#:[id number] Intake, IV Titration 163.619 100.000 100 Amount propofoL 1,000 mg In 163.619 100.000 100 Empty Bag 1 bag @ 5 MCG/ KG/MIN 2.372 mls/hr IV . Q24H [facility] Rx#:[id number] Tube Feeding 319 377 29 Other 180 90 30 Output: Urine 1780 3410 850 Other: Voiding Method Indwelling Catheter Indwelling Catheter Indwelling Catheter ABP, PAP, CO, CI - Last Documented Arterial Blood Pressure 120/65 - Exam General appearance: Patient is intubated, mechanically ventilated, sedated, on propofol at 60 mcg/kg/m Head exam: Atraumatic, normocephalic endotracheal tube and orogastric tube are intact Eye exam: PERRLA, EOMI, anicteric. ENT exam: Dry mucous membranes, throat is clear. Neck exam: Supple no neck masses no JVD no stridor. Respiratory exam: Fine crackles at the bases, no rhonchi no wheezes. Cardiovascular Exam: Distant S1 and S2, no S3 gallop, no murmur. GI/Abdominal exam: Obese soft nontender, no guarding, no rebound Extremities exam: No clubbing edema or cyanosis. Neurological exam: Could not assess, fully sedated. She however grimaces to painful stimulation and she is withdrawing her arms to painful stimulation in all 4 extremities. Psychiatric exam: Could not be assessed, fully sedated Skin exam: Multiple tattoos all over, no rashes otherwise. - Labs CBC & Chem 7: 12/09/21 03:10 12/09/21 03:10 Labs: Abnormal Lab Results - Last 24 Hours (Table) 12/09/21 12/10/21 12/10/21 Range/Units 11:44 00:36 05:04 ABG pH 7.51 H (7.35-7.45) ABG HCO3 29 H (21-25) mmol/L ABG Total CO2 30 H (19-24) mmol/L ABG O2 Saturation 97.8 H (94-97) % POC Glucose (mg/dL) 109 H 112 H (75-99) mg/dL 12/10/21 Range/Units 06:01 ABG pH (7.35-7.45) ABG HCO3 (21-25) mmol/L ABG Total CO2 (19-24) mmol/L ABG O2 Saturation (94-97) % POC Glucose (mg/dL) 110 H (75-99) mg/dL Microbiology - Last 24 Hours (Table) 12/07/21 08:20 Gram Stain - Final Sputum Sputum Culture - Final Klebsiella pneumoniae Assessment and Plan Plan: Acute hypoxic respiratory failure secondary to aspiration pneumonia and possibly withdrawal from different drugs and drug overdose. The sputum is positive for Gram neg bacillus and the patient is on Zosyn. The chest x-ray was noted. The blood gas was noted. The patient is oxygenating adequately for now. The patient has a right upper lobe pulmonary infiltrate. Sputum sample is possible The Patient Remains on IV Zosyn. She Remains on a Mechanical Ventilator for Now. Oxygenation Is Adequate. Altered mental status secondary to multiple drugs overdose, mostly amphetamine and to tricyclics overdose, continues to have high level of education and the patient failed a sedation child yesterday History of depression and history of suicidal attempts in the past. The patient is demented on a combination of Cymbalta, Lamictal and Klonopin on outpatient basis. The patient is also on Vraylar for her chronic psychiatric disorder Previous history of Depakote overdose Benign essential hypertension History of hypothyroidism History of underlying COPD Bipolar disorder RLS Chronic pain disorder on norco ADD/ADHD Cervical cancer post hysterectomy Recommendation: Continue ventilatory support. Drop the respiratory rate down to 14 Sadation Holiday and give the patient Precedex if needed once off the propofol. The patient will be also started on Klonopin 1 mg twice a day Continue IV Zosyn continue nutritional support/enteral feeding. GI and DVT prophylaxis. Continue to monitor the patient in the ICU Continue to monitor the patient hemodynamically patient is hemodynamically stable, not requiring any pressors. Continue to monitor electrolytes. continue suicidal precautions. Will evaluate the patient post sedation holiday, assessment weaning parameters if possible and consider extubation as long as she has adequate mentation without any significant agitation. Definitely need a psychiatric evaluation post extubation Patient is critically ill, critical care time is over 30 minutes Time with Patient: Greater than 30
[2021-12-10] MEDS ORDERED: RACEPINEPHRINE 2.25% NEB 0.5 ML NEBU INHALATION STA (11:28)
[2021-12-10] MEDS ORDERED: RACEPINEPHRINE 2.25% NEB 0.5 ML NEBU INHALATION ONE (11:31)
[2021-12-10] MEDS: SODIUM CHLORIDE 0.9% 1,000 ML IV SCH ×2 (11:35→23:21)
[2021-12-10] MEDS: methylPREDNISolone SOD SUCCI 40 MG/ML 1 ML VIAL IV SCH ×2 (11:35→19:52)
[2021-12-10] MEDS ORDERED: FUROSEMIDE 10 MG/ML 4 ML VIAL IV STA (11:42)
[2021-12-10] MEDS: DEXMEDETOMIDINE/0.9% NACL(PMX) 400 MCG in EMPTY BAG 1 BAG IV SCH (11:59)
--- NOTE | 2021-12-10 12:26 | XR ---
EXAMINATION TYPE: XR chest 1V portable DATE OF EXAM: 12/10/2021 Comparison: Earlier today Clinical History: 51-year-old female difficulty breathing, soreness of breath Findings: Right CVC tip in the right atrium. Heart upper limits of normal in size. Patchy bilateral airspace op acities especially right perihilar and left base, relatively similar to slightly increased. Additiona l hazy left basilar density suggesting small effusion, unchanged. Impression: Bilateral airspace disease in the right perihilar and left basilar regions along with small left pleu ral effusion. Relatively similar to slightly increased from earlier today.
[2021-12-10 13:05] LABS: Glucose,Whole Blood 122 mg/dL (75-99)
[2021-12-10] MEDS: NOREPINEPHRINE 32 MG in SODIUM CHLORIDE 0.9% 218 ML IV SCH (16:32)
[2021-12-10] MEDS: PRAMIPEXOLE 1 MG TAB PO SCH (20:27)
--- NOTE | 2021-12-10 22:39 | P.PN ---
Subjective Patient is a 51-year-old female with a known history of asthma/COPD, hypertension, hypothyroidism, herniated disc, depression/bipolar disorder and o ther medical problems and previous history of overdose while brought to the ER due to altered mental status. Patient was brought to the hospital by police due to domestic dispute and the patient went to the bathroom and came out and started having slurred speech and was not speaking well EMS was called and patient was brought to the hospital. Otherwise patient was noted any symptoms prior to the episode. No nausea vomiting abdominal pain or diarrhea. No recent illnesses. Patient is currently admitted to the MICU. Currently requiring Levophed due to hypotension. UDS is positive for tree tricyclic antidepressants, amphetamines and marijuana. Chest x-ray showed no active cardiopulmonary disease. Normal heart. There is essentially complete clearing of the atelectasis and infiltrate left lung base compared to old exam. CT head and cervical spine showed negative CT scan of the brain. Spondylosis at C5-C6. Calcified posterior disc herniation with 6 mm spinal stenosis at C5-C6. No cervical spine fracture. EKG showed sinus rhythm with occasional ventricular premature complexes. Other laboratory data showed WBC 5.7 hemoglobin 11.4 platelets 218 INR 1.0 ABG showed pH 7.35 PCO2 38 and PO2 59 Sodium 135 potassium 2.8 chloride 102 BUN 16 creatinine 0.85 liver enzymes are not elevated. TSH 1.7 within normal limits. Urinalysis is negative for infection. 12/06/2021. Patient is in the MICU. Patient was agitated and could not be controlled with Precedex and IV Ativan. Patient was intubated and added Versed. . ABG showed pH 7.46 PCO2 40 PO2 225 Sodium 136 potassium 3.0 chloride 104 bicarb is 27. Bicarb drip has been discontinued. Blood sugar is 137 calcium 7.4 and albumin 3.0 BUN 30 and creatinine 0.58. WBC 12.7 hemoglobin 12.4 and platelets 235 Patient is being continued antibiotics in the form of Zosyn for possible aspiration. Chest x-ray showed bilateral pneumonia increased compared to exam yesterday. No heart failure. 12/07/2021. Patient remains on mechanical ventilator. Currently on propofol. ABG showed pH 7.5 PCO2 40 and PO2 68. Patient has been afebrile. Chest x-ray showed persistent central right lung acute infiltrate and left basilar acute infiltrate and/or atelectasis with suspected small to tiny left pleural effusion. No significant change from 1 day earlier. Laboratory pressure WBC 14.3 hemoglobin 10.7 and platelets 187 sodium 135 potassium 3.6 chloride 103 bicarb is 31 BUN 15 and creatinine 0.56 and calcium 7.5. Patient remains on antibiotics in the form of Zosyn. 12/08/2021. Patient is in MICU currently intubated and sedated with propofol. ABG showed pH 7.47 PCO2 40 and PO2 74. Patient was agitated with sedation holiday and was s tarted back on sedation again. Continued on antibiotics in the home of Zosyn. Chest x-ray showed persistent central right lung acute infiltrate and left basilar acute infiltrate or atelectasis with suspected small to tiny left pleural effusion. No significant change. Laboratory data showed WBC 13.9 hemoglobin 10.4 and platelets 215 Sodium 133 potassium 4.0 chloride 100 bicarb is 30 BUN 14 and creatinine 0.61 and calcium 7.6. Pulmonary is on board. 12/09/2021 Patient is seen in follow-up this morning and per nursing staff attempting sedation holiday although patient is not following any commands and continues to be altered and confused and is currently being re-sedated. Patient is maint ained on mechanical ventilation with an FiO2 40% and PEEP is 5. Pulmonary and psychiatry following. Patient is also continued on IV antibiotics. Patient is afebrile. Subjective: Resume the care of the patient today 12/10/2021, Patient could not provide information so it was obtained from the records as above This is a pleasant 51 years old female who presents with respiratory failure secondary to his prescription pneumonia status post intubation and placed on mechanical ventilation, currently kept in the ICU with pulmonary/critical care team followed closely and help with vent management. Sputum culture is growing Klebsiella and she is covered with Zosyn. Also Solu-Medrol. Patient continued on normal saline 80 mL/h. She is on Lamictal and Cymbalta Urine drug screen is positive for amphetamine, tricyclic antidepressant and marijuana, suspected patient overdose versus withdrawal was psychiatrist saw the patient but she was intubated and they recommended to reconsult when she is ex tubated. Patient currently undergoing sedation holiday Review of systems: N/a Active Medications Generic Name Dose Route Start Last Admin Trade Name Freq PRN Reason Stop Dose Admin Albuterol/Ipratropium 3 ml 12/05/21 12:00 12/10/21 19:55 Ipratropium-Albuterol 3 Ml Neb INHALATION Not Given RT-QID MATTHEW Clonazepam 1 mg 12/10/21 08:59 Clonazepam 1 Mg Tab PO BID PRN Anxiety Duloxetine HCl 60 mg 12/09/21 09:00 12/10/21 08:52 Duloxetine Hcl 60 Mg Capsule.Dr PO Not Given DAILY MATTHEW Enoxaparin Sodium 40 mg 12/05/21 09:00 12/10/21 08:51 Enoxaparin 40 Mg/0.4 Ml Syringe SQ 40 mg DAILY MATTHEW Administration Gabapentin 600 mg 12/09/21 09:00 12/10/21 22:01 Gabapentin 300 Mg Cap PO Not Given TID MATTHEW Norepinephrine Bitartrate 32 250 mls @ 1.853 mls/hr 12/05/21 15:30 12/10/21 16:32 mg/ Sodium Chloride IV Not Given .Q24H MATTHEW Protocol 0.05 MCG/KG/MIN Piperacillin Sod/Tazobactam 100 mls @ 25 mls/hr 12/06/21 08:15 12/10/21 17:22 Sod 3.375 gm/ Sodium Chloride IVPB 25 mls/hr Q8HR MATTHEW Administration Protocol Sodium Chloride 1,000 mls @ 80 mls/hr 12/08/21 09:30 12/10/21 11:35 Saline 0.9% IV 80 mls/hr .[id number] MATTHEW Administration Dexmedetomidine HCl 400 mcg/ 100 mls @ 4.425 mls/hr 12/10/21 09:00 12/10/21 21:56 IV Solution IV 0.2 mcg/kg/hr .[id number] MATTHEW 4.425 mls/hr Titration Protocol 0.2 MCG/KG/HR Lamotrigine 50 mg 12/09/21 09:00 12/10/21 08:51 Lamotrigine 25 Mg Tab PO 50 mg QAM MATTHEW Administration Methylprednisolone Sodium Succinate 40 mg 12/10/21 12:00 12/10/21 19:52 Methylprednisolone Sod Succi 40 Mg/Ml 1 Ml Vial IV 40 mg Q8H MATTHEW Administration Miscellaneous Information 1 each 12/06/21 07:53 Potassium Replacement Protocol 1 Each Misc MISCELLANE DAILY PRN Per Protocol Protocol Miscellaneous Information 1 each 12/06/21 07:54 Magnesium Replacement Protocol 1 Each Misc MISCELLANE DAILY PRN Per Protocol Protocol Naloxone HCl 0.2 mg 12/05/21 06:16 Naloxone 0.4 Mg/Ml 1 Ml Vial IV Q2M PRN Opioid Reversal Pantoprazole Sodium 40 mg 12/05/21 13:15 12/10/21 08:51 Pantoprazole 40 Mg/10 Ml Vial IVP 40 mg DAILY MATTHEW Administration Pramipexole Dihydrochloride 1 mg 12/09/21 21:00 12/10/21 20:27 Pramipexole 1 Mg Tab PO Not Given [facility] Objective - Vital Signs Vital signs: Vital Signs Temp 98.7 F 12/10/21 08:00 Pulse 110 H 12/10/21 11:34 Resp 22 12/10/21 11:00 BP 134/74 12/10/21 11:00 Pulse Ox 92 L 12/10/21 11:00 FiO2 35 12/10/21 09:00 Intake & Output 12/09/21 12/10/21 12/10/21 18:59 06:59 18:59 Intake Total 3701.021 0272.000 595.523 Output Total 1780 3410 2700 Balance -247.381 -1673.000 -2104.477 Weight 92.6 kg 88.5 kg Intake: IV 870 1170 430 .9@ 10 110 130 10 Piperacillin-Tazobactam 3 200 100 .375 gm In Sodium Chloride 0.9% 100 ml @ 25 mls/hr IVPB Q8HR [facility] Rx# :[id number] Sodium Chloride 0.9% 1, 560 1040 320 000 ml @ 80 mls/hr IV . [id number] [facility] Rx#:[id number] Intake, IV Titration 163.619 100.000 106.523 Amount propofoL 1,000 mg In 163.619 100.000 106.523 Empty Bag 1 bag @ 5 MCG/ KG/MIN 2.372 mls/hr IV . Q24H [facility] Rx#:[id number] Tube Feeding 319 377 29 Other 180 90 30 Output: Urine 1780 3410 2700 Other: Voiding Method Indwelling Catheter Indwelling Catheter Indwelling Catheter ABP, PAP, CO, CI - Last Documented Arterial Blood Pressure 120/65 - Exam -GENERAL: The patient is sedated and intubated HEENT: Pupils are round and equally reacting to light. EOMI. No scleral icterus. No conjunctival pallor. Normocephalic, atraumatic. No pharyngeal erythema. No thyromegaly. CARDIOVASCULAR: S1 and S2 present. No murmurs, rubs, or gallops. PULMONARY: Chest is clear to auscultation, no wheezing or crackles. ABDOMEN: Soft, nontender, nondistended, normoactive bowel sounds. No palpable organomegaly. MUSCULOSKELETAL: No joint swelling or deformity. EXTREMITIES: No cyanosis, clubbing, or pedal edema. NEUROLOGICAL: Gross neurological examination did not reveal any focal deficits. SKIN: No rashes. no petechiae. - Labs CBC & Chem 7: 12/09/21 03:10 12/09/21 03:10 Labs: Abnormal Lab Results - Last 24 Hours (Table) 12/09/21 12/10/21 12/10/21 Range/Units 11:44 00:36 05:04 ABG pH 7.51 H (7.35-7.45) ABG HCO3 29 H (21-25) mmol/L ABG Total CO2 30 H (19-24) mmol/L ABG O2 Saturation 97.8 H (94-97) % POC Glucose (mg/dL) 109 H 112 H (75-99) mg/dL 12/10/21 Range/Units 06:01 ABG pH (7.35-7.45) ABG HCO3 (21-25) mmol/L ABG Total CO2 (19-24) mmol/L ABG O2 Saturation (94-97) % POC Glucose (mg/dL) 110 H (75-99) mg/dL Microbiology - Last 24 Hours (Table) 12/07/21 08:20 Gram Stain - Final Sputum Sputum Culture - Final Klebsiella pneumoniae Assessment and Plan Assessment: Acute hypoxic respiratory failure secondary to aspiration pneumonia and possible drug withdrawal. Currently patient is on mechanical ventilator. Acute metabolic and toxic encephalopathy due to drug overdose. UDS positive for marijuana, TCA'S and amphetamines. Acute hypoxic respiratory failure secondary to drug overdose Hypotension requiring pressor support. Rule out infection. Severe hypokalemia, replaced Depression with suicide attempt and prior history of similar episode. COPD not in exacerbation Hypothyroidism Hypertension Osteoarthritis Bipolar disorder and depression Plan: This is a pleasant 51 years old female who presents with hypoxia requiring mechanical ventilation and aspiration pneumonia suspected secondary to drug overdose versus withdrawal Continue with mechanical ventilation was pulmonary/critical care team on the case. Continue with Zosyn Continue with steroids, Solu-Medrol and gentle hydration Patient will need psychiatric evaluation Labs and medication were reviewed.. Continue same treatment. Continue with symptomatic treatment. Resume home medication. Monitor lytes and vitals. DVT and GI prophylaxis. Further recommendations as per clinical course of the patient DVT prophylaxis: Subcutaneous Lovenox GI Prophylaxis: Ppi Prognosis is guarded
[2021-12-11 01:25] LABS: Glucose,Whole Blood 106 mg/dL (75-99)
[2021-12-11] MEDS: methylPREDNISolone SOD SUCCI 40 MG/ML 1 ML VIAL IV SCH ×3 (03:30→20:12)
[2021-12-11 03:50] LABS: Basophils % (A) 0 %; Eosinophils % (A) 0 %; HCT 36.5 % (34.0-46.0); HGB 11.4 gm/dL (11.4-16.0); Lymphocytes # (A) 0.8 k/uL (1.0-4.8); Lymphocytes % (A) 9 %; MCH 29.5 pg (25.0-35.0); MCHC 31.2 g/dL (31.0-37.0); MCV 94.4 fL (80.0-100.0); Mean Platelet Volume 8.1; Monocytes # (A) 0.4 k/uL (0-1.0); Monocytes % (A) 4 %; Neutrophils # (A) 7.9 k/uL (1.3-7.7); Neutrophils % (A) 85 %; Platelet Count 311 k/uL (150-450); RBC 3.86 m/uL (3.80-5.40); RDW 13.5 % (11.5-15.5); WBC 9.3 k/uL (3.8-10.6)
[2021-12-11 04:03] LABS: ALT 29 U/L (4-34); AST 28 U/L (14-36); African American GFR (CKD) >90 (>60 ml/min/1.73 sqM); Albumin 2.9 g/dL (3.5-5.0); Alkaline Phosphatase 265 U/L (38-126); Anion Gap 2 mmol/L; Blood Urea Nitrogen 14 mg/dL (7-17); Calcium 8.3 mg/dL (8.4-10.2); Carbon Dioxide 32 mmol/L (22-30); Chloride 102 mmol/L (98-107); Glucose 109 mg/dL (74-99); Non-African American GFR(CKD) >90 (>60 ml/min/1.73 sqM); Potassium 4.1 mmol/L (3.5-5.1); Sodium 136 mmol/L (137-145); Total Bilirubin 0.6 mg/dL (0.2-1.3); Total Protein 5.6 g/dL (6.3-8.2)
[2021-12-11 06:46] LABS: Glucose,Whole Blood 97 mg/dL (75-99)
[2021-12-11] MEDS: DULoxetine HCL 60 MG CAPSULE.DR PO SCH ×2 (07:37→09:49)
[2021-12-11] MEDS: lamoTRIgine 25 MG TAB PO SCH ×2 (07:38→09:48)
[2021-12-11] MEDS: GABAPENTIN 300 MG CAP PO SCH ×4 (07:38→22:05)
[2021-12-11] MEDS: ENOXAPARIN 40 MG/0.4 ML SYRINGE SQ SCH (07:49)
[2021-12-11] MEDS: PIPERACILLIN-TAZOBACTAM 3.375 GM in SODIUM CHLORIDE 0.9% 100 ML IVPB SCH (07:49)
[2021-12-11] MEDS: PANTOPRAZOLE 40 MG/10 ML VIAL IVP SCH (07:50)
--- NOTE | 2021-12-11 07:56 | XR ---
EXAMINATION TYPE: XR chest 1V portable DATE OF EXAM: 12/11/2021 COMPARISON: X-ray dated 12/10/2021 HISTORY: Tube placement TECHNIQUE: Single frontal view of the chest is obtained. FINDINGS: Unchanged position of the right-sided central venous line. Heterogeneous pulmonary patchy opacities, seen bilaterally, slightly improved in the right upper lung zone. Questionable small left pleural effusion. Unchanged cardiomediastinal silhouette and bony thoracic ca ge. IMPRESSION: Mild interval changes as described above.
[2021-12-11] MEDS: IPRATROPIUM-ALBUTEROL 3 ML NEB INHALATION SCH ×4 (08:02→19:33)
[2021-12-11] MEDS ORDERED: ONDANSETRON 4 MG/2 ML VIAL IVP PRN (09:07)
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
[2021-12-11] MEDS: NYSTATIN 100,000 UNIT/ML SUSP 500,000 UNIT/5 ML CUP PO SCH ×4 (09:49→22:05)
[2021-12-11] MEDS ORDERED: LORazepam 2 MG/ML INJ IM PRN (10:10)
[2021-12-11] MEDS ORDERED: LORazepam 1 MG TAB PO PRN (10:10)
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
[2021-12-11 13:19] VITALS: BMI 29.9
[2021-12-11] MEDS: DEXMEDETOMIDINE/0.9% NACL(PMX) 400 MCG in EMPTY BAG 1 BAG IV SCH (16:05)
[2021-12-11] MEDS: AMOXIC-POT CLAV 875-125MG 1 EACH TAB PO SCH (22:05)
[2021-12-11] MEDS: PRAMIPEXOLE 1 MG TAB PO SCH (22:05)
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
[2021-12-12] MEDS: methylPREDNISolone SOD SUCCI 40 MG/ML 1 ML VIAL IV SCH (06:10)
[2021-12-12] MEDS: IPRATROPIUM-ALBUTEROL 3 ML NEB INHALATION SCH ×4 (07:12→20:02)
[2021-12-12] MEDS ORDERED: PANTOPRAZOLE 40 MG TABLET PO SCH (07:30)
[2021-12-12] MEDS: DULoxetine HCL 60 MG CAPSULE.DR PO SCH (07:39)
[2021-12-12] MEDS: GABAPENTIN 300 MG CAP PO SCH ×3 (07:40→20:59)
[2021-12-12] MEDS: AMOXIC-POT CLAV 875-125MG 1 EACH TAB PO SCH ×2 (07:40→20:59)
[2021-12-12] MEDS: ENOXAPARIN 40 MG/0.4 ML SYRINGE SQ SCH (07:40)
[2021-12-12] MEDS: lamoTRIgine 25 MG TAB PO SCH (07:41)
[2021-12-12] MEDS: NYSTATIN 100,000 UNIT/ML SUSP 500,000 UNIT/5 ML CUP PO SCH ×4 (07:41→21:00)
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
[2021-12-12] MEDS ORDERED: NYSTATIN 100,000 UNIT/ML SUSP 500,000 UNIT/5 ML CUP ONE (12:00)
[2021-12-12] MEDS ORDERED: IPRATROPIUM-ALBUTEROL 3 ML NEB ONE (12:00)
--- NOTE | 2021-12-12 14:58 | P.PN ---
Progress Note - Text Progress Note Date: 12/12/21 Interval History: Patient was seen resting in bed and was directable and agreeable to speak with typewriter mechanic in her room., The patient does report that she needs to come to the psychiatric unit after an intentional overdose. She does express that she has been having significant depression and suicidal ideation. She is currently denying any suicidal or homicidal ideation at this time. She is denying any auditory or visual hallucinations. She reports no paranoia or other delusions. She is in agreement that she needs help. Mental Status Exam: General Appearance: Patient appears to be stated age is alert, directable, and cooperative. Behavior: Patient is calmly lying down in bed without any agitated behavior. Speech: Patient's speech is fluent and nonpressured. Mood/Affect: Mood is improving mildly, affect is congruent and constricted. Suicidality/Homicidality: Patient denies having any suicidal or homicidal ideation intent or plan. Perceptions: Patient denies any visual hallucinations and denies any auditory hallucinations Though content/process: There is no evidence of any delusional thought content and thought process is linear and goal-directed. Memory and concentration: AOX3, grossly intact for the purposes of this session Judgment and insight: Improving mildly Vital Signs Temp 97.9 F 12/12/21 08:00 Pulse 86 12/12/21 11:42 Resp 18 12/12/21 08:00 BP 157/108 12/12/21 08:00 Pulse Ox 93 L 12/12/21 08:00 FiO2 35 12/10/21 09:00 Intake & Output 12/11/21 12/12/21 12/12/21 18:59 06:59 18:59 Intake Total 280 250 Output Total 1580 975 Balance -1300 -725 Weight 81.5 kg Intake: IV 280 .9@ 10 20 Piperacillin-Tazobactam 3 100 .375 gm In Sodium Chloride 0.9% 100 ml @ 25 mls/hr IVPB Q8HR [facility] Rx# :[id number] Sodium Chloride 0.9% 1, 160 000 ml @ 80 mls/hr IV . [id number] MATTHEW Rx#:[id number] Oral 250 Output: Urine 1580 975 Other: Voiding Method Indwelling Catheter Indwelling Catheter Toilet # Voids 1 ABP, PAP, CO, CI - Last Documented Arterial Blood Pressure 156/83 Assessment Major depressive disorder, recurrent, severe Plan: -At this time patient DOES meet criteria for inpatient psychiatric admission. -Would recommend the following medication changes/additions: No medication recommendations made at this time. Continue current medication regimen. -Continue 1:1 sitter for safety -Cannot leave AMA at this time. Patient will need a petition and certification if attempting to leave AMA. -When medically stable, patient is eligible for transfer to a psych bed when available. -Psychiatry will sign off at this point, please contact with any questions.
--- NOTE | 2021-12-12 16:28 | P.DS ---
Providers Date of admission: 12/05/21 06:16 Attending physician: Cristina Cash Consults: 12/05/21 06:16 Consult Physician Routine Consulting Provider: Julienne Meier Consult Reason/Comments: icu Do you want consulting provider notified?: Yes Consult Physician Routine Consulting Provider: Alexys Baker Consult Reason/Comments: OD Do you want consulting provider notified?: Yes Primary care physician: Stated None Hospital Course: Diagnoses: Acute hypoxic respiratory failure secondary to aspiration pneumonia and possible drug withdrawal. Status post extubation. Significantly improved Acute metabolic and toxic encephalopathy due to drug overdose. Mentation back to normal Depression with suicidal attempt. Will need transfer to psych unit upon discharge Substance abuse for marijuana, TCA'S and amphetamines. Acute hypoxic respiratory failure secondary to drug overdose, resolved Depression with suicide attempt and prior history of similar episode. COPD not in exacerbation Hypothyroidism Hypertension Osteoarthritis History of back pain Bipolar disorder and depression Hospital course: Patient is a 51-year-old female with a known history of asthma/COPD, hypertension, hypothyroidism, herniated disc, depression/bipolar disorder and previous suicidal attempts was admitted to the hospital with respiratory failure requiring intubation and placed under mechanical ventilation with altered mental status secondary to drug overdose, her urine toxicology screen was positive for amphetamine, marijuana and tricyclic antidepressant. Patient admits to take a drug overdose after a quarrel with her sister. Patient was treated in the ICU with pulmonary/critical care team followed closely. Also she has evidence of aspiration pneumonia which is treated with Zosyn and the steroids and normal saline. Patient showed interval improvement, she got extubated on 12/10, she showed interval improvement and currently she is fully awake and oriented, she is saturating high 90s on room air. She denies chest pain or dyspnea no abdominal pain. No vomiting or diarrhea. No urinary complaints. No fever. Sputum culture was growing Klebsiella. Antibiotic was adjusted to Augmentin upon discharge with short oral call us to finish her therapy. Patient developed by psychiatrist who recommended inpatient psychiatric admission. Patient also feels generalized weakness which is improving gradually, evaluated by physical therapy, we recommend patient to continue with physical therapy. Patient was able to stand up by herself and walks a few steps, however she still needs some assistance. Because of this we held her Clonopin upon discharge and lower the dose of gabapentin 600 mg down to 400 mg 3 times a day, patient denies history of seizure, she states she takes this medication for and back pain Today patient was cleared for discharge by duct installer Problems and management plan were discussed with the patient and he verbalized understanding and acceptance Patient was found stable and can be discharged to psych unit in guarded prognosis however he needs follow-up as an outpatient. Patient was instructed to follow up with PCP within one week and patient agrees Patient was instructed to follow up with Dr. Garcia duct installer in 2 weeks after discharge Physical exam Gen: patient is a AAOx3, no distress CVS: S1-S2, RRR, no murmur Lungs: B/L CTA, no wheezing Abdomen: soft, no distention, no tenderness, positive bowel sounds Extremity: no leg edema or induration Neurology: Cranial nerves are grossly intact. Strength is 5/5 in all extruded E. Sensation is intact. Meningeal signs are absent. Time spent more than 35 minutes Patient Condition at Discharge: Serious Plan - Discharge Summary Discharge Rx Participant: Yes New Discharge Prescriptions: New Amoxic-Pot Clav 875-125Mg [Augmentin 875-125] 1 each PO Q12HR 6 Days #12 tab Nystatin 100,000 Unit/ml Susp [Mycostatin Oral Susp] 500,000 unit PO QID 2 Days #10 ml Continue Fluticasone Nasal [place] [Flonase Nasal [place]] 2 spray EA NOSTRIL DAILY Dexlansoprazole [Dexilant] 60 mg PO DAILY Famotidine [Pepcid] 20 mg PO BID lamoTRIgine [LaMICtal] 50 mg PO QAM Albuterol Sulfate [Albuterol Sulfate Hfa] 1 - 2 puff PO RT-Q4H PRN PRN Reason: Shortness Of Breath Cariprazine HCl [Vraylar] 3 mg PO QAM Triamterene/Hydrochlorothiazid [Dyazide 37.5-25 Capsule] 1 cap PO DAILY Pramipexole [Mirapex] 1 mg PO HS Gabapentin [Neurontin] 600 mg PO TID Dextroamphetamine/Amphetamine [Adderall Xr] 20 mg PO QAM DULoxetine HCL [Cymbalta] 60 mg PO DAILY amLODIPine [Norvasc] 5 mg PO DAILY Discontinued Cyclobenzaprine [Flexeril] 10 mg PO TID PRN PRN Reason: Muscle Spasm clonazePAM [KlonoPIN] 1 mg PO BID PRN PRN Reason: Anxiety HYDROcodone/APAP 10-325MG [[place] 10-325] 2 tab PO Q6HR PRN PRN Reason: Moderate Pain Discharge Medication List Dexlansoprazole [Dexilant] 60 mg PO DAILY 09/06/21 [History] Fluticasone Nasal [place] [Flonase Nasal [place]] 2 spray EA NOSTRIL DAILY 09/06/21 [History] Gabapentin [Neurontin] 600 mg PO TID 09/06/21 [History] Pramipexole [Mirapex] 1 mg PO HS 09/06/21 [History] Triamterene/Hydrochlorothiazid [Dyazide 37.5-25 Capsule] 1 cap PO DAILY 09/06/21 [History] Albuterol Sulfate [Albuterol Sulfate Hfa] 1 - 2 puff PO RT-Q4H PRN 12/05/21 [History] Cariprazine HCl [Vraylar] 3 mg PO QAM 12/05/21 [History] DULoxetine HCL [Cymbalta] 60 mg PO DAILY 12/05/21 [History] Dextroamphetamine/Amphetamine [Adderall Xr] 20 mg PO QAM 12/05/21 [History] Famotidine [Pepcid] 20 mg PO BID 12/05/21 [History] amLODIPine [Norvasc] 5 mg PO DAILY 12/05/21 [History] lamoTRIgine [LaMICtal] 50 mg PO QAM 12/05/21 [History] Amoxic-Pot Clav 875-125Mg [Augmentin 875-125] 1 each PO Q12HR 6 Days #12 tab 12/12/21 [Rx] Nystatin 100,000 Unit/ml Susp [Mycostatin Oral Susp] 500,000 unit PO QID 2 Days #10 ml 12/12/21 [Rx] Follow up Appointment(s)/Referral(s): Julienne Meier MD [STAFF PHYSICIAN] - 01/02/22 8:30 am (with Analilia Capone ) None,Stated [Primary Care Provider] - 1-2 days Activity/Diet/Wound Care/Special Instructions: Heart healthy diet Activity as tolerated Patient will need ongoing physical therapy Discharge Disposition: TRANSFER TO PSYCH HOSP/UNIT
[2021-12-12 19:40] VITALS: BP 138/87; PULSE 92; RESP 15; TEMP 98.7
[2021-12-12] MEDS: PRAMIPEXOLE 1 MG TAB PO SCH (20:59)
== END 2021-12-12 23:30 | DRG 917 ==
LOC: EC 22:31 → 2SICU 12-05 06:16 → 4SSUR 12-11 23:37
PROVIDERS: ADMIT Hospitalist; ATTEND Hospitalist
PROC: 02H633Z Insertion of Infusion Device into Right Atrium, Percutaneous Approach (ICD-10-PCS; 2021-12-04)
PROC: 3E043XZ Introduction of Vasopressor into Central Vein, Percutaneous Approach (ICD-10-PCS; 2021-12-05)
PROC: 4A133B1 Monitoring of Arterial Pressure, Peripheral, Percutaneous Approach (ICD-10-PCS; 2021-12-05)
PROC: 4A133J1 Monitoring of Arterial Pulse, Peripheral, Percutaneous Approach (ICD-10-PCS; 2021-12-05)
PROC: 03HY32Z Insertion of Monitoring Device into Upper Artery, Percutaneous Approach (ICD-10-PCS; 2021-12-05)
PROC: 5A0945A Assistance with Respiratory Ventilation, 24-96 Consecutive Hours, High Flow/Velocity Cannula (ICD-10-PCS; 2021-12-05)
PROC: 0BH17EZ Insertion of Endotracheal Airway into Trachea, Via Natural or Artificial Opening (ICD-10-PCS; principal; 2021-12-06)
PROC: 5A1955Z Respiratory Ventilation, Greater than 96 Consecutive Hours (ICD-10-PCS; principal; 2021-12-06)
PROC: 03HY32Z Insertion of Monitoring Device into Upper Artery, Percutaneous Approach (ICD-10-PCS; 2021-12-06)
PROC: 4A133B1 Monitoring of Arterial Pressure, Peripheral, Percutaneous Approach (ICD-10-PCS; 2021-12-06)
PROC: 4A133J1 Monitoring of Arterial Pulse, Peripheral, Percutaneous Approach (ICD-10-PCS; 2021-12-06)
PROC: 3E0G76Z Introduction of Nutritional Substance into Upper GI, Via Natural or Artificial Opening (ICD-10-PCS; 2021-12-06)
PROC: 0D9670Z Drainage of Stomach with Drainage Device, Via Natural or Artificial Opening (ICD-10-PCS; 2021-12-06)
PROC: 5A0945A Assistance with Respiratory Ventilation, 24-96 Consecutive Hours, High Flow/Velocity Cannula (ICD-10-PCS; 2021-12-10)
PROC: 05H933Z Insertion of Infusion Device into Right Brachial Vein, Percutaneous Approach (ICD-10-PCS; 2021-12-11)
DX: T43.012A Poisoning by tricyclic antidepressants, intentional self-harm, initial encounter (principal); G92.8 Other toxic encephalopathy; J96.01 Acute respiratory failure with hypoxia; R57.1 Hypovolemic shock; J69.0 Pneumonitis due to inhalation of food and vomit; J15.0 Pneumonia due to Klebsiella pneumoniae; B37.89 Other sites of candidiasis; B37.0 Candidal stomatitis; F05 Delirium due to known physiological condition; E87.4 Mixed disorder of acid-base balance; F31.4 Bipolar disorder, current episode depressed, severe, without psychotic features; J98.11 Atelectasis; F19.239 Other psychoactive substance dependence with withdrawal, unspecified; J44.9 Chronic obstructive pulmonary disease, unspecified; I95.9 Hypotension, unspecified; T43.622A Poisoning by amphetamines, intentional self-harm, initial encounter; Z20.822 Contact with and (suspected) exposure to COVID-19; J98.01 Acute bronchospasm; E86.0 Dehydration; G25.81 Restless legs syndrome; G89.29 Other chronic pain; M54.9 Dorsalgia, unspecified; D64.9 Anemia, unspecified; F90.9 Attention-deficit hyperactivity disorder, unspecified type; M47.812 Spondylosis without myelopathy or radiculopathy, cervical region; M48.02 Spinal stenosis, cervical region; E87.6 Hypokalemia; I45.9 Conduction disorder, unspecified; I49.3 Ventricular premature depolarization; E03.9 Hypothyroidism, unspecified; I10 Essential (primary) hypertension; M19.90 Unspecified osteoarthritis, unspecified site; E66.9 Obesity, unspecified; Z68.31 Body mass index [BMI] 31.0-31.9, adult; F17.210 Nicotine dependence, cigarettes, uncomplicated; Z79.890 Hormone replacement therapy; Z79.1 Long term (current) use of non-steroidal anti-inflammatories (NSAID); Z79.899 Other long term (current) drug therapy; Z91.51 Personal history of suicidal behavior; Z63.0 Problems in relationship with spouse or partner; Z90.710 Acquired absence of both cervix and uterus; Z85.41 Personal history of malignant neoplasm of cervix uteri; Z98.51 Tubal ligation status; Z98.1 Arthrodesis status; Z87.2 Personal history of diseases of the skin and subcutaneous tissue; Z98.890 Other specified postprocedural states; Z71.3 Dietary counseling and surveillance; Z88.5 Allergy status to narcotic agent; Z88.8 Allergy status to other drugs, medicaments and biological substances; Z91.040 Latex allergy status; Y04.0XXA Assault by unarmed brawl or fight, initial encounter; Y92.009 Unspecified place in unspecified non-institutional (private) residence as the place of occurrence of the external cause
CPT/HCPCS: 36410; 36415; 36573; 36600; 70450; 71045; 72125; 76937; 80048; 80053; 80143; 80164; 80179; 80306; 80320; 81001; 82140; 82803; 82805; 83605; 83735; 84100; 84132; 84443; 84484; 85025; 85027; 85610; 85730; 87070; 87077; 87186; 87205; 87635; 93005; 94002; 94003; 94640; 96361; 96365; 96366; 96367; 96375; 96376; 99291

== ENCOUNTER 2021-12-12 21:01 | Inpatient (IN) | payer MEDICARE, MEDICAID ==
[2021-12-12] MEDS ORDERED: MAG HYDROX/AL HYDROX/SIMETH 30 ML CUP PO PRN (22:12)
[2021-12-12] MEDS ORDERED: MAGNESIUM HYDROXIDE 2,400 MG/10 ML CUP PO PRN (22:12)
[2021-12-12] MEDS ORDERED: ACETAMINOPHEN TAB 325 MG TAB PO PRN (22:12)
[2021-12-12] MEDS ORDERED: HALOPERIDOL LACTATE 5 MG/ML 1 ML VIAL IM PRN (23:00)
[2021-12-12] MEDS ORDERED: LORazepam 2 MG/ML INJ IM PRN (23:00)
[2021-12-12] MEDS ORDERED: haloperidoL 5 MG TAB PO PRN (23:00)
[2021-12-12] MEDS ORDERED: LORazepam 1 MG TAB PO PRN (23:00)
[2021-12-13] MEDS: NICOTINE 14MG/24HR PATCH TRANSDERM SCH ×3 (01:23→10:44)
[2021-12-13] MEDS: AMOXIC-POT CLAV 875-125MG 1 EACH TAB PO SCH ×3 (01:23→21:05)
[2021-12-13] MEDS: GABAPENTIN 300 MG CAP PO SCH ×2 (01:24→09:22)
[2021-12-13] MEDS: NYSTATIN 100,000 UNIT/ML SUSP 500,000 UNIT/5 ML CUP PO SCH ×5 (01:24→21:04)
[2021-12-13] MEDS: FLUTICASONE 50MCG/SPRAY NASAL 16GM EA NOSTRIL SCH (08:51)
[2021-12-13] MEDS: ALBUTEROL HFA INHALER INHALATION PRN (08:51)
[2021-12-13] MEDS: PANTOPRAZOLE 40 MG TABLET PO SCH (08:51)
[2021-12-13] MEDS: amLODIPine 5 MG TAB PO SCH (08:52)
[2021-12-13] MEDS: FAMOTIDINE 20 MG TAB PO SCH ×2 (08:52→21:05)
[2021-12-13] MEDS ORDERED: DULoxetine HCL 60 MG CAPSULE.DR PO SCH (09:00)
[2021-12-13] MEDS ORDERED: lamoTRIgine 25 MG TAB PO SCH (09:00)
[2021-12-13] MEDS: TRIAMTERENE-HCTZ 37.5-25MG 1 EACH CAP PO SCH (09:23)
[2021-12-13] MEDS: GABAPENTIN 400 MG CAP PO SCH ×3 (09:24→21:05)
[2021-12-13] MEDS ORDERED: ARIPiprazole 10 MG TAB PO STA (10:14)
[2021-12-13 10:55] LABS: Chol/HDL Ratio 7.79 Ratio
[2021-12-13] MEDS: PRAMIPEXOLE 1 MG TAB PO SCH (21:05)
[2021-12-13] MEDS: DULoxetine HCL 60 MG CAPSULE.DR PO SCH (21:05)
--- NOTE | 2021-12-14 00:07 | P.MDCNMH ---
History of Present Illness H&P Date: 12/13/21 Chief Complaint: Drug overdose Patient is a 51-year-old female with known history of COPD, hypertension, asthma, hypothyroidism, cervical cancer status post hysterectomy, and history of ESBL infection was initially admitted to MICU due to acute hypoxic respiratory failure secondary to drug overdose. Patient was on mechanical ventilatory and was also requiring treatment for possible pneumonia/aspiration. Patient has suicidal ideation and attempted suicide with drug overdose. Patient was extubated eventually and was transferred to inpatient psychiatric unit for further management. Recent laboratory data showed WBC 9.3 hemoglobin 11.4 and platelets 311 Sodium 136 potassium 4.1 chloride 102 bicarb is 32 BUN 14 and creatinine 0.48 AST 28 ALT 29 alk phos 265 albumin 2.9 and LDL 157. Coronavirus PCR not detected. Review of Systems Constitutional: Patient denies any fever or chills . No generalized weakness or weight loss. Abdomen: Patient denied nausea vomiting and diarrhea and abdominal pain. Cardiovascular: Patient denies any chest pain or short of breath no palpitations. Respiratory: patient denied any cough or sputum production. No shortness of breath Neurologic: Patient denied any numbness or tingling headache. Musculoskeletal: Patient denies any complaints of joint swelling or deformity. Skin: Negative Psychiatric: Negative Endocrine: No heat or cold intolerance. No recent weight gain. Genitourinary: No dysuria or hematuria. All other 14 point ROS negative except the above Past Medical History Past Medical History: Asthma, Cancer, COPD, Hypertension, Musculoskeletal Disord er, Thyroid Disorder Additional Past Medical History / Comment(s): herniated disc, had surg. 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 cervical cancer History of Any Multi-Drug Resistant Organisms: ESBL Date of last positivie culture/infection: 12/07/21 ESBL Klebsiella MDRO Source:: Sputum Past Surgical History: Back Surgery, Hysterectomy, Tubal Ligation Additional Past Surgical History / Comment(s): lipoma removal, back surg. x2-2nd was fusion Past Anesthesia/Blood Transfusion Reactions: No Reported Reaction Smoking Status: Current every day smoker Medications and Allergies Home Medications Medication Instructions Recorded Confirmed Type Dexlansoprazole [Dexilant] 60 mg PO DAILY 09/06/21 12/13/21 History Fluticasone Nasal [place] [Flonase 2 spray EA NOSTRIL DAILY 09/06/21 12/13/21 History Nasal [place]] Pramipexole [Mirapex] 1 mg PO HS 09/06/21 12/13/21 History Triamterene/Hydrochlorothiazid 1 cap PO DAILY 09/06/21 12/13/21 History [Dyazide 37.5-25 Capsule] Albuterol Sulfate [Albuterol 1 - 2 puff PO RT-Q4H PRN 12/05/21 12/13/21 History Sulfate Hfa] Cariprazine HCl [Vraylar] 3 mg PO QAM 12/05/21 12/13/21 History DULoxetine HCL [Cymbalta] 60 mg PO DAILY 12/05/21 12/13/21 History Dextroamphetamine/Amphetamine 20 mg PO QAM 12/05/21 12/13/21 History [Adderall Xr] Famotidine [Pepcid] 20 mg PO BID 12/05/21 12/13/21 History amLODIPine [Norvasc] 5 mg PO DAILY 12/05/21 12/13/21 History lamoTRIgine [LaMICtal] 50 mg PO QAM 12/05/21 12/13/21 History Amoxic-Pot Clav 875-125Mg 1 each PO Q12HR 6 Days #12 tab 12/12/21 12/13/21 Rx [Augmentin 875-125] Gabapentin [Neurontin] 400 mg PO TID #0 12/12/21 12/13/21 Rx Nystatin 100,000 Unit/ml Susp 500,000 unit PO QID 2 Days #10 ml 12/12/21 12/13/21 Rx [Mycostatin Oral Susp] Allergies Allergy/AdvReac Type Severity Reaction Status Date / Time alprazolam [From Xanax] Allergy Unknown Verified 12/13/21 01:28 codeine Allergy Dyspnea Verified 12/13/21 01:28 Latex, Natural Rubber Allergy Rash/Hives Verified 12/13/21 01:28 pentazocine lactate Allergy Dyspnea Verified 12/13/21 01:28 [From Talwin] morphine AdvReac Itching Verified 12/13/21 01:28 Physical Exam Vitals: Vital Signs Temp Pulse Resp BP Pulse Ox 12/13/21 08:57 115 H 147/90 12/13/21 06:33 97.7 F 94 18 142/87 98 12/13/21 00:00 97.1 F L 87 15 133/92 92 L Intake and Output 12/12/21 12/13/21 12/13/21 22:59 06:59 14:59 Other: Weight 81.5 kg 73.17 kg PHYSICAL EXAMINATION: Patient is lying in the bed comfortably, no acute distress, awake alert and oriented.. HEENT: Normocephalic. Neck is supple. Pupils reactive. Nostrils clear. Oral cavity is moist. Neck reveals no JVD, carotid bruits, or thyromegaly. CHEST EXAMINATION: Trachea is central. Symmetrical expansion. Lung lockett clear to auscultation and percussion. CARDIAC: Normal S1, S2 with no gallops. No murmurs ABDOMEN: Soft. Bowel sounds normal. No organomegaly. No abdominal bruits. Extremities: reveal no edema. No clubbing or cyanosis Neurologically awake, alert, oriented x3 with well-coordinated movements. No focal deficits noted Skin: No rash or skin lesions. Psychiatric: Cooperative. Nonsuicidal Musculoskeletal: No joint swelling or deformity. Normal range of motion. Cranial Nerve Examination - Cranial Nerves Cranial Nerve I- Olfactory: Intact Cranial Nerve II- Optic: Intact Cranial Nerve III- Oculomotor: Intact Cranial Nerve IV- Trochlear: Intact Cranial Nerve V- Trigeminal: Intact Cranial Nerve - Abducens: Intact Cranial Nerve VII- Facial: Intact Cranial Nerve VIII- Auditory: Intact Cranial Nerve IX- Glossopharyngeal: Intact Cranial Nerve X- Vagus: Intact Cranial Nerve XI- Accessory: Intact Cranial Nerve XII- Hypoglossal: Intact Results Labs: Abnormal Lab Results - Last 24 Hours (Table) 12/11/21 Range/Units 03:40 Triglycerides 200.00 H (0.00-149.00) mg/dL Cholesterol 226.00 H (0.00-200.00) mg/dL LDL Cholesterol, Calc 157.0 H (0.0-131.0) mg/dL HDL Cholesterol 29.00 L (40.00-60.00) mg/dL Assessment and Plan Assessment: Depression with suicidal attempt S/p VDRF secondary to aspiration pneumonia and drug withdrawal. Substance abuse and UDS positive for marijuana, TCAs and amphetamines. COPD not in exacerbation Hypothyroidism Hypertension Osteoarthritis Chronic back pain Bipolar disorder and depression DVT prophylaxis with ambulation Plan: Patient will be continued on current psychiatric management and plan. Completed antibiotic course with Augmentin for possible aspiration pneumonia. Continue with blood pressure medications and home medications. Follow-up closely. TSH within normal limits. Further recommendations based on the clinical course. Thank you for your consult. Time with Patient: Greater than 30
[2021-12-14] MEDS: ALBUTEROL HFA INHALER INHALATION PRN ×4 (05:42→19:44)
[2021-12-14] MEDS: FLUTICASONE 50MCG/SPRAY NASAL 16GM EA NOSTRIL SCH (08:21)
[2021-12-14] MEDS: NYSTATIN 100,000 UNIT/ML SUSP 500,000 UNIT/5 ML CUP PO SCH ×4 (08:21→20:49)
[2021-12-14] MEDS: TRIAMTERENE-HCTZ 37.5-25MG 1 EACH CAP PO SCH (08:22)
[2021-12-14] MEDS: PANTOPRAZOLE 40 MG TABLET PO SCH (08:24)
[2021-12-14] MEDS: NICOTINE 14MG/24HR PATCH TRANSDERM SCH (08:24)
[2021-12-14] MEDS: DULoxetine HCL 30 MG CAPSULE.DR PO SCH (08:24)
[2021-12-14] MEDS: AMOXIC-POT CLAV 875-125MG 1 EACH TAB PO SCH ×2 (08:24→20:15)
[2021-12-14] MEDS: FAMOTIDINE 20 MG TAB PO SCH ×2 (08:24→20:15)
[2021-12-14] MEDS: amLODIPine 5 MG TAB PO SCH (08:24)
[2021-12-14] MEDS: GABAPENTIN 400 MG CAP PO SCH ×3 (08:24→20:48)
[2021-12-14] MEDS: lamoTRIgine 25 MG TAB PO SCH (08:25)
--- NOTE | 2021-12-14 16:37 | P.PN ---
Progress Note - Text Progress Note Date: 12/14/21 Interval history: Patient was in the [facility] attending group. She is hopeful for discharge soon. At this time patient denies any suicidal or homicidal ideations intent or plan. Denies any auditory or visual hallucinations. Patient denies any side effects from the medications and has been compliant with meds. She reports the medications have been helpful and she feels "more positive on the inside." Mental status exam: General Appearance: Patient appears to be stated age, dressed in clean causual attire, hair dyed red. Behavior: No agitated behavior. Patient is calm, cooperative and directable. Speech: Patient's speech is fluent and nonpressured. Mood/Affect: Mood is improving mildly, affect is congruent and constricted. Suicidality/Homicidality: Patient denies having any suicidal or homicidal ideation intent or plan. Perceptions: Patient denies any auditory or visual hallucinations. Though content/process: There is no evidence of any delusional thought content and thought process is linear and goal-directed. Memory and concentration: AOX3, grossly intact for the purposes of this session Judgment and insight: improving mildly Assessment/Plan: Continue with current diagnosis. Patient continues to meet criteria for inpatient psychiatric admission for symptom stabilization and safety. Patient will be maintained on current psychotropic medication regimen. Cymbalta increased to 90 mg total daily dose this morning for depression and Lamictal increased to 75 mg daily for mood. Monitor for medication compliance and for any psychotropic medication side effects. Will continue to monitor ongoing response to treatment. Encouraged participation in milieu.
[2021-12-14] MEDS: PRAMIPEXOLE 1 MG TAB PO SCH (20:14)
[2021-12-14] MEDS: DULoxetine HCL 60 MG CAPSULE.DR PO SCH (20:15)
[2021-12-15] MEDS: ALBUTEROL HFA INHALER INHALATION PRN ×2 (05:50→10:57)
[2021-12-15] MEDS: FAMOTIDINE 20 MG TAB PO SCH ×2 (07:39→19:56)
[2021-12-15] MEDS: PANTOPRAZOLE 40 MG TABLET PO SCH (07:39)
[2021-12-15] MEDS: lamoTRIgine 25 MG TAB PO SCH (07:39)
[2021-12-15] MEDS: NICOTINE 14MG/24HR PATCH TRANSDERM SCH (07:39)
[2021-12-15] MEDS: AMOXIC-POT CLAV 875-125MG 1 EACH TAB PO SCH ×2 (07:40→19:55)
[2021-12-15] MEDS: FLUTICASONE 50MCG/SPRAY NASAL 16GM EA NOSTRIL SCH (07:40)
[2021-12-15] MEDS: amLODIPine 5 MG TAB PO SCH (07:40)
[2021-12-15] MEDS: GABAPENTIN 400 MG CAP PO SCH ×3 (07:40→19:55)
[2021-12-15] MEDS: NYSTATIN 100,000 UNIT/ML SUSP 500,000 UNIT/5 ML CUP PO SCH ×4 (07:40→19:56)
[2021-12-15] MEDS: DULoxetine HCL 30 MG CAPSULE.DR PO SCH (07:40)
[2021-12-15] MEDS: TRIAMTERENE-HCTZ 37.5-25MG 1 EACH CAP PO SCH (07:41)
--- NOTE | 2021-12-15 17:39 | P.PN ---
Progress Note - Text Progress Note Date: 12/15/21 Interval history: Patient is agreeable to speak with this securities underwriter. She requests to be put back on her Flexeril for her muscle spasms at bedtime. At this time patient denies any suicidal or homicidal ideations intent or plan. Denies any auditory or visual hallucinations. Patient denies any side effects from the medications and has been compliant with meds. She reports her mood is "great", but feels she is in pain in her muscles and requests her Flexeril. I called [facility] [phone] and confirmed she had an active prescription for Flexeril 10 mg TID, last filled November 18, 2021. Mental status exam: General Appearance: Patient appears to be stated age, dressed in clean causual attire, hair dyed red. Behavior: No agitated behavior. Patient is calm, cooperative and directable. Speech: Patient's speech is fluent and nonpressured. Mood/Affect: Mood is improving mildly, affect is congruent and constricted. Suicidality/Homicidality: Patient denies having any suicidal or homicidal ideation intent or plan. Perceptions: Patient denies any auditory or visual hallucinations. Though content/process: There is no evidence of any delusional thought content and thought process is linear and goal-directed. Memory and concentration: AOX3, grossly intact for the purposes of this session Judgment and insight: improving mildly Assessment/Plan: Continue with current diagnosis. Patient continues to meet criteria for inpatient psychiatric admission for sympt om stabilization and safety. Patient will be maintained on current psychotropic medication regimen, except will order Flexeril 10 mg BID for muscle spams. Monitor for medication compliance and for any psychotropic medication side effects. Will continue to monitor ongoing response to treatment. Encouraged participation in milieu.
[2021-12-15] MEDS: CYCLOBENZAPRINE 10 MG TAB PO PRN (17:42)
[2021-12-15] MEDS: PRAMIPEXOLE 1 MG TAB PO SCH (19:55)
[2021-12-15] MEDS: DULoxetine HCL 60 MG CAPSULE.DR PO SCH (19:55)
[2021-12-16] MEDS: AMOXIC-POT CLAV 875-125MG 1 EACH TAB PO SCH ×2 (08:12→20:11)
[2021-12-16] MEDS: PANTOPRAZOLE 40 MG TABLET PO SCH (08:12)
[2021-12-16] MEDS: FAMOTIDINE 20 MG TAB PO SCH ×2 (08:12→20:11)
[2021-12-16] MEDS: DULoxetine HCL 30 MG CAPSULE.DR PO SCH (08:12)
[2021-12-16] MEDS: NYSTATIN 100,000 UNIT/ML SUSP 500,000 UNIT/5 ML CUP PO SCH ×4 (08:12→20:14)
[2021-12-16] MEDS: GABAPENTIN 400 MG CAP PO SCH ×3 (08:12→21:15)
[2021-12-16] MEDS: amLODIPine 5 MG TAB PO SCH (08:12)
[2021-12-16] MEDS: lamoTRIgine 25 MG TAB PO SCH (08:13)
[2021-12-16] MEDS: FLUTICASONE 50MCG/SPRAY NASAL 16GM EA NOSTRIL SCH (08:14)
[2021-12-16] MEDS: NICOTINE 14MG/24HR PATCH TRANSDERM SCH (08:14)
[2021-12-16] MEDS: TRIAMTERENE-HCTZ 37.5-25MG 1 EACH CAP PO SCH (08:17)
--- NOTE | 2021-12-16 11:46 | P.HP ---
Psychiatric H&P - . H&P Date: 12/13/21 (H&P missing from 12/13/2021 - Not sure if EMR did not save.) History & Physical: Allergies Allergy/AdvReac Type Severity Reaction Status Date / Time alprazolam [From Xanax] Allergy Unknown Verified 12/13/21 01:28 codeine Allergy Dyspnea Verified 12/13/21 01:28 Latex, Natural Rubber Allergy Rash/Hives Verified 12/13/21 01:28 pentazocine lactate Allergy Dyspnea Verified 12/13/21 01:28 [From Talwin] morphine AdvReac Itching Verified 12/13/21 01:28 Vital Signs Temp 98.2 F 12/16/21 07:01 Pulse 127 H 12/16/21 08:10 Resp 16 12/16/21 08:10 BP 126/70 12/16/21 08:10 Pulse Ox 96 12/16/21 07:01 FiO2 Intake & Output 12/15/21 12/16/21 12/16/21 18:59 06:59 18:59 Weight 68.2 kg Laboratory Last Values Estimated Ave Glu mg/dL 103 12/11/21 03:40 Hemoglobin A1c 5.2 % (0.0-6.0) 12/11/21 03:40 Triglycerides 200.00 mg/dL (0.00-149.00) H 12/11/21 03:40 Cholesterol 226.00 mg/dL (0.00-200.00) H 12/11/21 03:40 LDL Cholesterol, Calc 157.0 mg/dL (0.0-131.0) H 12/11/21 03:40 VLDL Cholesterol, Calc 40.00 mg/dL (5.00-40.00) 12/11/21 03:40 HDL Cholesterol 29.00 mg/dL (40.00-60.00) L 12/11/21 03:40 Cholesterol/HDL Ratio 7.79 Ratio 12/11/21 03:40 12/13/21 11:45 IDENTIFYING DATA: Patient is a 51-year-old female who presented to the hospital after intentional overdose on multiple medications. HPI: Patient presented to the hospital on 12/04/2021, brought into the hospital for intentional overdose on multiple medications after being in an argument with her sister. The patient was in an argument with her sister and then locked herself in the bathroom an overdose. EMS was called and the patient was brought to the hospital. The patient required medical stabilization in the ICU and was intubated. Once stabilized, the patient was admitted to the psychiatric unit. Upon evaluation the psychiatric unit, the patient does express that she intentionally overdosed. She reports a significant history of prior attempts at overdose, depression, and suicide. She denies any significant history of auditory or visual hallucinations. She reports no history of paranoia or other delusions. She denies any significant history of bipolar episodes. PAST PSYCHIATRIC HISTORY: Patient states that she has significant history of depression. The patient has trialed numerous psychotropic medications including Lamictal, clonazepam, adderal XR, Neurontin and Cymbalta, and Vrylar. Reports numerous psychiatric admissions for overdose. She reports that this is her 10th inpatient psychiatric admission. She is currently not open with any outpatient psychiatric follow-up. The patient has had numerous attempts at suicide by overdose in the past PMH: Past Medical History: Asthma, Cancer, COPD, Hypertension, Musculoskeletal Disorder, Thyroid Disorder Additional Past Medical History / Comment(s): herniated disc, had surg. 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 cervical cancer History of Any Multi-Drug Resistant Organisms: ESBL Date of last positivie culture/infection: 12/07/21 ESBL Klebsiella MDRO Source:: Sputum Past Surgical History: Back Surgery, Hysterectomy, Tubal Ligation Additional Past Surgical History / Comment(s): lipoma removal, back surg. x2-2nd was fusion Past Anesthesia/Blood Transfusion Reactions: No Reported Reaction Smoking Status: Current every day smoker ALLERGIES: As per HPI CHEMICAL DEPENDENCY HISTORY: No reported drug use or chemical dependency history. FAMILY PSYCHIATRIC/SUBSTANCE USE HISTORY: Unable to obtain. SOCIAL HISTORY: Patient completed up to 11th grade. She lives with her sister. She has 2 children, the youngest being 13 currently lives with her father. She is unemployed and receives Social Security income. MENTAL STATUS EXAM: General Appearance: Patient appears to be stated age is alert, directable, and attempts to cooperate. Patient appears to have fair hygiene and grooming. Multiple tattoos. Red colored hair. Behavior: Patient is seated without any agitated behavior. Psychomotor activity appears normal. Speech: Patient's speech is fluent and nonpressured. Mood/Affect: Patient reports their mood is depressed, affect is congruent and constricted. Suicidality/Homicidality: Patient is currently denying any suicidal or homicidal ideation, intention, and/or plan. Perceptions: Patient denies any visual hallucinations and denies any auditory hallucinations Though content/process: There is no evidence of any delusional thought content and thought process is linear and goal-directed. Memory and concentration: AOX3, grossly intact for the purposes of this session. Can spell "WORLD" backwards Judgment and insight: Fair STRENGTHS/WEAKNESSES: Strength is that the patient has stable housing and income. Weakness is that the patient has very poor coping skills and multiple prior attempts at suicide. INTELLECT: average IMPRESSIONS: Major depressive disorder, recurrent, severe Tobacco Use Disorder PLAN: -Patient is admitted under voluntary status to MHU for stabilization of psychiatric symptoms and safety. Patient signed adult voluntary form and medication consent and is placed in patient's chart. -Medications : We will increase Cymbalta to 30 mg by mouth every morning and 60 mg by mouth daily at bedtime for depression We will continue gabapentin 400 mg by mouth 3 times a day for off label use for anxiety -Ativan and Haldol PRN for agitation/aggression -Patient was counselled on substance abuse and desired to cut back on use -Patient was informed of the risks, benefits and side effects of the medication and patient verbally consented to taking the medications. Patient signed med consent form and was placed in chart. -Internal Medicine consult to perform medical evaluation and physical. -NRT - nicotine patch -SW on board for discharge planning. Encourage patient to participate in groups to work on coping skills. 12/16/21 11:46
--- NOTE | 2021-12-16 11:54 | P.PN ---
Progress Note - Text Progress Note Date: 12/16/21 Interval History: Patient was seen wandering the hallways and was directable and agreeable to speak with signwriter in the office. The patient reports that she is feeling significantly better. She has been adherent to her medications and reports no significant side effects at this time. She is currently denying any suicidal or homicidal ideation, intention, and/or plan. She is not reporting any issues regarding her sleep or her appetite. She denies any auditory or visual hallucinations. The patient does express that her medications need to be out of reach for her and that her sister will help her manage her medications. Mental Status Exam: General Appearance: Patient appears to be stated age is alert, directable, and cooperative. Behavior: Patient is calmly seated without any agitated behavior. Speech: Patient's speech is fluent and nonpressured. Mood/Affect: Mood is improving mildly, affect is congruent and constricted. Suicidality/Homicidality: Patient denies having any suicidal or homicidal ideation intent or plan. Perceptions: Patient denies any visual hallucinations and denies any auditory hallucinations Though content/process: There is no evidence of any delusional thought content and thought process is linear and goal-directed. Memory and concentration: AOX3, grossly intact for the purposes of this session Judgment and insight: Improving mildly Vital Signs Temp 98.2 F 12/16/21 07:01 Pulse 127 H 12/16/21 08:10 Resp 16 12/16/21 08:10 BP 126/70 12/16/21 08:10 Pulse Ox 96 12/16/21 07:01 FiO2 Intake & Output 12/15/21 12/16/21 12/16/21 18:59 06:59 18:59 Weight 68.2 kg Assessment Major depressive disorder, recurrent, severe Tobacco use disorder Plan: -Patient continues to meet criteria for inpatient psychiatric admission for symptom stabilization and safety. Patient has signed adult voluntary form and medication consent and was placed in patient's chart. -Medications: Continue Cymbalta 30 mg by mouth every morning and 60 mg by mouth daily at b edtime Continue Lamictal 75 mg by mouth every morning Continue gabapentin 400 mg by mouth 3 times a day -When necessary [place] and Geodon for agitation/aggression. -NRT - nicotine patch -SW on board for discharge planning. Encouraged the patient to participate in milieu.
[2021-12-16] MEDS: CYCLOBENZAPRINE 10 MG TAB PO PRN ×2 (12:47→20:14)
[2021-12-16] MEDS: DULoxetine HCL 60 MG CAPSULE.DR PO SCH (20:11)
[2021-12-16] MEDS: PRAMIPEXOLE 1 MG TAB PO SCH (20:11)
[2021-12-17] MEDS: DULoxetine HCL 30 MG CAPSULE.DR PO SCH (08:07)
[2021-12-17] MEDS: AMOXIC-POT CLAV 875-125MG 1 EACH TAB PO SCH (08:07)
[2021-12-17] MEDS: GABAPENTIN 400 MG CAP PO SCH (08:07)
[2021-12-17] MEDS: FAMOTIDINE 20 MG TAB PO SCH (08:07)
[2021-12-17] MEDS: FLUTICASONE 50MCG/SPRAY NASAL 16GM EA NOSTRIL SCH (08:07)
[2021-12-17] MEDS: amLODIPine 5 MG TAB PO SCH (08:07)
[2021-12-17] MEDS: ALBUTEROL HFA INHALER INHALATION PRN (08:08)
[2021-12-17] MEDS: lamoTRIgine 25 MG TAB PO SCH (08:08)
[2021-12-17] MEDS: NYSTATIN 100,000 UNIT/ML SUSP 500,000 UNIT/5 ML CUP PO SCH (08:08)
[2021-12-17] MEDS: PANTOPRAZOLE 40 MG TABLET PO SCH (08:08)
[2021-12-17] MEDS: NICOTINE 14MG/24HR PATCH TRANSDERM SCH (08:08)
[2021-12-17 08:10] VITALS: BP 107/77; PULSE 116; RESP 18; TEMP 97.2
[2021-12-17] MEDS: TRIAMTERENE-HCTZ 37.5-25MG 1 EACH CAP PO SCH (08:48)
[2021-12-17] MEDS: CYCLOBENZAPRINE 10 MG TAB PO PRN (08:48)
--- NOTE | 2021-12-17 11:51 | P.DS ---
Providers Date of admission: 12/12/21 23:45 Expected date of discharge: 12/17/21 Attending physician: Alexys Baker MD Consults: 12/12/21 22:12 Consult Physician Routine Consulting Provider[facility] Reason/Comments: history and physical/medical management Do you want consulting provider notified?: Yes Primary care physician: Physician Nonstaff - Discharge Diagnosis(es) (1) Major depressive disorder, recurrent episode, severe Status: Acute Priority: High (2) Tobacco use disorder Status: Chronic Priority: Medium Hospital Course: Admission HPI: Initial psychiatric evaluation was completed on 12/13/2021: "Patient is a 51-year-old female who presented to the hospital after intentional overdose on multiple medications. HPI: Patient presented to the hospital on 12/04/2021, brought into the hospital for intentional overdose on multiple medications after being in an argument with her sister. The patient was in an argument with her sister and then locked herself in the bathroom an overdose. EMS was called and the patient was brought to the hospital. The patient required medical stabilization in the ICU and was intubated. Once stabilized, the patient was admitted to the psychiatric unit. Upon evaluation the psychiatric unit, the patient does express that she intentionally overdosed. She reports a significant history of prior attempts at overdose, depression, and suicide. She denies any significant history of auditory or visual hallucinations. She reports no history of paranoia or other delusions. She denies any significant history of bipolar episodes. Patient states that she has significant history of depression. The patient has trialed numerous psychotropic medications including Lamictal, clonazepam, adderal XR, Neurontin and Cymbalta, and Vrylar. Reports numerous psychiatric admissions for overdose. She reports that this is her 10th inpatient psychiatric admission. She is currently not open with any outpatient psychiatric follow-up. The patient has had numerous attempts at suicide by overdose in the past." Hospital course: Upon admission to the unit patient was initially admitted to the ICU on 12/04/2021 after intentional overdose of numerous medications. She was medically stabilized and transferred to the psychiatric unit on 12/13/2021. Patient was however directable and agreeable to commence treatment once evaluated on the psychiatric. Patient got along well with other patients on the unit and followed unit protocol. Patient was compliant with the medications and denied any side effects throughout hospital course. Patient was started on Cymbalta for management of depression and was continued on gabapentin for off label use for anxiety. Patient spoke of her stressors and engaged in therapy both group and individual. Patient was also seen by medical team for history and physical exam. Over the course of the hospitalization, the patient displayed significant improvement in regards her target symptoms of depression and suicidal ideation. We worked at length on improving coping skills and providing a safety plan including monitoring of the administration of her medications. On the day of discharge, the patient is not reporting any suicidal or homicidal ideation, intention, and/or plan. She is not reporting any auditory or visual hallucinations. She denies any paranoia or other delusions. Patient denies any access to firearms or other weapons. The patient states that she has able to speak with her sister and work things through. The patient denies any current history of substance use however was counseled on great length on abstaining from all substances including alcohol and marijuana. The patient was counseled at length on importance of medication adherence and appropriate outpatient follow-up. Prior to discharge, family meeting will be arranged by social work specialist to answer any questions and ensure safety. Mental status exam: General Appearance: Patient appears to be stated age is alert, pleasant, and cooperative. Patient is in no acute distress and has fair hygiene and grooming. Patient has numerous tattoos. Red hair. Behavior: Patient is calmly seated without any agitated behavior. Speech: Patient's speech is fluent and nonpressured. Mood/Affect: Patient reports their mood is "much better", affect is congruent and euthymic to bright. Suicidality/Homicidality: Patient denies having any suicidal or homicidal ideation intent or plan. Perceptions: Patient denies any auditory or visual hallucinations. Though content/process: There is no evidence of any delusional thought content and thought process is linear and goal-directed. Patient is future oriented. Memory and concentration: AOX3, grossly intact for the purposes of this session. Can spell "WORLD" backwards correctly. Judgment and insight: Improved with guarded prognosis Vital Signs Temp 97.2 F L 12/17/21 08:09 Pulse 116 H 12/17/21 08:09 Resp 18 12/17/21 08:09 BP 107/77 12/17/21 08:09 Pulse Ox 96 12/16/21 07:01 FiO2 Laboratory Results Estimated Ave Glu mg/dL 103 12/11/21 03:40 Hemoglobin A1c 5.2 % (0.0-6.0) 12/11/21 03:40 Triglycerides 200.00 mg/dL (0.00-149.00) H 12/11/21 03:40 Cholesterol 226.00 mg/dL (0.00-200.00) H 12/11/21 03:40 LDL Cholesterol, Calc 157.0 mg/dL (0.0-131.0) H 12/11/21 03:40 VLDL Cholesterol, Calc 40.00 mg/dL (5.00-40.00) 12/11/21 03:40 HDL Cholesterol 29.00 mg/dL (40.00-60.00) L 12/11/21 03:40 Cholesterol/HDL Ratio 7.79 Ratio 12/11/21 03:40 Allergies Allergy/AdvReac Type Severity Reaction Status Date / Time alprazolam [From Xanax] Allergy Unknown Verified 12/13/21 01:28 codeine Allergy Dyspnea Verified 12/13/21 01:28 Latex, Natural Rubber Allergy Rash/Hives Verified 12/13/21 01:28 pentazocine lactate Allergy Dyspnea Verified 12/13/21 01:28 [From Talwin] morphine AdvReac Itching Verified 12/13/21 01:28 Impression: Major depressive disorder, recurrent, severe Tobacco use disorder Plan: -Continue with discharge today as patient has improved and stabilized psychiatrically and is not currently an imminent threat to herself and/or others. Patient will remain at chronically elevated risk for harm to self and/or others due to her prior attempts at suicide and overdose. -Continue medications: Cymbalta 30 mg by mouth every morning, 60 mg by mouth daily at bedtime for depression Lamictal 75 mg by mouth every morning for stabilization Gabapentin 400 mg 3 times a day for off label use for anxiety The patient reports that she is out of her medical meds and was discharged also on a regimen of Mirapex and hydrochlorothiazide -Patient was counseled on the need for medication compliance and appropriate follow-up at mental health and also primary care for medical issues. Patient verbalized understanding and agreed. -Social work to arrange for and conduct family meeting to ensure safety upon discharge and answer any questions/concerns. Social work also to arrange for patients follow up appointments with [facility] for psychiatric care along with follow up with primary care provider. -Patient counseled on abstaining from recreational drugs and marijuana and alcohol. Was informed/educated on the adverse effects on their physical and mental health. Patient verbally agreed and understood. -Patient was instructed to return to the hospital or seek immediate medical care if their psychiatric or medical symptoms do worsen or reoccur. -Psychoeducation and supportive therapy provided to patient. Risks and benefits of pharmacological treatment versus the risks and benefits of nontreatment weight and discussed. Informed consent discussion held. Common side effects of psychotropics discussed such as, but not limited to headache, GI disturbance, sexual dysfunction, movement disorders, sedation, and orthostatic hypotension. Life threatening and blackbox warnings of prescribed medications also discussed. Potential risks of operating a vehicle or heavy machinery discussed with patient at length. Advised on importance of compliance and a reliable and responsible manner. Patient advised to review FDA consumer labeling of all medications prior to taking. Patient verbalized understanding of potential risks, and agrees with current treatment plan. Patient advised to medically contact physician/emergency personnel if any acute changes in condition occur. Patient Condition at Discharge: Stable Plan - Discharge Summary New Discharge Prescriptions: New DULoxetine HCL [Cymbalta] 30 mg PO DAILY 14 Days cap lamoTRIgine [LaMICtal] 75 mg PO QAM 14 Days tab Pramipexole [Mirapex] 1 mg PO HS 14 Days tab DULoxetine HCL [Cymbalta] 60 mg PO HS 14 Days cap Triamterene-Hctz 37.5-25Mg [Dyazide 37.5-25 Capsule] 1 each PO DAILY 14 Days cap Gabapentin [Neurontin] 400 mg PO TID 15 Days #45 cap Continue Fluticasone Nasal Cardale [Flonase Nasal Cardale] 2 spray EA NOSTRIL DAILY Dexlansoprazole [Dexilant] 60 mg PO DAILY Famotidine [Pepcid] 20 mg PO BID Albuterol Sulfate [Albuterol Sulfate Hfa] 1 - 2 puff PO RT-Q4H PRN PRN Reason: Shortness Of Breath amLODIPine [Norvasc] 5 mg PO DAILY 14 Days tab Discontinued lamoTRIgine [LaMICtal] 50 mg PO QAM Cariprazine HCl [Vraylar] 3 mg PO QAM Amoxic-Pot Clav 875-125Mg [Augmentin 875-125] 1 each PO Q12HR 6 Days #12 tab Triamterene/Hydrochlorothiazid [Dyazide 37.5-25 Capsule] 1 cap PO DAILY Pramipexole [Mirapex] 1 mg PO HS Dextroamphetamine/Amphetamine [Adderall Xr] 20 mg PO QAM DULoxetine HCL [Cymbalta] 60 mg PO DAILY Nystatin 100,000 Unit/ml Susp [Mycostatin Oral Susp] 500,000 unit PO QID 2 Days #10 ml Gabapentin [Neurontin] 400 mg PO TID #0 Discharge Medication List Dexlansoprazole [Dexilant] 60 mg PO DAILY 09/06/21 [History] Fluticasone Nasal Cardale [Flonase Nasal Cardale] 2 spray EA NOSTRIL DAILY 09/06/21 [History] Albuterol Sulfate [Albuterol Sulfate Hfa] 1 - 2 puff PO RT-Q4H PRN 12/05/21 [History] Famotidine [Pepcid] 20 mg PO BID 12/05/21 [History] DULoxetine HCL [Cymbalta] 30 mg PO DAILY 14 Days cap 12/17/21 [Rx] DULoxetine HCL [Cymbalta] 60 mg PO HS 14 Days cap 12/17/21 [Rx] Gabapentin [Neurontin] 400 mg PO TID 15 Days #45 cap 12/17/21 [Rx] Pramipexole [Mirapex] 1 mg PO HS 14 Days tab 12/17/21 [Rx] Triamterene-Hctz 37.5-25Mg [Dyazide 37.5-25 Capsule] 1 each PO DAILY 14 Days cap 12/17/21 [Rx] amLODIPine [Norvasc] 5 mg PO DAILY 14 Days tab 12/17/21 [Rx] lamoTRIgine [LaMICtal] 75 mg PO QAM 14 Days tab 12/17/21 [Rx] Follow up Appointment(s)/Referral(s): [facility] [Outside] - 12/18/21 11:00 am ( 12-18-21 at 11:00 with Venkat Guerrero at [place] office 12-25-21 at 8:30 with SHAYLA Craft at office) [facility] [NON-STAFF] - 1 Week Patient Instructions/Handouts: How to Stop Smoking (DC), Depression (DC) Activity/Diet/Wound Care/Special Instructions: pt discharged with prescriptions and discharge papers reviewed. Pt without any distress. Activity and diet as tolerated. Avoid the use of street drugs and alco hol. Take all medications as prescribed. When you are in need of refills on your medications please contact your medical provider and/or outpatient psychiatrist to have this done. Please go to scheduled outpatient appointment for aftercare treatment. If symptoms return or become worse, call the crisis line at and/or go to the nearest emergency room for evaluation Discharge Disposition: HOME SELF-CARE
== END 2021-12-17 11:16 | disposition home or self-care (01) | DRG 885 ==
LOC: 3MHU 23:45
PROVIDERS: ADMIT Psychiatry & Neurology Psychiatry; ATTEND Psychiatry & Neurology Psychiatry
DX: F33.2 Major depressive disorder, recurrent severe without psychotic features (principal); F17.200 Nicotine dependence, unspecified, uncomplicated; F41.9 Anxiety disorder, unspecified; I10 Essential (primary) hypertension; J44.9 Chronic obstructive pulmonary disease, unspecified; Z79.899 Other long term (current) drug therapy; Z85.41 Personal history of malignant neoplasm of cervix uteri; Z90.710 Acquired absence of both cervix and uterus
CPT/HCPCS: 80061; 83036

== ENCOUNTER 2022-02-11 15:46 | Emergency (ER) | payer MEDICARE, OTHER ==
[2022-02-11 16:18] VITALS: BP 135/86; PULSE 90; RESP 18; TEMP 98.3
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
== END 2022-02-11 16:43 | disposition left against medical advice (07) ==
LOC: EC 15:46
DX: Z53.9 Procedure and treatment not carried out, unspecified reason (principal)
CPT/HCPCS: 70450; 70486; 99499